=== PATIENT | female | born 1955 | race American Indian/Alaskan Native ===

== ENCOUNTER 2017-11-23 19:57 | Observation (INO) ==
[2017-11-23] MEDS ORDERED: IOPAMIDOL 100 ML BOTTLE IV ONE (19:58)
[2017-11-23] MEDS ORDERED: 0.9 % SODIUM CHLORIDE 1,000 ML IV ONE (20:03)
[2017-11-23] MEDS ORDERED: ONDANSETRON 4 MG/2 ML VIAL IV ONE (20:06)
[2017-11-23] MEDS ORDERED: LACTATED RINGERS 1,000 ML IV ONE (20:06)
--- NOTE | 2017-11-23 20:07 | Emergency Department Note ---
Nausea/Vomiting/Diarrhea HPI - General Chief complaint: Nausea/Vomiting/Diarrhea Stated complaint: nausea, vomiting, abd pain Time Seen by Provider: 11/23/17 20:03 Source: EMS Mode of arrival: EMS Limitations: no limitations - History of Present Illness HPI Narrative: This patient comes in for nausea and vomiting. I saw her on November 16 with what appear to be a partially treated UTI and we switched her to Cipro. She says she is continued to be nauseated with some vomiting since then. She does not have much abdominal pain and what she does have she attributes to the vomiting. - Related Data Home Medications Medication Instructions Recorded Confirmed freestyle blood glucose MISCELLANE 02/13/16 09/22/16 freestyle lite strip MISCELLANE 02/13/16 09/22/16 lancets See Dose Instructions .ROUTE 02/13/16 09/22/16 .MEDSUPPLY HYDROcodone/APAP 5/325MG [[place] 1 tab PO QIDP PRN 07/26/16 11/23/17 5-325Mg] Metoclopramide [Reglan] 10 mg PO QIDP PRN 11/23/17 11/23/17 tiZANidine [Zanaflex] 4 mg PO QIDP PRN 11/23/17 11/23/17 Previous Rx's Medication Instructions Recorded Ondansetron HCl [Zofran ODT] 4 mg SL Q4-6HP PRN #10 tab 11/16/17 Allergies Allergy/AdvReac Type Severity Reaction Status Date / Time venom-honey bee Allergy Severe Anaphylaxis Verified 11/16/17 12:00 [bee venom (honey bee)] capsaicin AdvReac Mild Hives Verified 11/24/17 06:20 codeine AdvReac Mild Nausea Verified 11/24/17 06:20 Minocycline AdvReac Mild Nausea Verified 11/16/17 12:00 Oxycodone AdvReac Mild Unknown Verified 11/24/17 06:20 Review of Systems All systems ED: reviewed and negative except as stated. Past Medical History - Past Medical History Medical history: Reports: arthritis, coronary artery disease, DM, glaucoma, other Surgical history ED: Reports: appendectomy, cholecystectomy, coronary bypass ( CABG), VU/BSO (tubal ligation) - Social History smoking status: Current every day smoker Alcohol use: Reports: Occasionally Drug use: Reports: none Physical Exam Limitations: no limitations General appearance: alert Head: atraumatic Eye: Present: normal appearance ENT: normal exam Neck: Present: normal inspection Chest: Present: normal inspection Respiratory: Present: normal lung sounds bilaterally Cardiovascular: Present: regular rate, normal rhythm, normal heart sounds Abdominal: Present: soft, tenderness. Absent: distention Abdominal tenderness: Present: diffuse, mild Neurological: Present: alert Psychiatric: Present: normal affect, normal mood Skin: Present: warm, dry, intact Course Vital Signs Temperature 98.7 F 11/23/17 19:59 Pulse Rate 79 11/23/17 19:59 Respiratory Rate 19 11/23/17 19:59 Blood Pressure 207/90 11/23/17 19:59 Pulse Oximetry (%) 99 11/23/17 19:59 Temperature 97.6 F 11/24/17 01:30 Pulse Rate 85 11/24/17 01:30 Respiratory Rate 18 11/24/17 01:30 Blood Pressure 164/95 11/23/17 23:18 Pulse Oximetry (%) 100 11/24/17 01:30 Nausea/Vomiting/Diarrhea - [facility] Narrative Medical decision making narrative: This patient had abnormal electrolytes with a sodium of 125 potassium 2.6. She will be admitted to the hospital by the hospitalist service. - Lab Data Lab results reviewed: Yes I reviewed the patient's lab results. Result diagrams: 11/24/17 04:00 11/23/17 20:30 Lab Results 11/23/17 11/23/17 11/23/17 Range/Units 20:20 20:30 20:30 WBC 7.1 (4.5-11.0) K/mcL RBC 4.28 (4.00-5.20) M/mcL Hgb 13.4 (12.0-15.0) g/dL Hct 39.0 (36.0-48.0) % MCV 91.2 (80.0-100.0) fL MCH 31.4 (26.0-34.0) pg MCHC 34.4 (31.0-36.0) g/dL RDW 13.7 (11.5-14.5) % Plt Count 247 (140-440) K/mcL MPV 6.7 L (7.4-10.4) fL Gran % 60.6 (38.0-78.0) % Lymph % (Auto) 30.4 (15.5-49.0) % [place] % (Auto) 7.7 (1.0-12.0) % Eos % (Auto) 0.9 (0.0-7.0) % Baso % (Auto) 0.4 (0.0-2.0) % Gran # 4.3 (1.8-8.0) K/mcL Lymph # (Auto) 2.1 (1.5-4.8) K/mcL Turner # (Auto) 0.5 (0.1-0.9) K/mcL Eos # (Auto) 0.1 (0.0-0.7) K/mcL Baso # (Auto) 0 (0.0-0.3) K/mcL Sodium 125 L (133-145) mmol/L Potassium 2.6 L* (3.3-5.1) mmol/L Chloride 83 L (96-108) mmol/L Carbon Dioxide 31 H (22-30) mmol/L Anion Gap 11.0 (8-16) BUN 6 (6-20) mg/dl Creatinine 0.7 (0.6-1.1) mg/dl GFR Calculation 94 Glucose 81 (70-105) mg/dL Calcium 8.8 (8.6-10.4) mg/dl Total Bilirubin 0.5 (0.0-1.0) mg/dL AST 23 (0-37) U/l ALT 18 (0-40) U/l Alkaline Phosphatase 90 (39-117) U/L Troponin T (0-0.03) ng/ml Total Protein 6.8 (5.9-8.4) gm/dL Albumin 4.0 (3.2-5.2) gm/dL Globulin 2.8 (2.2-3.7) gm/dL Albumin/Globulin Ratio 1.4 (1.0-2.3) Lipase 32 (7-60) U/L Urine Color Colorless Urine Appearance Clear Urine pH 8.0 (5.0-9.0) Ur Specific [place] 1.002 (1.000-1.035) Urine Protein 30 A (NEG) mg/dL Urine Glucose (UA) Negative (NEG) mg/dL Urine Ketones Neg (NEG) mg/dL Urine Occult Blood 0.03 A (<0.03) mg/dL Urine Nitrate Neg (NEG) Urine Bilirubin Neg (NEG) mg/dL Urine Urobilinogen Neg (NEG) mg/dL Ur Leukocyte Esterase 25 A (NEG) /uL Urine RBC 1 (0-1) /hpf Urine WBC 2 (0-4) /hpf Ur Squamous Epith Cells < 1 (0-4) /hpf Urine Bacteria 0 (0) /hpf Urine Mucus Few (0) /hpf Ur Culture Indicated? No 11/23/17 Range/Units 20:30 WBC (4.5-11.0) K/mcL RBC (4.00-5.20) M/mcL Hgb (12.0-15.0) g/dL Hct (36.0-48.0) % MCV (80.0-100.0) fL MCH (26.0-34.0) pg MCHC (31.0-36.0) g/dL RDW (11.5-14.5) % Plt Count (140-440) K/mcL MPV (7.4-10.4) fL Gran % (38.0-78.0) % Lymph % (Auto) (15.5-49.0) % Turner % (Auto) (1.0-12.0) % Eos % (Auto) (0.0-7.0) % Baso % (Auto) (0.0-2.0) % Gran # (1.8-8.0) K/mcL Lymph # (Auto) (1.5-4.8) K/mcL Turner # (Auto) (0.1-0.9) K/mcL Eos # (Auto) (0.0-0.7) K/mcL Baso # (Auto) (0.0-0.3) K/mcL Sodium (133-145) mmol/L Potassium (3.3-5.1) mmol/L Chloride (96-108) mmol/L Carbon Dioxide (22-30) mmol/L Anion Gap (8-16) BUN (6-20) mg/dl Creatinine (0.6-1.1) mg/dl GFR Calculation Glucose (70-105) mg/dL Calcium (8.6-10.4) mg/dl Total Bilirubin (0.0-1.0) mg/dL AST (0-37) U/l ALT (0-40) U/l Alkaline Phosphatase (39-117) U/L Troponin T < 0.01 (0-0.03) ng/ml Total Protein (5.9-8.4) gm/dL Albumin (3.2-5.2) gm/dL Globulin (2.2-3.7) gm/dL Albumin/Globulin Ratio (1.0-2.3) Lipase (7-60) U/L Urine Color Urine Appearance Urine pH (5.0-9.0) Ur Specific [place] (1.000-1.035) Urine Protein (NEG) mg/dL Urine Glucose (UA) (NEG) mg/dL Urine Ketones (NEG) mg/dL Urine Occult Blood (<0.03) mg/dL Urine Nitrate (NEG) Urine Bilirubin (NEG) mg/dL Urine Urobilinogen (NEG) mg/dL Ur Leukocyte Esterase (NEG) /uL Urine RBC (0-1) /hpf Urine WBC (0-4) /hpf Ur Squamous Epith Cells (0-4) /hpf Urine Bacteria (0) /hpf Urine Mucus (0) /hpf Ur Culture Indicated? Disposition Pt seen by SIDE BOSS/PA only: No Clinical Impression: Hypokalemia, Hyponatremia Disposition: Xfer As Inpt ([facility]) Condition: Fair
[2017-11-23 21:25] LABS: Basophils # (Auto) 0 K/mcL (0.0-0.3); Basophils % (Auto) 0.4 % (0.0-2.0); Eosinophils # (Auto) 0.1 K/mcL (0.0-0.7); Eosinophils % (Auto) 0.9 % (0.0-7.0); Granulocytes % (Auto) 60.6 % (38.0-78.0); Lymphocytes # (Auto) 2.1 K/mcL (1.5-4.8); Lymphocytes % (Auto) 30.4 % (15.5-49.0); Mean Cell Volume 91.2 fL (80.0-100.0); Mean Corpuscular HGB Conc 34.4 g/dL (31.0-36.0); Mean Corpuscular Hemoglobin 31.4 pg (26.0-34.0); Monocytes # (Auto) 0.5 K/mcL (0.1-0.9); Monocytes % (Auto) 7.7 % (1.0-12.0); Platelet Count 247 K/mcL (140-440); RBC 4.28 M/mcL (4.00-5.20); Red Cell Distribution Width 13.7 % (11.5-14.5)
[2017-11-23 21:30] LABS: Appearance,Urine CLEAR; Bacteria,Urine 0 /hpf (0); Bilirubin,Urine NEG (NEG); Color,Urine COLORLESS; Glucose,Urine (UA) NEGATIVE (NEG); Leukocyte Esterase,Urine 25 /uL (NEG); Mucus,Urine FEW /hpf (0); Protein,Urine 30 mg/dL (NEG); Specific Gravity,Urine 1.002 (1.000-1.035); Urine Blood 0.03 mg/dL (<0.03); Urine RBC 1 /hpf (0-1); Urine Squamous Epithelial Cell < 1 /hpf (0-4); Urine WBC 2 /hpf (0-4); Urobilinogen,Urine NEG (NEG)
[2017-11-23 21:56] LABS: ALT/SGPT 18 U/l (0-40); Albumin/Globulin Ratio 1.4 (1.0-2.3); Alkaline Phosphatase 90 U/L (39-117); Blood Urea Nitrogen 6 mg/dl (6-20); Lipase 32 U/L (7-60)
[2017-11-24] MEDS ORDERED: ACETAMINOPHEN 325 MG TABLET PO PRN (02:43)
[2017-11-24] MEDS ORDERED: DEXTROSE 50% 50 ML VIAL IV PRN (02:43)
[2017-11-24] MEDS ORDERED: DEXTROSE 31 GM ORAL.SUSP PO PRN (02:43)
[2017-11-24] MEDS ORDERED: POTASSIUM CHLORIDE 20 MEQ PACKET ONE ×2 (03:28→04:58)
[2017-11-24] MEDS: POTASSIUM CHLORIDE 20 MEQ PACKET PO SCH ×5 (03:28→10:17)
--- NOTE | 2017-11-24 03:30 | Internal Med History&Physical ---
Medical - H&P: HPI Patient information: Note initiated : 11/24/17 at 3:30 am Service Date, if different from initiated Date: [] Patient: Gina Garber 62 y/o F admitted on 11/24/17 for nausea, vomiting, abd pain. Chief Complaint: [] Chief complaint: Nausea vomiting thyroid History of present illness: Ms. Garber is a 62 year old F smoker with significant PMH of HTN, DM, 4 vessel CABG, s/p 2 cardiac stent, mitral valve repair, osteoarthritis, has recurrent nausea vomiting and diarrhea. She denies any food poisoning or sick contacts, or any tarry or bloody stool. Her potassium is 2.6, sodium 125. She says she regularly sipping/drinks 1-1/2-2 gallons of fluid a day. She was seen at ER on November 16 for similar symptoms. Otherwise she is asymptomatic. She will be placed on observation for electrolyte replacement. All systems: reviewed and no additional remarkable complaints except as stated - Gastrointestinal Gastrointestinal: Present: diarrhea, nausea, vomiting Medical - H&P: PMH Medical history: HTN, DM, 4 vessel CABG, s/p 2 cardiac stent, mitral valve repair, osteoarthritis T12 compression fracture 07/2017 Surgical history: s/p CABGx4, s/p MV repair, appendectomy, cholecystectomy, coronary bypass (CABG) , VU/BSO (tubal ligation) Pertinent family history: DM, CAD, alcohol and drug abuse Smoking status: Current every day smoker Drug use: none Alcohol use: none Medical - H&P: Meds Home Medications Medication Instructions Recorded Confirmed Type RX: HYDROcodone/APAP 5/325MG 1 tab PO QIDP PRN 07/26/16 11/23/17 History [[place] 5-325Mg] Ondansetron HCl [Zofran ODT] 4 mg SL Q4-6HP PRN #10 tab 11/16/17 11/23/17 Rx Metoclopramide [Reglan] 10 mg PO QIDP PRN 11/23/17 11/23/17 History tiZANidine [Zanaflex] 4 mg PO QIDP PRN 11/23/17 11/23/17 History Allergies Allergy/AdvReac Type Severity Reaction Status Date / Time venom-honey bee Allergy Severe Anaphylaxis Verified 11/16/17 12:00 [bee venom (honey bee)] capsaicin AdvReac Mild Hives Verified 11/24/17 06:20 codeine AdvReac Mild Nausea Verified 11/24/17 06:20 Minocycline AdvReac Mild Nausea Verified 11/16/17 12:00 Oxycodone AdvReac Mild Unknown Verified 11/24/17 06:20 Medical - H&P: Exam - Constitutional Vitals: Temp Pulse Resp BP Pulse Ox 97.6 F 85 18 164/95 100 11/24/17 01:30 11/24/17 01:30 11/24/17 01:30 11/23/17 23:18 11/24/17 01:30 - Head Head exam: Present: atraumatic, normocephalic - Eye Eye exam: Present: EOMI Pupils: Present: normal accommodation, PERRL - ENT ENT exam: Present: mucous membranes moist - Neck Neck exam: Present: full ROM. Absent: lymphadenopathy, meningismus - Respiratory Respiratory exam: Present: CTAB. Absent: accessory muscle use - Cardiovascular Cardiovascular exam: Present: +S1, +S2. Absent: gallop, rubs - GI/Abdominal GI/Abdominal exam: Present: normal bowel sounds. Absent: guarding, rebound, tenderness - Neurological Exam Neurological exam: Present: CN II-XII intact, normal gait, oriented X3 Medical - H&P: Reslt - Labs CBC & Chem 7: 11/24/17 04:00 11/25/17 03:50 Labs: Short CBC 11/23/17 Range/Units 20:30 WBC 7.1 (4.5-11.0) K/mcL Hgb 13.4 (12.0-15.0) g/dL Hct 39.0 (36.0-48.0) % Plt Count 247 (140-440) K/mcL BMP 11/23/17 20:30 Sodium 125 L Potassium 2.6 L* Chloride 83 L Carbon Dioxide 31 H BUN 6 Creatinine 0.7 Glucose 81 Calcium 8.8 Cardiac Enzymes 11/23/17 Range/Units 20:30 Troponin T < 0.01 (0-0.03) ng/ml Liver Function 11/23/17 Range/Units 20:30 Total Bilirubin 0.5 (0.0-1.0) mg/dL AST 23 (0-37) U/l ALT 18 (0-40) U/l Alkaline Phosphatase 90 (39-117) U/L Albumin 4.0 (3.2-5.2) gm/dL Urine 11/23/17 Range/Units 20:20 Urine Color Colorless Urine Appearance Clear Urine pH 8.0 (5.0-9.0) Ur Specific [place] 1.002 (1.000-1.035) Urine Protein 30 A (NEG) mg/dL Urine Glucose (UA) Negative (NEG) mg/dL - Imaging and Cardiology CT scan - abdomen Additional comments: FINDINGS: Lung bases are negative. There is atelectasis at the bases bilaterally. No consolidation or mass. No pleural fluid. No pericardial fluid. Negative liver. No focal intrahepatic abnormality. Normal smooth contour. No cirrhosis. No ascites. Common bile duct measures 7 mm. No choledocholithiasis. No splenomegaly. Normal enhancement splenic and portal veins. Pancreas is negative. No pancreatic mass. No peripancreatic abnormality. Negative adrenal glands. There is a simple cyst in the left mid kidney. This measures approximately 2.2 cm. No solid renal mass. No hydronephrosis. There is sigmoid diverticulosis. No CT manifestations of diverticulitis. No pericolonic inflammatory change. No diverticular abscess. No pneumoperitoneum. No detectable colonic mass. Appendix is not visualized and has apparently been removed. No mechanical small bowel obstruction. Small bowel is normal. No retroperitoneal or mesenteric adenopathy. No pneumoperitoneum. No biliary or portal venous gas. No pneumatosis. Uterus is present. No detectable uterine mass. No adnexal mass. Negative lumbar spine. There is a compression deformity of the T12 vertebral body this is a new finding since 06/17/2016. It is also a new finding since a chest CT scan dated 05/24/2017. This is probably a benign osteoporotic fracture. Other vertebral body heights are maintained. Sacrum is negative. Pelvis is negative. IMPRESSION: 1. T12 compression fracture, new since 05/24/2017 2. Sigmoid diverticulosis. No CT evidence for diverticulitis The exam was performed using radiation dose optimization techniques including, but not limited to, automated exposure control, adjustment of the mA and/or kV according to patient size and use of iterative reconstruction technique. Interpreted and Authenticated by: Cam Melendez 11/24/17 Medical - H&P: A/P (1) Water intoxication syndrome Current visit: Yes Status: Acute (2) Hyponatremia Current visit: Yes Status: Acute (3) Hypokalemia Current visit: Yes Status: Chronic - Narrative A/P Narrative: Check UA, BNP, check and replace other electrolytes we will place her on observation telemetry, fluid restriction, serial BMP for electrolytes monitoring Medical - H&P: Qual - VTE Deep Vein Thrombosis/Pulmonary Embolism Present on Admission: No
[2017-11-24] MEDS ORDERED: HYDROcodone/APAP 5/325MG TABLET PO ONE (03:32)
[2017-11-24] MEDS: LIDOCAINE PATCH TOPICAL SCH ×3 (04:45→20:32)
[2017-11-24] MEDS: 0.9 % SODIUM CHLORIDE 10 ML SYRINGE IV SCH ×3 (05:26→20:34)
--- NOTE | 2017-11-24 05:59 | Cat Scan Report ---
CLINICAL INFORMATION: Abdominal pain for 2 weeks COMPARISON: 06/17/2016 TECHNIQUE: Axial images were obtained through the abdomen and pelvis. Sagittally and coronally reformatted images. 80 mL contrast material injected intravenously. Oral contrast material was administered FINDINGS: Lung bases are negative. There is atelectasis at the bases bilaterally. No consolidation or mass. No pleural fluid. No pericardial fluid. Negative liver. No focal intrahepatic abnormality. Normal smooth contour. No cirrhosis. No ascites. Common bile duct measures 7 mm. No choledocholithiasis. No splenomegaly. Normal enhancement splenic and portal veins. Pancreas is negative. No pancreatic mass. No peripancreatic abnormality. Negative adrenal glands. There is a simple cyst in the left mid kidney. This measures approximately 2.2 cm. No solid renal mass. No hydronephrosis. There is sigmoid diverticulosis. No CT manifestations of diverticulitis. No pericolonic inflammatory change. No diverticular abscess. No pneumoperitoneum. No detectable colonic mass. Appendix is not visualized and has apparently been removed. No mechanical small bowel obstruction. Small bowel is normal. No retroperitoneal or mesenteric adenopathy. No pneumoperitoneum. No biliary or portal venous gas. No pneumatosis. Uterus is present. No detectable uterine mass. No adnexal mass. Negative lumbar spine. There is a compression deformity of the T12 vertebral body this is a new finding since 06/17/2016. It is also a new finding since a chest CT scan dated 05/24/2017. This is probably a benign osteoporotic fracture. Other vertebral body heights are maintained. Sacrum is negative. Pelvis is negative. IMPRESSION: 1. T12 compression fracture, new since 05/24/2017 2. Sigmoid diverticulosis. No CT evidence for diverticulitis The exam was performed using radiation dose optimization techniques including, but not limited to, automated exposure control, adjustment of the mA and/or kV according to patient size and use of iterative reconstruction technique. Interpreted and Authenticated by: Cam Melendez 11/24/17
[2017-11-24 06:14] LABS: Basophils # (Auto) 0 K/mcL (0.0-0.3); Basophils % (Auto) 0.3 % (0.0-2.0); Eosinophils # (Auto) 0.1 K/mcL (0.0-0.7); Eosinophils % (Auto) 0.8 % (0.0-7.0); Granulocytes % (Auto) 67.5 % (38.0-78.0); Lymphocytes # (Auto) 1.5 K/mcL (1.5-4.8); Lymphocytes % (Auto) 24.3 % (15.5-49.0); Mean Cell Volume 91.7 fL (80.0-100.0); Mean Corpuscular HGB Conc 34.9 g/dL (31.0-36.0); Monocytes # (Auto) 0.4 K/mcL (0.1-0.9); Monocytes % (Auto) 7.1 % (1.0-12.0); Platelet Count 213 K/mcL (140-440); RBC 3.73 M/mcL (4.00-5.20); Red Cell Distribution Width 13.7 % (11.5-14.5)
[2017-11-24 06:56] LABS: proBNP 584.9 pg/ml (0-125)
[2017-11-24 07:08] LABS: Blood Urea Nitrogen 6 mg/dl (6-20)
[2017-11-24] MEDS: INSULIN LISPRO 1 UNIT/0.01 ML UNIT SQ SCH ×4 (07:53→20:36)
[2017-11-24] MEDS ORDERED: MAGNESIUM SULFATE 4 GM/100 ML BAG IV ONE (09:00)
[2017-11-24] MEDS: CALCIUM W/VIT D3 500 MG TABLET PO SCH ×2 (13:47→20:41)
[2017-11-24] MEDS: HYDROcodone/APAP 5/325MG TABLET PO PRN ×2 (13:49→20:41)
[2017-11-24] MEDS: NICOTINE 14 MG PATCH TOPICAL SCH (13:50)
[2017-11-24 14:55] LABS: Blood Urea Nitrogen 8 mg/dl (6-20)
[2017-11-24] MEDS ORDERED: POTASSIUM CHLORIDE 20 MEQ TABLET PO SCH (15:00)
[2017-11-24 16:20] LABS: Blood Urea Nitrogen 11 mg/dl (6-20)
[2017-11-24 16:52] LABS: Appearance,Urine CLEAR; Bacteria,Urine 0 /hpf (0); Bilirubin,Urine NEG (NEG); Color,Urine STRAW; Glucose,Urine (UA) NEGATIVE (NEG); Leukocyte Esterase,Urine 25 /uL (NEG); Protein,Urine 30 mg/dL (NEG); Specific Gravity,Urine 1.012 (1.000-1.035); Urine Blood 0.03 mg/dL (<0.03); Urine RBC 1 /hpf (0-1); Urine Squamous Epithelial Cell 1 /hpf (0-4); Urine WBC 2 /hpf (0-4); Urobilinogen,Urine NEG (NEG)
[2017-11-24 21:11] LABS: Blood Urea Nitrogen 15 mg/dl (6-20)
[2017-11-25] MEDS: 0.9 % SODIUM CHLORIDE 10 ML SYRINGE IV SCH (04:08)
[2017-11-25] MEDS: HYDROcodone/APAP 5/325MG TABLET PO PRN ×2 (04:15→10:42)
[2017-11-25 06:41] LABS: ALT/SGPT 15 U/l (0-40); Albumin 3.6 gm/dL (3.2-5.2); Albumin/Globulin Ratio 1.4 (1.0-2.3); Alkaline Phosphatase 90 U/L (39-117); Blood Urea Nitrogen 21 mg/dl (6-20)
[2017-11-25] MEDS: INSULIN LISPRO 1 UNIT/0.01 ML UNIT SQ SCH (07:14)
--- NOTE | 2017-11-25 08:13 | Discharge Summary ---
Medical - DS: Prov Patient information: Note initiated : 11/25/17 at 8:11 am Service Date, if different from initiated Date: [] Patient: Gina Garber 62 y/o F admitted on 11/24/17 for nausea, vomiting, abd pain. Chief Complaint: [] Date of admission: 11/24/17 01:30 Discharge date: 11/25/17 Primary care physician: Marina Khanna Attending physician on admission: Gage Osei Consults: 11/23/17 22:42 Consult to Physician [CONS] Stat Comment: Consulting Provider: Gage Osei Reason For Exam: Physician to Consult Medical - DS: Meds - Discharge Medications Prescriptions: Calcium W/Vit D3 500 mg PO DAILY #30 tab Lidocaine [Lidoderm] 1 patch TOPICAL HS #14 patch Nicotine [Nicoderm] 14 mg TOPICAL DAILY@1000 #10 patch Active and Home Medications: Home Medications HYDROcodone/APAP 5/325MG [Monon 5-325Mg] 1 tab PO QIDP PRN 07/26/16 [History Confirmed 11/23/17 Last Taken Unknown] Ondansetron HCl [Zofran ODT] 4 mg SL Q4-6HP PRN #10 tab 11/16/17 [Rx Confirmed 11/23/17 Last Taken Unknown] Metoclopramide [Reglan] 10 mg PO QIDP PRN 11/23/17 [History Confirmed 11/23/17 Last Taken Unknown] tiZANidine [Zanaflex] 4 mg PO QIDP PRN 11/23/17 [History Confirmed 11/23/17 Last Taken Unknown] New medications: Lidoderm 5% patch, topical application to back pain from T12 compression fracture, 12 hours a day. Nicotine patch, calcium with vitamin D Medical - DS: Hosp Hospital course: Mr. Garber is a 62 year old F smoker with significant PMH of HTN, DM, 4 vessel CABG, s/p 2 cardiac stent, mitral valve repair, osteoarthritis, has recurrent nausea vomiting and diarrhea. She denies any food poisoning or sick contacts, or any tarry or bloody stool. Her potassium is 2.6, sodium 125. She says she regularly sipping/drinks 1-1/2-2 gallons of fluid a day. She was seen at ER on November 16 for similar symptoms. Her symptoms of nausea vomiting and diarrhea consistent with water intoxication. Her hyponatremia responded to fluid restriction, and her potassium and other electrolytes (including magnesium) replace it orally and intravenously, while she is observed on telemetry. I explained to her that she should not overdo drinking too much water, iced tea etc., that she will have water intoxication. She understood now and will restrain from overdrinking water. Her back pain from recent T12 compression fracture responded to topical Lidoderm patch and her nicotine craving (active smoker) is controlled with the nicotine patch. I strongly advised her to completely quit smoking. She agrees and desires to have nicotine patch for helping her to stop smoking. Discharge diagnosis: Water intoxication Secondary discharge diagnosis: Hyponatremia Hypomagnesemia Hypokalemia Uncontrolled pain, T12 compression fracture Tobacco abuse - Time Spent with Patient Total time spent providing and/or coordinating discharge services: Greater than 30 minutes (Stop smoking, do not over drink fluids: Water, ice tea , etc.) Medical - DS: Exam - Constitutional Vitals: Vital Signs Temp Pulse Resp BP Pulse Ox 11/25/17 06:41 97.4 F 85 16 130/67 98 11/25/17 06:36 78 11/25/17 05:12 145/80 11/25/17 04:00 98.3 F 82 12 190/94 100 11/24/17 23:00 98.2 F 72 12 111/57 97 11/24/17 19:00 97.8 F 70 12 154/77 100 11/24/17 14:38 97.7 F 70 12 145/71 100 11/24/17 11:34 97.1 F 71 12 133/69 98 11/24/17 10:00 97.9 F 74 16 141/71 99 Intake and Output 11/24/17 11/25/17 11/25/17 21:59 05:59 13:59 Intake Total 422 / 422 90 / 90 Output Total 1000 / 1000 450 / 450 Balance -578 / -578 -360 / -360 Intake: IV 62 / 62 MAGNESIUM SULFATE 4 gm In 100 62 / 62 ml @ 50 mls/hr IV ONCE ONE Rx#: [id number] Oral 360 / 360 90 / 90 Output: Void Amount 1000 / 1000 450 / 450 Other: Stool Size Small Stool Color Brown Green Stool Consistency Liquid # Bowel Movements 1 Weight 117 lb 8 oz General appearance: no acute distress - Head Head exam: Present: atraumatic, normocephalic - Eye Eye exam: Present: EOMI Pupils: Present: normal accommodation, PERRL - ENT ENT exam: Present: mucous membranes moist - Neck Neck exam: Present: full ROM. Absent: meningismus - Respiratory Respiratory exam: Present: CTAB. Absent: accessory muscle use - Cardiovascular Cardiovascular exam: Present: +S1, +S2. Absent: gallop, rubs - GI/Abdominal GI/Abdominal exam: Present: normal bowel sounds, soft. Absent: guarding, rebound, tenderness - Extremities Exam Extremities exam: Present: full ROM, normal capillary refill. Absent: pedal edema, tenderness - Neurological Exam Neurological exam: Present: alert, CN II-XII intact, oriented X3 - Skin Skin exam: Present: dry, intact, warm Medical - DS: Data Procedures and tests throughout hospitalization: Procedure(s): CT abdomen pelvis w con Accession Number(s): [id number] CLINICAL INFORMATION: Abdominal pain for 2 weeks COMPARISON: 06/17/2016 TECHNIQUE: Axial images were obtained through the abdomen and pelvis. Sagittally and coronally reformatted images. 80 mL contrast material injected intravenously. Oral contrast material was administered FINDINGS: Lung bases are negative. There is atelectasis at the bases bilaterally. No consolidation or mass. No pleural fluid. No pericardial fluid. Negative liver. No focal intrahepatic abnormality. Normal smooth contour. No cirrhosis. No ascites. Common bile duct measures 7 mm. No choledocholithiasis. No splenomegaly. Normal enhancement splenic and portal veins. Pancreas is negative. No pancreatic mass. No peripancreatic abnormality. Negative adrenal glands. There is a simple cyst in the left mid kidney. This measures approximately 2.2 cm. No solid renal mass. No hydronephrosis. There is sigmoid diverticulosis. No CT manifestations of diverticulitis. No pericolonic inflammatory change. No diverticular abscess. No pneumoperitoneum. No detectable colonic mass. Appendix is not visualized and has apparently been removed. No mechanical small bowel obstruction. Small bowel is normal. No retroperitoneal or mesenteric adenopathy. No pneumoperitoneum. No biliary or portal venous gas. No pneumatosis. Uterus is present. No detectable uterine mass. No adnexal mass. Negative lumbar spine. There is a compression deformity of the T12 vertebral body this is a new finding since 06/17/2016. It is also a new finding since a chest CT scan dated 05/24/2017. This is probably a benign osteoporotic fracture. Other vertebral body heights are maintained. Sacrum is negative. Pelvis is negative. IMPRESSION: 1. T12 compression fracture, new since 05/24/2017 2. Sigmoid diverticulosis. No CT evidence for diverticulitis The exam was performed using radiation dose optimization techniques including, but not limited to, automated exposure control, adjustment of the mA and/or kV according to patient size and use of iterative reconstruction technique. Interpreted and Authenticated by: Cam Melendez 11/24/17 Labs on day of discharge: Labs from last 24 hours 11/25/17 11/24/17 11/24/17 03:50 19:48 16:00 Sodium 133 130 L Potassium 4.8 5.0 Chloride 95 L 94 L Carbon Dioxide 29 29 Anion Gap 9.0 7.0 L BUN 21 H 15 Creatinine 0.7 0.7 GFR Calculation 94 94 Glucose 104 102 Calcium 9.6 9.3 Total Bilirubin 0.2 AST 20 ALT 15 Alkaline Phosphatase 90 Total Protein 6.2 Albumin 3.6 Globulin 2.6 Albumin/Globulin Ratio 1.4 Urine Color Straw Urine Appearance Clear Urine pH 7.0 Ur Specific [place] 1.012 Urine Protein 30 A Urine Glucose (UA) Negative Urine Ketones Neg Urine Occult Blood 0.03 A Urine Nitrate Neg Urine Bilirubin Neg Urine Urobilinogen Neg Ur Leukocyte Esterase 25 A Urine RBC 1 Urine WBC 2 Ur Squamous Epith Cells 1 Urine Bacteria 0 Ur Culture Indicated? No 11/24/17 11/24/17 15:16 12:11 Sodium 131 L 131 L Potassium 5.5 H 6.3 H* Chloride 95 L 95 L Carbon Dioxide 28 27 Anion Gap 8.0 9.0 BUN 11 8 Creatinine 0.7 0.6 GFR Calculation 94 99 Glucose 124 H 92 Calcium 8.7 9.1 Total Bilirubin AST ALT Alkaline Phosphatase Total Protein Albumin Globulin Albumin/Globulin Ratio Urine Color Urine Appearance Urine pH Ur Specific [place] Urine Protein Urine Glucose (UA) Urine Ketones Urine Occult Blood Urine Nitrate Urine Bilirubin Urine Urobilinogen Ur Leukocyte Esterase Urine RBC Urine WBC Ur Squamous Epith Cells Urine Bacteria Ur Culture Indicated? Medical - DS: A/P - Patient/Caregiver Discharge Instructions Activity: increase activity as tolerated Diet: Low Fat, Consistent Carbohydrate Additional Instructions: Do not overdrink to much water, ice tea, etc., enough to keep hydrated, but not overdoing it. Stop smoking (do not smoke while on nicotine patch, will cause nicotine overdose and toxicity). Prescriptions: Calcium W/Vit D3 500 mg PO DAILY #30 tab Lidocaine [Lidoderm] 1 patch TOPICAL HS #14 patch Nicotine [Nicoderm] 14 mg TOPICAL DAILY@1000 #10 patch - Problem Maintenance (1) Water intoxication syndrome Status: Acute (2) Hyponatremia Status: Acute (3) Hypokalemia Status: Chronic (4) T12 compression fracture Status: Acute (5) Tobacco abuse Status: Chronic - Follow up Plan Follow up with: Marina Khanna [Primary Care Provider] - (Follow-up with Dr. Khanna in 1-2 weeks) Disposition: Home, Self-Care Prognosis: Fair Rehab Potential: Good Overall status at discharge: patient is back to baseline Medical - DS: Qual - VTE Deep Vein Thrombosis/Pulmonary Embolism Present on Admission: No
[2017-11-25] MEDS: LIDOCAINE PATCH TOPICAL SCH (09:09)
[2017-11-25] MEDS: CALCIUM W/VIT D3 500 MG TABLET PO SCH (09:09)
[2017-11-25] MEDS: NICOTINE 14 MG PATCH TOPICAL SCH (09:19)
== END 2017-11-25 11:20 | disposition home or self-care (01) ==
LOC: ED 19:57 → INTOOBSV 11-24 01:30 → ICU 11-24 01:30
PROVIDERS: ADMIT Emergency Medicine; ATTEND Emergency Medicine

== ENCOUNTER 2020-11-15 19:05 | Inpatient (IN) ==
--- NOTE | 2020-11-15 19:26 | Emergency Department Note ---
HPI General Chief complaint: Fall Stated complaint: fall off chair Time Seen by Provider: 11/15/20 19:09 Source: EMS Mode of arrival: wheelchair Limitations: no limitations History of Present Illness HPI Narrative: Narrative: Patient presents emergency department for evaluation of left hip pain after fall. She slipped from a chair injuring her left hip. She did strike her head. No loss of consciousness. No neck pain. She does not take any blood thinners. She does not drink alcohol. She complains of pain to the left hip. She is brought to the emergency department via EMS and received Zofran and fentanyl prehospital. No other complaints. Related Data Home Medications Medication Instructions Recorded Confirmed aspirin 325 mg tablet 325 mg PO .COMPLEX 08/20/19 10/20/20 lidocaine 5 % topical cream 1 applic TOPICAL .COMPLEX 08/20/19 10/20/20 tizanidine 4 mg capsule 4 mg PO .COMPLEX 08/20/19 10/20/20 Previous Rx's Medication Instructions Recorded hydrocodone-acetaminophen 1 - 2 tab PO Q6HP PRN #20 tab 12/16/17 potassium chloride 20 meq PO BIDCC #10 tab 12/16/17 Allergies Allergy/AdvReac Type Severity Reaction Status Date / Time venom-honey bee Allergy Severe Anaphylaxis Verified 11/15/20 19:54 [bee venom (honey bee)] capsaicin AdvReac Mild Hives Verified 11/15/20 19:54 codeine AdvReac Mild Nausea Verified 11/15/20 19:54 minocycline [Minocycline] AdvReac Mild Nausea Verified 11/15/20 19:54 oxycodone [Oxycodone] AdvReac Mild Unknown Verified 11/15/20 19:54 Review of Systems ROS ROS Narrative: Narrative: As above, all other systems reviewed and negative. [facility] Narrative Patient History Narrative: Narrative: Reviewed Medical/Surgical/Family History All Active Problems (Updated 11/15/20 @ 20:48 by Benson Linares MD) Closed hip fracture (Acute) Pain in right shoulder (Acute) Pain in thoracic spine (Chronic) Age-related osteoporosis with current pathological fracture, vertebra(e), initial encounter for fracture (Chronic) MRSA (methicillin resistant staph aureus) culture positive (Chronic) History of stroke (Chronic) Anxiety (Chronic) COPD (chronic obstructive pulmonary disease) (Chronic) Asthma (Chronic) GERD (gastroesophageal reflux disease) (Chronic) Type 2 diabetes mellitus (Chronic) Osteoarthritis (Chronic) Depression (Chronic) Heart disease (Chronic) Pain in left shoulder (Chronic) Chronic pain (Chronic) Low back pain (Chronic) Radiculopathy, thoracic region (Chronic) Radiculopathy, lumbar region (Chronic) Pain in right shoulder (Chronic) Hyponatremia syndrome (Acute) Nausea & vomiting (Acute) Dyspepsia (Acute) Pancreatitis (Acute) Hypertension (Acute) Hyponatremia (Acute) Urinary tract infection (Acute) Vomiting (Acute) Hyponatremia (Acute) Gastroenteritis (Acute) Water intoxication syndrome (Acute) T12 compression fracture (Acute) Orthostasis (Acute) Pyuria (Acute) Encounter for long-term (current) use of NSAIDs (Acute) Encounter for long-term (current) use of high-risk medication (Chronic) Long-term use of high-risk medication (Acute) Elevated erythrocyte sedimentation rate (Acute) Non-pitting edema (Acute) Suspected UTI (Chronic) Hypokalemia (Chronic) Elevated blood pressure reading without diagnosis of hypertension (Chronic) Deformity of foot (Chronic) Vertigo (Chronic) Low blood pressure (Chronic) Rib pain (Chronic) Vitamin D deficiency (Chronic) Charcot's joint of foot (Chronic) Seasonal allergies (Chronic) Open wound of foot except toes with complication (Chronic) Hypomagnesemia (Chronic) Finger deformity (Chronic) Systolic murmur (Chronic) SOB (shortness of breath) (Chronic) Smoker (Chronic) Arthritis (Chronic) Diabetes mellitus (Chronic) Multiple joint pain (Chronic) Bilateral shoulder pain (Chronic) Bilateral hand pain (Chronic) Ulcer of foot due to diabetes mellitus (Chronic) Tobacco abuse (Chronic) CAD (coronary artery disease) (Chronic) Hx MRSA infection (Chronic) Diabetic neuropathy (Chronic) Hx of myocardial infarction (Chronic) Glaucoma (Chronic) Chronic diarrhea (Chronic) Diabetic ulcer of both feet (Chronic) Orthostatic hypotension (Chronic) Medical History Age-related osteoporosis with current pathological fracture, vertebra(e), initial encounter for fracture Anxiety Arthritis Asthma Bilateral hand pain Bilateral shoulder pain CAD (coronary artery disease) Charcot's joint of foot Chronic diarrhea Chronic pain COPD (chronic obstructive pulmonary disease) Deformity of foot Left Depression Diabetes mellitus Diabetic neuropathy Diabetic ulcer of both feet Dyspepsia Elevated blood pressure reading without diagnosis of hypertension Elevated erythrocyte sedimentation rate Encounter for long-term (current) use of high-risk medication Encounter for long-term (current) use of NSAIDs Finger deformity Bilateral fifth finger GERD (gastroesophageal reflux disease) Glaucoma Heart disease History of stroke Hx MRSA infection Hx of myocardial infarction Hypertension Hypokalemia Hypomagnesemia Hyponatremia Hyponatremia syndrome Inflammatory arthritis Long-term use of high-risk medication Low back pain Low blood pressure MRSA (methicillin resistant staph aureus) culture positive L FOOT 08/29 Multiple joint pain Nausea & vomiting Non-pitting edema foot Open wound of foot except toes with complication Orthostatic hypotension Osteoarthritis Pain in left shoulder Pain in right shoulder Pain in right shoulder Pain in thoracic spine Pancreatitis Radiculopathy, lumbar region Radiculopathy, thoracic region Rib pain Seasonal allergies Smoker SOB (shortness of breath) with walking very far Suspected UTI Systolic murmur Tobacco abuse Type 2 diabetes mellitus Ulcer of foot due to diabetes mellitus Urinary tract infection Vertigo Occasional vertigo when shopping and looking around Vitamin D deficiency Vomiting Surgical History History of surgery Shoulder Inj. Bilat w/sed 02/01/20 TESI #1 T11-12 w/sed 02/01/20 TESI #2 T11-12 w/sed 10/31/201908/02 TESI #1 T11-12 w/sed 07/31/201908/02 Shoulder Joint Injection, Naren. w/sed 07/31/201905/03 TESI #2 T11-12 w/sed 05/10/1911/01 TESI #1 T11-12 w/sed 10/19/1808/01 TESI #2 T11-12 w/sed 07/18/1808/01 Shoulder Joint Injection, Bilat w/sed 07/18/1805/02 TESI #1 T11-12 w/sed 04/18/201811/30 Vertebroplasty T12 w/sed 12/08/2017 No pertinent past surgical history Family History Other No pertinent family history Social History Smoking Status: Current every day smoker Exam Narrative Narrative: Narrative: General Limitations: no limitations Head Head: Present normocephalic and other (There is an old abrasion to the forehead from prior fall.) Eye Eye: Present normal appearance, PERRL and EOMI ENT ENT: Present normal exam and normal oropharynx Neck Neck: Present normal inspection; Absent tenderness Respiratory Respiratory: Absent respiratory distress Extremities Extremities: Present other (Tenderness to palpation over the left hip. Sensation intact distally. Foot is pink warm well perfused.) Neurological Neurological: Present alert, oriented X3 and CN II-XII intact; Absent motor sensory deficit Psychiatric Psychiatric: Present normal affect and normal mood Skin Skin: Present warm (WNL) and dry Course Vital Signs Vital signs: Vital Signs Temperature 98.3 F 11/15/20 19:06 Pulse Rate 81 11/15/20 19:06 Respiratory Rate 17 11/15/20 19:06 Blood Pressure 106/74 11/15/20 19:06 Pulse Oximetry (%) 93 11/15/20 19:06 Temperature 98.3 F 11/15/20 19:06 Pulse Rate 74 11/15/20 20:31 Respiratory Rate 17 11/15/20 19:06 Blood Pressure 132/66 11/15/20 20:31 Pulse Oximetry (%) 99 11/15/20 20:31 MDM MDM Narrative Medical decision making narrative: Narrative: X-ray left hip shows fracture. I spoke with the on-call hospitalist and on-call orthopedic surgeon. Orthopedic surgery has seen the patient in the emergency department patient will be admitted to the hospital. Discussed findings with the patient. Questions were answered. She is agreeable with the plan. She given fentanyl for pain. ED POC Tests ED POC Tests: ESVIN - SARS Antigen Negative Discharge Plan Patient/Caregiver Discharge Instructions Pt seen by [employer]/PA only: No Clinical Impression: Closed hip fracture Patient Disposition: Xfer As Inpt ([facility]) Condition: Undetermined Follow up with: Pily Lr MD [Primary Care Provider] - Prescriptions: No Action lidocaine 5 % cream 1 applic TOPICAL .COMPLEX RF: 0 tizanidine 4 mg capsule 4 mg PO .COMPLEX RF: 0 aspirin 325 mg tablet 325 mg PO .COMPLEX RF: 0 potassium chloride 20 MEQ tablet 20 meq PO BIDCC Qty: 10 RF: 0 hydrocodone-acetaminophen 1 TAB tablet 1 - 2 tab PO Q6HP PRN (Reason: Pain) Qty: 20 RF: 0
--- NOTE | 2020-11-15 20:14 | Internal Med History&Physical ---
HPI History of Present Illness Patient information: Note initiated : 11/15/20 at 8:03 pm Service Date, if different from initiated Date: [] Patient: Gina Garber a 65 y/o F admitted on for fall off chair. Chief Complaint: Mechanical fall and Left Hip Fracture History of present illness: Ms. Garber is a 65 year old with multiple medical problems including CAD, status post four-vessel CABG 2012, status post 2 cardiac stent, DM II, HTN , mitral valve repair, non O2 dependnt COPD brought to emergency room after she had a mechanical fall and landed on her left side. Patient asleep the ground and fell. She had severe left hip pain. She did not lose consciousness. She did not hit her head. X-ray hip showed left hip fracture. Patient has history of coronary artery disease and followed at [place] by [facility] Dr. Constance Diallo. Her last appointment with manager hotel was September 2020 and according to the patient everything was fine. No medication change was done. Patient does not know whether she has CHF or not. However she denies orthopnea, PND, chest pain on exertion. She ambulate with a cane. Review of Systems All systems: reviewed and no additional remarkable complaints except as stated Review of systems: Patient has left hip pain. She denies chest pain, shortness of breath, nausea, vomiting, dizziness. She has no orthopnea, PND. She denies exertional chest pain. She has no dizziness. Except as documented all systems reviewed and negative PFSH PFSH All Active Problems Pain in right shoulder (Acute) Pain in thoracic spine (Chronic) Age-related osteoporosis with current pathological fracture, vertebra(e), initial encounter for fracture (Chronic) MRSA (methicillin resistant staph aureus) culture positive (Chronic) History of stroke (Chronic) Anxiety (Chronic) COPD (chronic obstructive pulmonary disease) (Chronic) Asthma (Chronic) GERD (gastroesophageal reflux disease) (Chronic) Type 2 diabetes mellitus (Chronic) Osteoarthritis (Chronic) Depression (Chronic) Heart disease (Chronic) Pain in left shoulder (Chronic) Chronic pain (Chronic) Low back pain (Chronic) Radiculopathy, thoracic region (Chronic) Radiculopathy, lumbar region (Chronic) Pain in right shoulder (Chronic) Hyponatremia syndrome (Acute) Nausea & vomiting (Acute) Dyspepsia (Acute) Pancreatitis (Acute) Hypertension (Acute) Hyponatremia (Acute) Urinary tract infection (Acute) Vomiting (Acute) Hyponatremia (Acute) Gastroenteritis (Acute) Water intoxication syndrome (Acute) T12 compression fracture (Acute) Orthostasis (Acute) Pyuria (Acute) Encounter for long-term (current) use of NSAIDs (Acute) Encounter for long-term (current) use of high-risk medication (Chronic) Long-term use of high-risk medication (Acute) Elevated erythrocyte sedimentation rate (Acute) Non-pitting edema (Acute) Suspected UTI (Chronic) Hypokalemia (Chronic) Elevated blood pressure reading without diagnosis of hypertension (Chronic) Deformity of foot (Chronic) Vertigo (Chronic) Low blood pressure (Chronic) Rib pain (Chronic) Vitamin D deficiency (Chronic) Charcot's joint of foot (Chronic) Seasonal allergies (Chronic) Open wound of foot except toes with complication (Chronic) Hypomagnesemia (Chronic) Finger deformity (Chronic) Systolic murmur (Chronic) SOB (shortness of breath) (Chronic) Smoker (Chronic) Arthritis (Chronic) Diabetes mellitus (Chronic) Multiple joint pain (Chronic) Bilateral shoulder pain (Chronic) Bilateral hand pain (Chronic) Ulcer of foot due to diabetes mellitus (Chronic) Tobacco abuse (Chronic) CAD (coronary artery disease) (Chronic) Hx MRSA infection (Chronic) Diabetic neuropathy (Chronic) Hx of myocardial infarction (Chronic) Glaucoma (Chronic) Chronic diarrhea (Chronic) Diabetic ulcer of both feet (Chronic) Orthostatic hypotension (Chronic) Medical History Age-related osteoporosis with current pathological fracture, vertebra(e), initial encounter for fracture Anxiety Arthritis Asthma Bilateral hand pain Bilateral shoulder pain CAD (coronary artery disease) Charcot's joint of foot Chronic diarrhea Chronic pain COPD (chronic obstructive pulmonary disease) Deformity of foot Left Depression Diabetes mellitus Diabetic neuropathy Diabetic ulcer of both feet Dyspepsia Elevated blood pressure reading without diagnosis of hypertension Elevated erythrocyte sedimentation rate Encounter for long-term (current) use of high-risk medication Encounter for long-term (current) use of NSAIDs Finger deformity Bilateral fifth finger GERD (gastroesophageal reflux disease) Glaucoma Heart disease History of stroke Hx MRSA infection Hx of myocardial infarction Hypertension Hypokalemia Hypomagnesemia Hyponatremia Hyponatremia syndrome Inflammatory arthritis Long-term use of high-risk medication Low back pain Low blood pressure MRSA (methicillin resistant staph aureus) culture positive L FOOT 08/29 Multiple joint pain Nausea & vomiting Non-pitting edema foot Open wound of foot except toes with complication Orthostatic hypotension Osteoarthritis Pain in left shoulder Pain in right shoulder Pain in right shoulder Pain in thoracic spine Pancreatitis Radiculopathy, lumbar region Radiculopathy, thoracic region Rib pain Seasonal allergies Smoker SOB (shortness of breath) with walking very far Suspected UTI Systolic murmur Tobacco abuse Type 2 diabetes mellitus Ulcer of foot due to diabetes mellitus Urinary tract infection Vertigo Occasional vertigo when shopping and looking around Vitamin D deficiency Vomiting Surgical History History of surgery Shoulder Inj. Bilat w/sed 02/01/20 TESI #1 T11-12 w/sed 02/01/20 TESI #2 T11-12 w/sed 10/31/201908/02 TESI #1 T11-12 w/sed 07/31/201908/02 Shoulder Joint Injection, Naren. w/sed 07/31/201905/03 TESI #2 T11-12 w/sed 05/10/1911/01 TESI #1 T11-12 w/sed 10/19/1808/01 TESI #2 T11-12 w/sed 07/18/1808/01 Shoulder Joint Injection, Bilat w/sed 07/18/1805/02 TESI #1 T11-12 w/sed 04/18/201811/30 Vertebroplasty T12 w/sed 12/08/2017 No pertinent past surgical history Family History Other No pertinent family history MEDS/ALLERGIES Home Medications and Allergies Home Medications Medication Instructions Recorded Confirmed Type hydrocodone-acetaminophen 1 - 2 tab PO Q6HP PRN #20 tab 12/16/17 10/20/20 Rx potassium chloride 20 meq PO BIDCC #10 tab 12/16/17 10/20/20 Rx aspirin 325 mg tablet 325 mg PO .COMPLEX 08/20/19 10/20/20 History lidocaine 5 % topical cream 1 applic TOPICAL .COMPLEX 08/20/19 10/20/20 History tizanidine 4 mg capsule 4 mg PO .COMPLEX 08/20/19 10/20/20 History Allergies Allergy/AdvReac Type Severity Reaction Status Date / Time venom-honey bee Allergy Severe Anaphylaxis Verified 11/15/20 19:54 [bee venom (honey bee)] capsaicin AdvReac Mild Hives Verified 11/15/20 19:54 codeine AdvReac Mild Nausea Verified 11/15/20 19:54 minocycline [Minocycline] AdvReac Mild Nausea Verified 11/15/20 19:54 oxycodone [Oxycodone] AdvReac Mild Unknown Verified 11/15/20 19:54 EXAM Constitutional Vitals: Temp Pulse Resp BP Pulse Ox 98.3 F 74 17 113/61 90 11/15/20 19:06 11/15/20 19:44 11/15/20 19:06 11/15/20 19:44 11/15/20 19:44 General appearance: average body habitus, cooperative and no acute distress Head Head exam: Present atraumatic, normal inspection and normocephalic Eye Eye exam: Present EOMI, normal appearance and PERRL Neck Neck exam: Present full ROM and normal inspection Respiratory Respiratory exam: Present normal respiratory exam and CTAB Cardiovascular Cardiovascular exam: Present normal rate and rhythm (Thoracotomy scar from CABG. No JVD. Trace of ankle edema), RRR, +S1 and +S2; Absent diastolic murmur, gallop, rubs, +S3, +S4 and systolic murmur GI/Abdominal GI/Abdominal exam: Present normal bowel sounds and soft; Absent hernia, mass, rebound and tenderness Extremities Exam Extremities exam: Present normal capillary refill, normal inspection and neurovascular intact; Absent calf tenderness, full ROM (Left hip decreased range of motion due to pain. Left lower extremity internally rotated and abductor. Left lower extremity has atrophy.) and joint swelling Neurological Exam Neurological exam: Present alert, CN II-XII intact, oriented X3 and reflexes normal Psychiatric Psychiatric exam: Present normal affect and normal mood Skin Skin exam: Present dry, normal color and warm DATA Impressions Impressions: X-ray hip showed left hip fracture. A/P Narrative A/P Narrative: 65 years old female with multiple chronic medical problem admitted after a mechanical fall and left hip fracture: #Acute traumatic left hip fracture -Bedrest, pain control, -Orthopedic surgery consult for ORIF. N.p.o. after midnight, IV fluid #Preop risk stratification: - Revised cardiac risk index is 3 points which is Class IV Risk with 15.0 % 30- day risk of , [place], or cardiac arrest -No signs or symptoms of unstable angina, decompensated heart failure, acute a stroke. Patient has no orthopnea, PND, exertional chest pain - Check EKG, CxR now. Check Echo to see the EF and Valvular status. Clinically pt has no S&S of CHF. - Resume home BB, Statin and ASA. - If EKG, CxR, Troponin and BNP. Check Echo are grossly normal I recommend to proceed with surgery with no further testing. Patient should be on telemetry after procedure. -I have discussed with patient and her family member in detail with the risk and benefit of surgery. They are aware of the risk #Coronary artery disease a status post CABG 2012 and multiple stent -Resume home aspirin, beta-alfredo, statin if she is on. If not I will start her on. -Telemetry monitoring #Non oxygen dependent COPD. No exacerbation -Bronchodilator, IS # DM II - Hold oral medication and start sliding scale insulin #History of mitral valve repair. Check echo as above. # Hypokalemia. 3.2 - Replace and follow BMP DVT PPX: Lovenox 40mg daily for now then ASA 81mg bid. Code Status : Full code Disposition: Inpatient Plan of care discussed with patient and family member as well as RN Time Spent With Patient Time: Total time spent is greater than 50% in coordination of care (as documented) at patient's floor/unit and/or counseling patient:
[2020-11-15] MEDS ORDERED: ATORVASTATIN 40 MG TABLET PO SCH (20:25)
[2020-11-15] MEDS ORDERED: METHOCARBAMOL 1,000 MG/10 ML VIAL IV ONE (20:27)
[2020-11-15] MEDS ORDERED: fentaNYL 100 MCG/2 ML VIAL IV ONE (20:33)
--- NOTE | 2020-11-15 20:52 | EKG ---
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 Measurements Intervals [place] Rate: 75 P: 28 DE: 170 QRS: 8 QRSD: 86 T: 129 QT: 435 QTc: 486 Interpretive Statements Sinus rhythm Abnormal R-wave progression, early transition Nonspecific T abnormalities, lateral leads Borderline prolonged QT interval NO PRIOR TRACING FOR COMPARISON ABNORMAL ECG Electronically Signed On 11-15-2020 20:51:41 PDT by Dennis Valenzuela M.D. /[facility] [place]//[id number]
[2020-11-15] MEDS ORDERED: METOPROLOL TARTRATE 25 MG TABLET PO SCH (21:00)
--- NOTE | 2020-11-15 22:23 | History and Physical Report ---
DATE OF ADMISSION: 11/15/2020 ADMISSION NOTE CONSULTATION IDENTIFICATION: This is a 65-year-old female. CHIEF COMPLAINT: Left hip fracture. HISTORY: Gina sustained a nonsyncopal fall today. She had immediate pain and was unable to bear weight. She presented to the hospital here at [facility] where she was evaluated by Dr. Oro and radiographs demonstrated an isolated hip fracture. She does have a complex past medical history and consultation by an hospitalist has been involved. We are now called for further evaluation and management of this hip. PAST MEDICAL HISTORY: Her past medical history is really quite complicated. Anxiety, arthritis, asthma, coronary artery disease, COPD, depression, diabetes, diabetic polyneuropathy, history of diabetic foot ulcers, reflux disease, history of previous stroke, hypertension. PAST SURGICAL HISTORY: She has had a cholecystectomy but otherwise noncontributory to this present problem. MEDICATIONS: I have an incomplete list, but it looks like she takes, 1. Hydrocodone. 2. Tizanidine. 3. Aspirin. Please see medical record for further description. ALLERGIES: HER ALLERGIES ARE TO CODEINE, MONOCYCLINE, OXYCODONE, AND CAPSAICIN. PHYSICAL EXAMINATION: GENERAL: Shows she is awake and alert. She is resting comfortably. Her left hip is carefully positioned. HEAD: Normocephalic, atraumatic. EYES: PERRLA. Conjunctivae clear. ENT: Within normal limits. NECK: Supple without pain on range of motion. HEART: Regular. LUNGS: Clear. ABDOMEN: Benign. EXTREMITIES: Left lower extremity shows rotation and shortening. She has pain with any motion. NEUROLOGIC: She seems to be grossly neurovascularly intact but does have multiple healed wound from diabetic foot ulcer and has some foot deformities. RADIOGRAPHS: Demonstrated femoral neck fracture. Impression: Left hip femoral neck fracture, displaced. This is subcapital transcervical. IMPRESSION: Left hip fracture and need to have operative treatment. PLAN: We will plan to proceed with a hemiarthroplasty. This has been discussed with the hospitalist, with the patient and the family. Surgical risks, complications, and limitations have been discussed. She understands these well and wishes to proceed. GDD:riaz Job ID: [id number] Doc ID: [id number] Kt Siegel MD
[2020-11-15] MEDS ORDERED: DEXTROSE 31 GM ORAL.SUSP PO PRN (23:08)
[2020-11-15] MEDS ORDERED: ALBUTEROL SULFATE 2.5 MG/3 ML NEBULIZER NEB PRN (23:08)
[2020-11-15] MEDS ORDERED: ONDANSETRON 4 MG/2 ML VIAL IV PRN (23:08)
[2020-11-15] MEDS ORDERED: ENOXAPARIN 40 MG/0.4 ML SYRINGE SQ SCH (23:08)
[2020-11-15] MEDS ORDERED: ONDANSETRON 4 MG ODT TABLET SL PRN (23:08)
[2020-11-15] MEDS ORDERED: SENNOSIDES 1 TABLET PO PRN (23:08)
[2020-11-15] MEDS ORDERED: DEXTROSE 50% 50 ML VIAL IV PRN (23:08)
[2020-11-15] MEDS ORDERED: ZOLPIDEM 5 MG TABLET PO PRN (23:08)
[2020-11-15] MEDS ORDERED: MAGNESIUM HYDROXIDE 30 ML ORAL.SUSP PO PRN (23:08)
[2020-11-15] MEDS ORDERED: ASPIRIN 81 MG TAB.CHEW CHEWED SCH (23:08)
[2020-11-15] MEDS ORDERED: oxyCODONE HCL 5 MG TABLET PO PRN (23:08)
[2020-11-15] MEDS ORDERED: ACETAMINOPHEN 325 MG TABLET PO PRN (23:08)
[2020-11-15] MEDS: 0.9 % SODIUM CHLORIDE 1,000 ML IV SCH (23:36)
[2020-11-15] MEDS ORDERED: HYDROmorphone 0.5 MG/0.5 ML SYRINGE ONE (23:59)
[2020-11-15] MEDS ORDERED: oxyCODONE HCL 5 MG TABLET PO ONE (23:59)
[2020-11-15] MEDS ORDERED: ZOLPIDEM 5 MG TABLET ONE (23:59)
[2020-11-16] MEDS ORDERED: NICOTINE 21 MG PATCH TOPICAL ONE (00:34)
[2020-11-16] MEDS ORDERED: NICOTINE 21 MG PATCH ONE (00:40)
[2020-11-16] MEDS: DOCUSATE SODIUM 100 MG CAPSULE PO SCH ×3 (00:49→21:38)
[2020-11-16] MEDS: INSULIN LISPRO 1 UNIT/0.01 ML UNIT SQ SCH ×5 (01:02→21:45)
[2020-11-16] MEDS ORDERED: ENOXAPARIN 40 MG/0.4 ML SYRINGE ONE (01:07)
[2020-11-16] MEDS ORDERED: ASPIRIN 325 MG ENTERIC COATED TABLET PO ONE (01:07)
[2020-11-16] MEDS ORDERED: ASPIRIN 81 MG TAB.CHEW ONE (01:10)
[2020-11-16] MEDS ORDERED: HYDROmorphone 0.5 MG/0.5 ML SYRINGE ONE (03:29)
[2020-11-16] MEDS ORDERED: oxyCODONE HCL 5 MG TABLET PO ONE (03:30)
[2020-11-16] MEDS: 0.9 % SODIUM CHLORIDE 10 ML SYRINGE IV SCH ×6 (03:31→22:34)
[2020-11-16] MEDS: HYDROmorphone 0.5 MG/0.5 ML SYRINGE IV PRN ×2 (03:32→15:55)
--- NOTE | 2020-11-16 05:28 | XRay Report ---
CLINICAL INFORMATION: pain s/p fall COMPARISON: None. FINDINGS: Acute basicervical fracture of the left hip with mild displacement appreciated. Both hips are normal in width and alignment arthritic change. SI joints show only minimal degeneration. Soft tissue swelling over the fracture site. IMPRESSION: Acute mildly angulated and minimally displaced basicervical fracture - left hip Interpreted and Authenticated by: Cam Quezada 11/16/20
[2020-11-16 05:36] LABS: Appearance,Urine CLEAR (Clear); Bilirubin,Urine Negative (Negative); Color,Urine YELLOW; Culture Indicated,Urine No; Glucose,Urine (UA) Negative (Negative); Ketones,Urine Negative (Negative); Leukocyte Esterase,Urine Negative /ug (Negative); Nitrate,Urine Negative (Negative); Protein,Urine 30 mg/dL (Negative); Specific Gravity,Urine 1.014 (1.000-1.035); Urine Amorphous Crystals FEW /hpf; Urine Blood Negative (Negative); Urine Hyaline Cast 4 /lph (0-2); Urine RBC < 1 /hpf (0-3); Urine Squamous Epithelial Cell 0 /hpf (0-4); Urine Transitional Epi Cells < 1 /hpf (0-2); Urine WBC 1 /hpf (0-4); Urobilinogen,Urine Negative
[2020-11-16 06:48] LABS: Hemoglobin 9.9 g/dL (12.0-15.0); Mean Cell Volume 87.1 fL (80.0-100.0); Mean Corpuscular HGB Conc 31.9 g/dL (31.0-36.0); Mean Platelet Volume 8.8 fL (7.4-10.4); Platelet Count 182 K/mcL (140-440); RBC 3.56 M/mcL (4.00-5.20); Red Cell Distribution Width 14.6 % (11.5-14.5); WBC 6.8 K/mcL (4.5-11.0)
[2020-11-16] MEDS ORDERED: IPRATROPIUM/ALBUTEROL 3 ML AMPUL.NEB NEB PRN ×2 (07:00→08:44)
[2020-11-16] MEDS ORDERED: SCOPOLAMINE 1 PATCH PATCH TOPICAL PRN (07:00)
[2020-11-16 07:01] LABS: Prothrombin Time 13.5 sec (11.9-14.5)
[2020-11-16 07:18] LABS: Blood Urea Nitrogen 17 mg/dL (8-23); Calcium 8.2 mg/dL (8.6-10.4); Carbon Dioxide 23 mmol/L (22-30); Chloride 97 mmol/L (96-108); Glomerular Filtration Rate 29; Glucose 106 mg/dL (70-105)
[2020-11-16] MEDS ORDERED: GENTAMICIN SULFATE 800 MG/20 ML VIAL IR ONE (07:48)
[2020-11-16] MEDS ORDERED: MIDAZOLAM 2 MG/2 ML VIAL ONE (07:58)
[2020-11-16] MEDS ORDERED: TRANEXAMIC ACID 1,000 MG/10 ML VIAL IV ONE (07:58)
[2020-11-16] MEDS ORDERED: ONDANSETRON 4 MG/2 ML VIAL ONE (07:58)
[2020-11-16] MEDS ORDERED: KETAMINE 100 MG/ML ML ONE (07:58)
[2020-11-16] MEDS ORDERED: fentaNYL 100 MCG/2 ML VIAL IV ONE (07:58)
[2020-11-16] MEDS ORDERED: DEXAMETHASONE 10 MG/ML VIAL ONE (07:58)
[2020-11-16] MEDS ORDERED: DOXAPRAM HCL 20 MG/ML IV ONE (07:58)
[2020-11-16] MEDS ORDERED: METOCLOPRAMIDE 10 MG/2 ML VIAL ONE (07:58)
[2020-11-16] MEDS ORDERED: GLYCOPYRROLATE 0.2 MG/ML VIAL IV ONE (07:58)
[2020-11-16] MEDS ORDERED: LIDOCAINE HCL/PF 100 MG/5 ML SYRINGE IV ONE (07:58)
[2020-11-16 08:31] LABS: Anisocytosis 1+ (None Seen); Band Neutrophils % 3 % (0-10); Eosinophils % (Manual) 1 % (0-7); Hypochromasia 1+ (None Seen); Lymphocytes % 19 % (15-49); Monocytes % (Manual) 3 % (1-12); Platelet Estimate NORMAL (Normal); Polychromasia FEW (None Seen); RBC Morphology ABNORMAL (Normal); Reactive Lymphocytes 1 % (0-2); Segmented Neutrophils % 73 % (38-78)
[2020-11-16] MEDS ORDERED: PROMETHAZINE 25 MG/ML VIAL IV PRN (08:44)
[2020-11-16] MEDS ORDERED: ONDANSETRON 4 MG/2 ML VIAL IV PRN (08:44)
[2020-11-16] MEDS ORDERED: MEPERIDINE 50 MG/ML VIAL IM PRN (08:44)
[2020-11-16] MEDS ORDERED: MEPERIDINE 25 MG/ML VIAL IV PRN (08:44)
[2020-11-16] MEDS ORDERED: PROMETHAZINE 25 MG/ML VIAL IM PRN (08:44)
[2020-11-16] MEDS ORDERED: ePHEDrine 50 MG/ML AMPUL IV PRN (08:44)
[2020-11-16] MEDS ORDERED: BENZOCAINE/MENTHOL 1 LOZENGE PO PRN ×2 (08:44→09:11)
[2020-11-16] MEDS ORDERED: ACETAMINOPHEN 1,000 MG/100 ML BAG IV ONE (08:44)
[2020-11-16] MEDS ORDERED: LACTATED RINGERS 1,000 ML IV SCH (08:45)
[2020-11-16] MEDS ORDERED: ASPIRIN 81 MG TAB.CHEW CHEWED SCH (09:00)
[2020-11-16] MEDS ORDERED: BISACODYL 10 MG SUPP.RECT PR PRN (09:11)
[2020-11-16] MEDS ORDERED: POLYETHYLENE GLYCOL 3350 17 GM PACKET PO PRN (09:11)
[2020-11-16] MEDS ORDERED: MAGNESIUM HYDROXIDE 30 ML ORAL.SUSP PO PRN (09:11)
[2020-11-16] MEDS ORDERED: FLEETS ADULT ENEMA PR PRN (09:11)
--- NOTE | 2020-11-16 09:11 | Brief Operative Note ---
Brief Operative Note Date of procedure: 11/16/20 Pre-op diagnosis: Left hip fracture Post-op diagnosis: same Procedure: hemiarthroplasty Grafts/Implants: Yes Anesthesia: GETA Findings: fracture Complications: none Surgeon: Kt Siegel Condition: stable Disposition: PACU
[2020-11-16] MEDS: fentaNYL 100 MCG/2 ML VIAL IV PRN ×2 (09:34→09:39)
[2020-11-16] MEDS: 0.9 % SODIUM CHLORIDE 1,000 ML IV SCH ×2 (11:04→15:19)
[2020-11-16] MEDS: METOPROLOL TARTRATE 25 MG TABLET PO SCH ×2 (12:44→21:39)
--- NOTE | 2020-11-16 14:37 | XRay Report ---
CLINICAL INFORMATION: Post-surgical COMPARISON: None. FINDINGS: Left hip hemiarthroplasty is anatomically aligned. No osseous abnormalities. Both SI and right hip joints normal. Soft tissue swelling over the surgical site as expected. IMPRESSION: Left hip hemiarthroplasty - anatomically aligned Interpreted and Authenticated by: Cam Quezada 11/16/20
--- NOTE | 2020-11-16 15:05 | Internal Med Progress Note ---
SUBJECTIVE Subjective Patient information: Note initiated : 11/16/20 at 3:04 pm Service Date, if different from initiated Date: Patient: Gina Garber 65 y/o F admitted on 11/15/20 for fall off chair. Chief Complaint: Mechanical fall with hip fracture Constitutional Vitals: Vital Signs Temp Pulse Resp BP Pulse Ox 96.9 F L 86 12 95/52 97 11/16/20 12:00 11/16/20 12:00 11/16/20 12:00 11/16/20 12:00 11/16/20 12:00 Period Temp Pulse Resp BP Sys/Macias Pulse Ox Last 24 Hr 96.9 F-99.6 F 71-96 10-18 84-140/48-89 90-100 Intake and Output 11/16/20 11/16/20 11/16/20 05:59 13:59 21:59 Intake Total 480 2463 Output Total 300 40 Balance 180 2423 Weight 70.896 kg Intake & Output: Intake & Output 11/16/20 11/16/20 11/16/20 05:59 13:59 21:59 Intake Total 480 2463 Output Total 300 40 Balance 180 2423 Weight 70.896 kg Intake: Nourishment/Supplement quantity 240 (ml) IV 1063 Sodium Chloride 0.9% 1,000 ml @ 963 84 mls/hr IV .[id number] [facility] Rx#: [id number] Oral 240 IV - Manual Only 1400 Output: Void Amount 300 Estimated Blood Loss 40 Other: Nourishment/Supplement name apple juice Urine Appearance Clear Urine Color Dark Yellow # Bowel Movements 0 Additional findings Additional findings: General: Awake alert oriented x3. No apparent distress HEENT: PERRLA, moist mucous membrane. Anicteric sclera Lungs: Clear to auscultation bilaterally. No crackles rhonchi or rales. Cardiovascular: Thoracotomy scar from CABG. Regular rate and rhythm. S1 + S2, no murmur gallop rub. No peripheral edema. No JVD GI: Abdomen soft, nontender, positive bowel sounds. No hepatosplenomegaly. No rebound tenderness. No CVA tenderness SUPPLY ASSISTANT: Awake alert oriented x3. Cranial nerves II through XII 12 grossly intact. Extremities: Status post left hemiarthroplasty with dry dressing. Left leg mildly atrophic Psychiatric: Normal mood and affect OBJ DATA Labs CBC & Chem 7: 11/16/20 05:39 11/16/20 05:39 Labs: Abnormal Lab Results 11/16/20 11/16/20 11/15/20 05:39 05:39 21:50 RBC 3.56 L Hgb 9.9 L Hct 31.0 L RDW 14.6 H RBC Morphology Abnormal A Polychromasia Few A Hypochromasia 1+ A Anisocytosis 1+ A Sodium 129 L Creatinine 1.8 H Glucose 106 H Calcium 8.2 L NT-Pro-B Natriuret Pep 322.2 H Urine Protein Amorphous Crystals Hyaline Casts 11/15/20 04:07 RBC Hgb Hct RDW RBC Morphology Polychromasia Hypochromasia Anisocytosis Sodium Creatinine Glucose Calcium NT-Pro-B Natriuret Pep Urine Protein 30 A Amorphous Crystals Few A Hyaline Casts 4 H Meds: Medications Acetaminophen (Acetaminophen 325 Mg Tablet) 650 mg PO Q6HP PRN; Protocol PRN Reason: Per Pain Protocol/Fever > 101 Hydrocodone Bitart/Acetaminophen (Hydrocodone/Apap 7.5/325mg Tablet) 0 tab PO Q4HP PRN; Protocol PRN Reason: Per Pain Protocol Albuterol Sulfate (Albuterol Sulfate 2.5 Mg/3 Ml Nebulizer) 2.5 mg NEB Q2HP PRN PRN Reason: Shortness Of Breath Aspirin (Aspirin 81 Mg Tab.Chew) 81 mg PO BID BRITTANIE Atorvastatin Calcium (Atorvastatin 40 Mg Tablet) 40 mg PO DAILY [facility] Bisacodyl (Bisacodyl 10 Mg Supp.Rect) 10 mg NC Q2-3DAYS PRN PRN Reason: Constipation Cefazolin Sodium (Cefazolin 1 Gm Vial) 2 gm IV Q8H [facility] Stop: 11/17/20 00:01 Dextrose (Dextrose 50% 50 Ml Vial) 0 ml IV UD PRN PRN Reason: Hypoglycemia Diagnostic Test (Pha) (Accu-Chek 1 Each Strip) 1 each FS ACHS [facility] Last Admin: 11/16/20 11:59 Dose: 1 each Documented by: Docusate Sodium (Docusate Sodium 100 Mg Capsule) 100 mg PO BID [facility] Glucose (Dextrose 31 Gm Oral.Susp) 15 gm PO PRN PRN PRN Reason: Hypoglycemia Hydromorphone HCl (Hydromorphone 0.5 Mg/0.5 Ml Syringe) 0.5 mg IV Q2HP PRN; Protocol PRN Reason: Per Pain Protocol Last Admin: 11/16/20 03:32 Dose: 0.5 mg Documented by: Sodium Chloride (Sodium Chloride 0.9%) 1,000 mls @ 84 mls/hr IV .[id number] [facility] Last Admin: 11/16/20 11:04 Dose: 84 mls/hr Documented by: Insulin Human Lispro (Insulin Lispro 1 Unit/0.01 Ml Unit) 0 unit SQ ACHS [facility]; Protocol Last Admin: 11/16/20 12:03 Dose: 8 units Documented by: Magnesium Hydroxide (Magnesium Hydroxide 30 Ml Oral.Susp) 30 ml PO BIDP PRN PRN Reason: Constipation Metoprolol Tartrate (Metoprolol Tartrate 25 Mg Tablet) 12.5 mg PO BID [facility] Last Admin: 11/16/20 12:44 Dose: Not Given Documented by: Nicotine (Nicotine 14 Mg Patch) 14 mg TOPICAL DAILY@1000 BRITTANIE Ondansetron HCl (Ondansetron 4 Mg/2 Ml Vial) 4 mg IV Q6HP PRN PRN Reason: Nausea And Vomiting Ondansetron HCl (Ondansetron 4 Mg Odt Tablet) 4 mg SL Q6HP PRN PRN Reason: Nausea And Vomiting Polyethylene Glycol (Polyethylene Glycol 3350 17 Gm Packet) 17 gm PO DAILYP PRN PRN Reason: Constipation Senna (Sennosides 1 Tablet) 2 tab PO HS [facility] Sodium Biphosphate/Sodium Phosphate (Fleets Adult Enema) 1 dose NC Q3-4DAYS PRN PRN Reason: Constipation Sodium Chloride (0.9 % Sodium Chloride 10 Ml Syringe) 10 ml IV Q8 [facility] Last Admin: 11/16/20 14:05 Dose: Not Given Documented by: Sodium Chloride (0.9 % Sodium Chloride 10 Ml Syringe) 10 ml IV Q8 [facility] Last Admin: 11/16/20 14:05 Dose: Not Given Documented by: Throat Lozenges (Benzocaine/Menthol 1 Lozenge) 1 lozenge PO PRN PRN PRN Reason: Sore Throat Zolpidem Tartrate (Zolpidem 5 Mg Tablet) 5 mg PO HSP PRN PRN Reason: Insomnia Last Admin: 11/16/20 01:53 Dose: 5 mg Documented by: A/P Narrative A/P Narrative: 65 years old female with multiple chronic medical problem a dmitted after a mechanical fall and left hip fracture: #Acute traumatic left hip fracture -Bedrest, pain control, -Status post left hemiarthroplasty 11/16/2010 -Continue routine postop care. Per orthopedic surgeon patient can be weightbearing as tolerated #LUIS DANIEL versus CKD III -Patient is a poor historian and does not recall kidney disease in the past -Continue gentle IV fluid. "Itching. Follow renal panel. -If creatinine does not improve we will check renal ultrasound #Coronary artery disease a status post CABG 2012 and multiple stent. No ACS -Resume home aspirin. Started low-dose beta-alfredo, statin -Echo completed and preliminary report EF of 55%. Follow official report -Continue telemetry monitoring #Non oxygen dependent COPD. No exacerbation -Bronchodilator, IS # DM II - Hold oral medication and continue sliding scale insulin #History of mitral valve repair. - Preliminary report of echocardiogram normal EF with no major valvular disorder. Will follow official report DVT PPX: Lovenox 40mg daily for now then ASA 81mg bid. Code Status : Full code Disposition: Inpatient Plan of care discussed with patient and family member as well as RN Time Spent With Patient Time: Total time spent is greater than 50% in coordination of care (as documented) at patient's floor/unit and/or counseling patient: QUALITY VTE Deep Vein Thrombosis/Pulmonary Embolism Present on Admission: No
[2020-11-16] MEDS: ceFAZolin 1 GM VIAL IV SCH (15:16)
[2020-11-16] MEDS: ATORVASTATIN 40 MG TABLET PO SCH (15:18)
[2020-11-16] MEDS: HYDROCODONE/APAP 7.5/325MG TABLET PO PRN ×2 (17:09→21:38)
[2020-11-16] MEDS: ASPIRIN 81 MG TAB.CHEW PO SCH (21:39)
[2020-11-16] MEDS: SENNOSIDES 1 TABLET PO SCH (21:39)
[2020-11-17] MEDS: 0.9 % SODIUM CHLORIDE 1,000 ML IV SCH ×3 (00:47→05:36)
[2020-11-17] MEDS: ceFAZolin 1 GM VIAL IV SCH (00:53)
[2020-11-17] MEDS: HYDROCODONE/APAP 7.5/325MG TABLET PO PRN ×4 (03:56→19:45)
[2020-11-17] MEDS: 0.9 % SODIUM CHLORIDE 10 ML SYRINGE IV SCH ×6 (05:36→21:30)
[2020-11-17 06:27] LABS: Basophils # (Auto) 0.01 K/mcL (0.00-0.20); Basophils % (Auto) 0.1 % (0.0-2.0); Eosinophils # (Auto) 0.02 K/mcL (0.00-0.70); Eosinophils % (Auto) 0.2 % (0.0-7.0); Hematocrit 27.5 % (36.0-48.0); Hemoglobin 8.6 g/dL (12.0-15.0); Lymphocytes # (Auto) 0.97 K/mcL (1.50-4.80); Lymphocytes % (Auto) 10.5 % (15.0-49.0); Mean Cell Volume 88.4 fL (80.0-100.0); Mean Corpuscular HGB Conc 31.3 g/dL (31.0-36.0); Mean Platelet Volume 8.5 fL (7.4-10.4); Monocytes # (Auto) 0.24 K/mcL (0.10-0.90); Monocytes % (Auto) 2.6 % (1.0-12.0); Neutrophils % (Auto) 86.6 % (38.0-78.0); Platelet Count 157 K/mcL (140-440); RBC 3.11 M/mcL (4.00-5.20); Red Cell Distribution Width 14.6 % (11.5-14.5); WBC 9.2 K/mcL (4.5-11.0)
[2020-11-17 06:54] LABS: INR 1.1 (0.9-1.1); Prothrombin Time 14.3 sec (11.9-14.5)
[2020-11-17 07:07] LABS: ALT/SGPT 8 U/L (<40); AST/SGOT 26 U/L (<32); Albumin 2.9 gm/dL (3.2-5.2); Albumin/Globulin Ratio 1.1 (1.0-2.3); Alkaline Phosphatase 120 U/L (39-117); Bilirubin,Total 0.2 mg/dL (0.1-1.0); Blood Urea Nitrogen 15 mg/dL (8-23); Calcium 7.8 mg/dL (8.6-10.4); Carbon Dioxide 22 mmol/L (22-30); Chloride 100 mmol/L (96-108); Globulin 2.6 gm/dL (2.2-3.7); Glomerular Filtration Rate 53; Glucose 73 mg/dL (70-105)
[2020-11-17] MEDS: INSULIN LISPRO 1 UNIT/0.01 ML UNIT SQ SCH ×4 (07:22→20:27)
--- NOTE | 2020-11-17 07:38 | Internal Med Progress Note ---
SUBJECTIVE Subjective Patient information: Note initiated : 11/17/20 at 7:35 am Service Date, if different from initiated Date: Patient: Gina Garber 65 y/o F admitted on 11/15/20 for fall off chair. Chief Complaint: Fall Hip fracture Principal diagnosis: Fall, Hip Fx Interval history: Patient is feeling better. Pain is better controlled. No nausea vomiting chest pain shortness of breath. No events on telemetry Constitutional Vitals: Vital Signs Temp Pulse Resp BP Pulse Ox 98.9 F 89 20 110/60 95 11/17/20 04:00 11/17/20 04:00 11/17/20 04:00 11/17/20 04:00 11/17/20 04:19 Period Temp Pulse Resp BP Sys/Macias Pulse Ox Last 24 Hr 96.9 F-99.6 F 70-96 10-20 84-140/48-89 82-100 Intake and Output 11/16/20 11/17/20 11/17/20 21:59 05:59 13:59 Intake Total 800 1200 Output Total 500 275 Balance 300 925 Weight 78.925 kg Intake & Output: Intake & Output 11/16/20 11/17/20 11/17/20 21:59 05:59 13:59 Intake Total 800 1200 Output Total 500 275 Balance 300 925 Weight 78.925 kg Intake: IV 1000 Sodium Chloride 0.9% 1,000 ml @ 1000 84 mls/hr IV .[id number] [facility] Rx#: [id number] Oral 800 200 Output: Urine Catheter Amount 500 Void Amount 275 Other: Urine Appearance Clear Clear Urine Color Dark Yellow Bright Yellow # Bowel Movements 0 Additional findings Additional findings: General: Awake alert oriented x3. No apparent distress HEENT: PERRLA, moist mucous membrane. Anicteric sclera Lungs: Clear to auscultation bilaterally. No crackles rhonchi or rales. Cardiovascular: Thoracotomy scar from CABG. Regular rate and rhythm. S1 + S2, no murmur gallop rub. No peripheral edema. No JVD GI: Abdomen soft, nontender, positive bowel sounds. No hepatosplenomegaly. No rebound tenderness. No CVA tenderness [employer]IVE: Awake alert oriented x3. Cranial nerves II through XII 12 grossly intact. Extremities: Status post left hemiarthroplasty with dry dressing. Left leg mildly atrophic Psychiatric: Normal mood and affect OBJ DATA Labs CBC & Chem 7: 11/17/20 05:20 11/17/20 05:20 Labs: Abnormal Lab Results 11/17/20 11/17/20 11/16/20 05:20 05:20 05:39 RBC 3.11 L Hgb 8.6 L Hct 27.5 L RDW 14.6 H Neut % (Auto) 86.6 H Lymph % (Auto) 10.5 L Lymph # (Auto) 0.97 L RBC Morphology Polychromasia Hypochromasia Anisocytosis Sodium 129 L 129 L Anion Gap 7.0 L Creatinine 1.8 H Glucose 106 H Calcium 7.8 L 8.2 L Alkaline Phosphatase 120 H NT-Pro-B Natriuret Pep Total Protein 5.5 L Albumin 2.9 L Urine Protein Amorphous Crystals Hyaline Casts 11/16/20 11/15/20 11/15/20 05:39 21:50 04:07 RBC 3.56 L Hgb 9.9 L Hct 31.0 L RDW 14.6 H Neut % (Auto) Lymph % (Auto) Lymph # (Auto) RBC Morphology Abnormal A Polychromasia Few A Hypochromasia 1+ A Anisocytosis 1+ A Sodium Anion Gap Creatinine Glucose Calcium Alkaline Phosphatase NT-Pro-B Natriuret Pep 322.2 H Total Protein Albumin Urine Protein 30 A Amorphous Crystals Few A Hyaline Casts 4 H Meds: Medications Acetaminophen (Acetaminophen 325 Mg Tablet) 650 mg PO Q6HP PRN; Protocol PRN Reason: Per Pain Protocol/Fever > 101 Hydrocodone Bitart/Acetaminophen (Hydrocodone/Apap 7.5/325mg Tablet) 0 tab PO Q4HP PRN; Protocol PRN Reason: Per Pain Protocol Last Admin: 11/17/20 03:56 Dose: 1 tab Documented by: Albuterol Sulfate (Albuterol Sulfate 2.5 Mg/3 Ml Nebulizer) 2.5 mg NEB Q2HP PRN PRN Reason: Shortness Of Breath Aspirin (Aspirin 81 Mg Tab.Chew) 81 mg PO BID [facility] Last Admin: 11/16/20 21:39 Dose: 81 mg Documented by: Atorvastatin Calcium (Atorvastatin 40 Mg Tablet) 40 mg PO DAILY [facility] Last Admin: 11/16/20 15:18 Dose: Not Given Documented by: Bisacodyl (Bisacodyl 10 Mg Supp.Rect) 10 mg OR Q2-3DAYS PRN PRN Reason: Constipation Dextrose (Dextrose 50% 50 Ml Vial) 0 ml IV UD PRN PRN Reason: Hypoglycemia Diagnostic Test (Pha) (Accu-Chek 1 Each Strip) 1 each FS [facility] Last Admin: 11/17/20 07:20 Dose: 1 each Documented by: Docusate Sodium (Docusate Sodium 100 Mg Capsule) 100 mg PO BID [facility] Last Admin: 11/16/20 21:38 Dose: 100 mg Documented by: Glucose (Dextrose 31 Gm Oral.Susp) 15 gm PO PRN PRN PRN Reason: Hypoglycemia Hydromorphone HCl (Hydromorphone 0.5 Mg/0.5 Ml Syringe) 0.5 mg IV Q2HP PRN; Protocol PRN Reason: Per Pain Protocol Last Admin: 11/16/20 15:55 Dose: 0.5 mg Documented by: Sodium Chloride (Sodium Chloride 0.9%) 1,000 mls @ 100 mls/hr IV .Q10H [facility] Last Admin: 11/17/20 05:36 Dose: Not Given Documented by: Insulin Human Lispro (Insulin Lispro 1 Unit/0.01 Ml Unit) 0 unit SQ [facility]; Protocol Last Admin: 11/17/20 07:22 Dose: Not Given Documented by: Magnesium Hydroxide (Magnesium Hydroxide 30 Ml Oral.Susp) 30 ml PO BIDP PRN PRN Reason: Constipation Metoprolol Tartrate (Metoprolol Tartrate 25 Mg Tablet) 12.5 mg PO BID [facility] Last Admin: 11/16/20 21:39 Dose: 12.5 mg Documented by: Nicotine (Nicotine 14 Mg Patch) 14 mg TOPICAL DAILY@1000 BRITTANIE Ondansetron HCl (Ondansetron 4 Mg/2 Ml Vial) 4 mg IV Q6HP PRN PRN Reason: Nausea And Vomiting Ondansetron HCl (Ondansetron 4 Mg Odt Tablet) 4 mg SL Q6HP PRN PRN Reason: Nausea And Vomiting Polyethylene Glycol (Polyethylene Glycol 3350 17 Gm Packet) 17 gm PO DAILYP PRN PRN Reason: Constipation Senna (Sennosides 1 Tablet) 2 tab PO HS [facility] Last Admin: 11/16/20 21:39 Dose: 2 tab Documented by: Sodium Biphosphate/Sodium Phosphate (Fleets Adult Enema) 1 dose OR Q3-4DAYS PRN PRN Reason: Constipation Sodium Chloride (0.9 % Sodium Chloride 10 Ml Syringe) 10 ml IV Q8 [facility] Last Admin: 11/17/20 05:36 Dose: Not Given Documented by: Sodium Chloride (0.9 % Sodium Chloride 10 Ml Syringe) 10 ml IV Q8 [facility] Last Admin: 11/17/20 05:36 Dose: Not Given Documented by: Throat Lozenges (Benzocaine/Menthol 1 Lozenge) 1 lozenge PO PRN PRN PRN Reason: Sore Throat Zolpidem Tartrate (Zolpidem 5 Mg Tablet) 5 mg PO HSP PRN PRN Reason: Insomnia Last Admin: 11/16/20 01:53 Dose: 5 mg Documented by: A/P Narrative A/P Narrative: 65 years old female with multiple chronic medical problem admitted after a mechanical fall and left hip fracture: #Acute traumatic left hip fracture -Status post left hemiarthroplasty 11/16/2010 -Continue routine postop care. Per orthopedic surgeon patient can be weightbearing as tolerated #LUIS DANIEL versus CKD. Cr peaked at 1.8. -Patient is a poor historian and does not recall kidney disease in the past - Cr improved to 1.1 with IVF -Dc IVF and Follow renal panel. Avoid Nephrotoxic agents. #Hyponatremia with serum sodium 129. -Sodium remains 129. Monitor closely. #Coronary artery disease a status post CABG 2012 and multiple stent. No ACS - Resume home aspirin. Started low-dose beta-alfredo, statin -Echo completed and preliminary report EF of 55%. Follow official report - Continue telemetry monitoring x 24 more hours then Dc. - Discussed with patient to bring correct home medication list # HLP. Pt Says her MD stopped her Lipid lowering agent. - Started Lipitor 40mg daily. Get home Med list. #Non oxygen dependent COPD. No exacerbation -Bronchodilator, IS # DM II - Hold oral medication and continue sliding scale insulin #History of mitral valve repair. - Preliminary report of echocardiogram normal EF with no major valvular disorder. Will follow official report DVT PPX: ASA 81mg bid per Ortho Code Status : Full code Disposition: Inpatient RN Time Spent With Patient Time: Total time spent is greater than 50% in coordination of care (as documented) at patient's floor/unit and/or counseling patient: QUALITY VTE Deep Vein Thrombosis/Pulmonary Embolism Present on Admission: No
[2020-11-17] MEDS: ATORVASTATIN 40 MG TABLET PO SCH (07:52)
[2020-11-17] MEDS: METOPROLOL TARTRATE 25 MG TABLET PO SCH ×2 (08:49→20:21)
[2020-11-17] MEDS: ASPIRIN 81 MG TAB.CHEW PO SCH ×2 (08:50→20:20)
[2020-11-17] MEDS: DOCUSATE SODIUM 100 MG CAPSULE PO SCH ×2 (08:50→20:20)
[2020-11-17] MEDS: NICOTINE 14 MG PATCH TOPICAL SCH (08:50)
[2020-11-17] MEDS ORDERED: ENOXAPARIN 30 MG/0.3 ML SYRINGE SQ SCH (09:00)
--- NOTE | 2020-11-17 10:52 | Orthopedic Progress Note ---
SUBJECTIVE Subjective Patient information: Note initiated : 11/17/20 at 10:50 am Service Date, if different from initiated Date: [] Patient: Gina Garber 65 y/o F admitted on 11/15/20 for fall off chair. Chief Complaint: Mild to moderate pain. Principal diagnosis: Fall, Hip Fx Constitutional Vitals: Vital Signs Temp Pulse Resp BP Pulse Ox 98.6 F 81 18 131/65 91 11/17/20 08:00 11/17/20 08:00 11/17/20 08:00 11/17/20 08:00 11/17/20 08:00 Period Temp Pulse Resp BP Sys/Macias Pulse Ox Last 24 Hr 96.9 F-99.1 F 70-89 12-20 95-131/52-65 82-97 Intake and Output 11/16/20 11/17/20 11/17/20 21:59 05:59 13:59 Intake Total 800 1200 1240 Output Total 500 275 600 Balance 300 925 640 Weight 174 lb Intake & Output: Intake & Output 11/16/20 11/17/20 11/17/20 21:59 05:59 13:59 Intake Total 800 1200 1240 Output Total 500 275 600 Balance 300 925 640 Weight 174 lb Intake: IV 1000 1000 Sodium Chloride 0.9% 1,000 ml @ 1000 1000 84 mls/hr IV .[id number] [facility] Rx#: [id number] Oral 800 200 240 Output: Urine Catheter Amount 500 Void Amount 275 600 Other: Meal Breakfast Percent of Meal Consumed 75% Feeding Ability Independent Urine Appearance Clear Clear Cloudy Urine Color Dark Yellow Bright Yellow Pale # Bowel Movements 0 Bandages c/d/i nvi-distal OBJ DATA Labs CBC & Chem 7: 11/17/20 05:20 11/17/20 05:20 Labs: Abnormal Lab Results 11/17/20 11/17/20 11/16/20 05:20 05:20 05:39 RBC 3.11 L Hgb 8.6 L Hct 27.5 L RDW 14.6 H Neut % (Auto) 86.6 H Lymph % (Auto) 10.5 L Lymph # (Auto) 0.97 L RBC Morphology Polychromasia Hypochromasia Anisocytosis Sodium 129 L 129 L Anion Gap 7.0 L Creatinine 1.8 H Glucose 106 H Calcium 7.8 L 8.2 L Alkaline Phosphatase 120 H NT-Pro-B Natriuret Pep Total Protein 5.5 L Albumin 2.9 L Urine Protein Amorphous Crystals Hyaline Casts 11/16/20 11/15/20 11/15/20 05:39 21:50 04:07 RBC 3.56 L Hgb 9.9 L Hct 31.0 L RDW 14.6 H Neut % (Auto) Lymph % (Auto) Lymph # (Auto) RBC Morphology Abnormal A Polychromasia Few A Hypochromasia 1+ A Anisocytosis 1+ A Sodium Anion Gap Creatinine Glucose Calcium Alkaline Phosphatase NT-Pro-B Natriuret Pep 322.2 H Total Protein Albumin Urine Protein 30 A Amorphous Crystals Few A Hyaline Casts 4 H Meds: Medications Acetaminophen (Acetaminophen 325 Mg Tablet) 650 mg PO Q6HP PRN; Protocol PRN Reason: Per Pain Protocol/Fever > 101 Hydrocodone Bitart/Acetaminophen (Hydrocodone/Apap 7.5/325mg Tablet) 0 tab PO Q4HP PRN; Protocol PRN Reason: Per Pain Protocol Last Admin: 11/17/20 08:57 Dose: 1 tab Documented by: Albuterol Sulfate (Albuterol Sulfate 2.5 Mg/3 Ml Nebulizer) 2.5 mg NEB Q2HP PRN PRN Reason: Shortness Of Breath Aspirin (Aspirin 81 Mg Tab.Chew) 81 mg PO BID [facility] Last Admin: 11/17/20 08:50 Dose: 81 mg Documented by: Atorvastatin Calcium (Atorvastatin 40 Mg Tablet) 40 mg PO DAILY [facility] Last Admin: 11/17/20 07:52 Dose: Not Given Documented by: Bisacodyl (Bisacodyl 10 Mg Supp.Rect) 10 mg UT Q2-3DAYS PRN PRN Reason: Constipation Dextrose (Dextrose 50% 50 Ml Vial) 0 ml IV UD PRN PRN Reason: Hypoglycemia Diagnostic Test (Pha) (Accu-Chek 1 Each Strip) 1 each FS ACHS [facility] Last Admin: 11/17/20 07:20 Dose: 1 each Documented by: Docusate Sodium (Docusate Sodium 100 Mg Capsule) 100 mg PO BID [facility] Last Admin: 11/17/20 08:50 Dose: 100 mg Documented by: Glucose (Dextrose 31 Gm Oral.Susp) 15 gm PO PRN PRN PRN Reason: Hypoglycemia Hydromorphone HCl (Hydromorphone 0.5 Mg/0.5 Ml Syringe) 0.5 mg IV Q2HP PRN; Protocol PRN Reason: Per Pain Protocol Last Admin: 11/16/20 15:55 Dose: 0.5 mg Documented by: Insulin Human Lispro (Insulin Lispro 1 Unit/0.01 Ml Unit) 0 unit SQ [facility]; Protocol Last Admin: 11/17/20 07:22 Dose: Not Given Documented by: Magnesium Hydroxide (Magnesium Hydroxide 30 Ml Oral.Susp) 30 ml PO BIDP PRN PRN Reason: Constipation Metoprolol Tartrate (Metoprolol Tartrate 25 Mg Tablet) 12.5 mg PO BID [facility] Last Admin: 11/17/20 08:49 Dose: 12.5 mg Documented by: Nicotine (Nicotine 14 Mg Patch) 14 mg TOPICAL DAILY@1000 [facility] Last Admin: 11/17/20 08:50 Dose: 14 mg Documented by: Ondansetron HCl (Ondansetron 4 Mg/2 Ml Vial) 4 mg IV Q6HP PRN PRN Reason: Nausea And Vomiting Ondansetron HCl (Ondansetron 4 Mg Odt Tablet) 4 mg SL Q6HP PRN PRN Reason: Nausea And Vomiting Polyethylene Glycol (Polyethylene Glycol 3350 17 Gm Packet) 17 gm PO DAILYP PRN PRN Reason: Constipation Senna (Sennosides 1 Tablet) 2 tab PO HS [facility] Last Admin: 11/16/20 21:39 Dose: 2 tab Documented by: Sodium Biphosphate/Sodium Phosphate (Fleets Adult Enema) 1 dose UT Q3-4DAYS PRN PRN Reason: Constipation Sodium Chloride (0.9 % Sodium Chloride 10 Ml Syringe) 10 ml IV Q8 [facility] Last Admin: 11/17/20 05:36 Dose: Not Given Documented by: Sodium Chloride (0.9 % Sodium Chloride 10 Ml Syringe) 10 ml IV Q8 [facility] Last Admin: 11/17/20 05:36 Dose: Not Given Documented by: Throat Lozenges (Benzocaine/Menthol 1 Lozenge) 1 lozenge PO PRN PRN PRN Reason: Sore Throat Zolpidem Tartrate (Zolpidem 5 Mg Tablet) 5 mg PO HSP PRN PRN Reason: Insomnia Last Admin: 11/16/20 01:53 Dose: 5 mg Documented by: A/P Assessment and plan (1) Closed hip fracture: Status: Acute Comment: mobilize with PT discharge, likely to SNF, when stable and ready medically. Change to silver dressing today. Time Spent With Patient Time: Total time spent is greater than 50% in coordination of care (as documented) at patient's floor/unit and/or counseling patient:
--- NOTE | 2020-11-17 14:08 | Internal Med Progress Note ---
SUBJECTIVE Subjective Patient information: Note initiated : 11/17/20 at 2:03 pm Service Date, if different from initiated Date: [] Patient: Gina Garber 65 y/o F admitted on 11/15/20 for fall off chair. Chief Complaint: [] Principal diagnosis: Fall, Hip Fx Interval history: History of present illness: Ms. Garber is a 65 year old with multiple medical problems including CAD, status post four-vessel CABG 2012, status post 2 cardiac stent, DM II, HTN , mitral valve repair, non O2 dependnt COPD brought to emergency room after she had a mechanical fall and landed on her left side. Patient asleep the ground and fell. She had severe left hip pain. She did not lose consciousness. She did not hit her head. X-ray hip showed left hip fracture. Patient has history of coronary artery disease and followed at [place] by animal treatment investigator Dr. Constance Diallo. Her last appointment with animal treatment investigator was September 2020 and according to the patient everything was fine. No medication change was done. Patient does not know whether she has CHF or not. However she denies orthopnea, PND, chest pain on exertion. She ambulate with a cane. 11/17 Patient is feeling better. Pain is better controlled. No nausea vomiting chest pain shortness of breath. No events on telemetry 11/18 Constitutional Vitals: Vital Signs Temp Pulse Resp BP Pulse Ox 98.0 F 78 18 128/68 93 11/17/20 12:00 11/17/20 12:00 11/17/20 12:00 11/17/20 12:00 11/17/20 12:00 Period Temp Pulse Resp BP Sys/Macias Pulse Ox Last 24 Hr 97.4 F-99.1 F 70-89 16-20 102-131/53-68 82-95 Intake and Output 11/17/20 11/17/20 11/17/20 05:59 13:59 21:59 Intake Total 1200 1480 Output Total 275 950 Balance 925 530 Weight 78.925 kg Patient Weight 11/18/20 05:59 Weight 78.925 kg Intake & Output: Intake & Output 11/17/20 11/17/20 11/17/20 05:59 13:59 21:59 Intake Total 1200 1480 Output Total 275 950 Balance 925 530 Weight 78.925 kg Intake: IV 1000 1000 Sodium Chloride 0.9% 1,000 ml @ 1000 1000 84 mls/hr IV .[id number] [facility] Rx#: [id number] Oral 200 480 Output: Void Amount 275 950 Other: Meal Lunch Percent of Meal Consumed 100% Feeding Ability Independent Urine Appearance Clear Clear Urine Color Bright Yellow Pale # Bowel Movements 0 Exam: General: Alert, Awake, No acute Distress, obese Eyes/N/T: EOMI, Head/Neck: neck supple, CV: RRR, No murmurs, Pulm: Clear b/l, no wheezing/rhonchi/rales Abd: soft, nontender, +BS x4 Ext: no clubbing/cyanosis/edema. left hip dressings Neuro: Alert, no focal deficits, moves all extremities, Skin: warm/dry OBJ DATA Labs CBC & Chem 7: 11/17/20 05:20 11/17/20 05:20 Labs: Abnormal Lab Results 11/17/20 11/17/20 11/16/20 05:20 05:20 05:39 RBC 3.11 L Hgb 8.6 L Hct 27.5 L RDW 14.6 H Neut % (Auto) 86.6 H Lymph % (Auto) 10.5 L Lymph # (Auto) 0.97 L RBC Morphology Polychromasia Hypochromasia Anisocytosis Sodium 129 L 129 L Anion Gap 7.0 L Creatinine 1.8 H Glucose 106 H Calcium 7.8 L 8.2 L Alkaline Phosphatase 120 H NT-Pro-B Natriuret Pep Total Protein 5.5 L Albumin 2.9 L Urine Protein Amorphous Crystals Hyaline Casts 11/16/20 11/15/20 11/15/20 05:39 21:50 04:07 RBC 3.56 L Hgb 9.9 L Hct 31.0 L RDW 14.6 H Neut % (Auto) Lymph % (Auto) Lymph # (Auto) RBC Morphology Abnormal A Polychromasia Few A Hypochromasia 1+ A Anisocytosis 1+ A Sodium Anion Gap Creatinine Glucose Calcium Alkaline Phosphatase NT-Pro-B Natriuret Pep 322.2 H Total Protein Albumin Urine Protein 30 A Amorphous Crystals Few A Hyaline Casts 4 H Meds: Medications Acetaminophen (Acetaminophen 325 Mg Tablet) 650 mg PO Q6HP PRN; Protocol PRN Reason: Per Pain Protocol/Fever > 101 Hydrocodone Bitart/Acetaminophen (Hydrocodone/Apap 7.5/325mg Tablet) 0 tab PO Q4HP PRN; Protocol PRN Reason: Per Pain Protocol Last Admin: 11/17/20 13:16 Dose: 1 tab Documented by: Albuterol Sulfate (Albuterol Sulfate 2.5 Mg/3 Ml Nebulizer) 2.5 mg NEB Q2HP PRN PRN Reason: Shortness Of Breath Aspirin (Aspirin 81 Mg Tab.Chew) 81 mg PO BID [facility] Last Admin: 11/17/20 08:50 Dose: 81 mg Documented by: Atorvastatin Calcium (Atorvastatin 40 Mg Tablet) 40 mg PO DAILY [facility] Last Admin: 11/17/20 07:52 Dose: Not Given Documented by: Bisacodyl (Bisacodyl 10 Mg Supp.Rect) 10 mg [place] Q2-3DAYS PRN PRN Reason: Constipation Dextrose (Dextrose 50% 50 Ml Vial) 0 ml IV UD PRN PRN Reason: Hypoglycemia Diagnostic Test (Pha) (Accu-Chek 1 Each Strip) 1 each FS [facility] Last Admin: 11/17/20 11:09 Dose: 1 each Documented by: Docusate Sodium (Docusate Sodium 100 Mg Capsule) 100 mg PO BID [facility] Last Admin: 11/17/20 08:50 Dose: 100 mg Documented by: Glucose (Dextrose 31 Gm Oral.Susp) 15 gm PO PRN PRN PRN Reason: Hypoglycemia Hydromorphone HCl (Hydromorphone 0.5 Mg/0.5 Ml Syringe) 0.5 mg IV Q2HP PRN; Protocol PRN Reason: Per Pain Protocol Last Admin: 11/16/20 15:55 Dose: 0.5 mg Documented by: Insulin Human Lispro (Insulin Lispro 1 Unit/0.01 Ml Unit) 0 unit SQ [facility]; Protocol Last Admin: 11/17/20 11:59 Dose: 4 units Documented by: Magnesium Hydroxide (Magnesium Hydroxide 30 Ml Oral.Susp) 30 ml PO BIDP PRN PRN Reason: Constipation Metoprolol Tartrate (Metoprolol Tartrate 25 Mg Tablet) 12.5 mg PO BID [facility] Last Admin: 11/17/20 08:49 Dose: 12.5 mg Documented by: Nicotine (Nicotine 14 Mg Patch) 14 mg TOPICAL DAILY@1000 [facility] Last Admin: 11/17/20 08:50 Dose: 14 mg Documented by: Ondansetron HCl (Ondansetron 4 Mg/2 Ml Vial) 4 mg IV Q6HP PRN PRN Reason: Nausea And Vomiting Ondansetron HCl (Ondansetron 4 Mg Odt Tablet) 4 mg SL Q6HP PRN PRN Reason: Nausea And Vomiting Polyethylene Glycol (Polyethylene Glycol 3350 17 Gm Packet) 17 gm PO DAILYP PRN PRN Reason: Constipation Senna (Sennosides 1 Tablet) 2 tab PO HS [facility] Last Admin: 11/16/20 21:39 Dose: 2 tab Documented by: Sodium Biphosphate/Sodium Phosphate (Fleets Adult Enema) 1 dose [place] Q3-4DAYS PRN PRN Reason: Constipation Sodium Chloride (0.9 % Sodium Chloride 10 Ml Syringe) 10 ml IV Q8 [facility] Last Admin: 11/17/20 12:20 Dose: Not Given Documented by: Sodium Chloride (0.9 % Sodium Chloride 10 Ml Syringe) 10 ml IV Q8 [facility] Last Admin: 11/17/20 12:20 Dose: Not Given Documented by: Throat Lozenges (Benzocaine/Menthol 1 Lozenge) 1 lozenge PO PRN PRN PRN Reason: Sore Throat Zolpidem Tartrate (Zolpidem 5 Mg Tablet) 5 mg PO HSP PRN PRN Reason: Insomnia Last Admin: 11/16/20 01:53 Dose: 5 mg Documented by: A/P Narrative A/P Narrative: A: #Acute traumatic left hip fracture: Status post left hemiarthroplasty (11/16) -Per orthopedic surgeon #LUIS DANIEL vs CKD: Cr peaked at 1.8, now improved -Patient is a poor historian and does not recall kidney disease in the past #Hyponatremia: stable #CAD w/CABG 2012 & multiple stent - Resume home aspirin. Started low-dose beta-alfredo, statin # HLD: Pt Says her MD stopped her Lipid lowering agent -- Started Lipitor 40mg daily. Get home Med list. #Non oxygen dependent COPD # DM II: -continue sliding scale insulin #History of mitral valve repair. - Preliminary report of echocardiogram normal EF with no major valvular disorder. DVT PPX: ASA 81mg bid per Ortho Code Status : Full code Time Spent With Patient Time: Total time spent is greater than 50% in coordination of care (as documented) at patient's floor/unit and/or counseling patient: QUALITY VTE Deep Vein Thrombosis/Pulmonary Embolism Present on Admission: No
--- NOTE | 2020-11-17 14:09 | Discharge Summary ---
Discharge Provider Provider Patient information: Note initiated : 11/17/20 at 2:08 pm Service Date, if different from initiated Date: [] Patient: Gina Garber 65 y/o F admitted on 11/15/20 for fall off chair. Chief Complaint: [] Date of admission: 11/15/20 22:54 Discharge date: 11/18/20 Primary care physician: Pily Lr Consults: 11/15/20 Consult to Physician [CONS] Stat Comment: Consulting Provider: Kt Siegel Reason For Exam: Physician to Consult Consult to Physician [CONS] Stat Comment: Consulting Provider: Antoni Avalos Reason For Exam: Physician to Consult Discharge Meds Discharge Medications Home Medications potassium chloride 20 meq PO BIDCC #10 tab 12/16/17 [Rx Confirmed 11/17/20 Last Taken Unknown] aspirin 325 mg tablet 325 mg PO .COMPLEX 08/20/19 [History Confirmed 11/17/20 Last Taken Unknown] lidocaine 5 % topical cream 1 applic TOPICAL .COMPLEX 08/20/19 [History Confirmed 11/17/20 Last Taken Unknown] tizanidine 4 mg capsule 4 mg PO .COMPLEX 08/20/19 [History Confirmed 11/17/20 Last Taken Unknown] atorvastatin 20 mg PO DAILY #30 tab 11/17/20 [Rx Last Taken Unknown] metoprolol tartrate 12.5 mg PO BID #30 tab 11/17/20 [Rx Last Taken Unknown] aspirin [Adult Low Dose Aspirin] 81 mg PO BID #60 tab 11/18/20 [Rx Last Taken Unknown] hydrocodone-acetaminophen 1 - 2 tab PO Q6HP PRN #20 tab 11/18/20 [Rx Last Taken Unknown] COURSE Hospital Course Hospital course: Interval history: History of present illness: Ms. Garber is a 65 year old with multiple medical problems including CAD, status post four- vessel CABG 2012, status post 2 cardiac stent, DM II, HTN , mitral valve repair, non O2 dependnt COPD brought to emergency room after she had a mechanical fall and landed on her left side. Patient asleep the ground and fell. She had severe left hip pain. She did not lose consciousness. She did not hit her head. X-ray hip showed left hip fracture. Patient has history of coronary artery disease and followed at [facility] by general production laborer Dr. Constance Diallo. Her last appointment with general production laborer was September 2020 and according to the patient everything was fine. No medication change was done. Patient does not know whether she has CHF or not. However she denies orthopnea, PND, chest pain on exertion. She ambulate with a cane. 11/17 Patient is feeling better. Pain is better controlled. No nausea vomiting chest pain shortness of breath. No events on telemetry 11/18 No new complaints. But on oxygen at night. Patient has very poor insight incentive spirometry effort. A/P Narrative: #Acute traumatic left hip fracture: Status post left hemiarthroplasty (11/16) -Per orthopedic surgeon #LUIS DANIEL vs CKD: Cr peaked at 1.8, now improved -Patient is a poor historian and does not recall kidney disease in the past #Hyponatremia: stable #CAD w/CABG 2012 & multiple stent - Resume home aspirin. Started low-dose beta-alfredo, statin # HLD: Pt Says her MD stopped her Lipid lowering agent -Started Lipitor #Non oxygen dependent COPD: may need RT to assess #Hypoxia at night: # DM II: -continue sliding scale insulin #Hypomag: replace #History of mitral valve repair. - Preliminary report of echocardiogram normal EF with no major valvular disorder. Discharge diagnosis: Left hip fracture acute kidney injury hyponatremia Secondary discharge diagnosis: History of CAD with CABG hyperlipidemia COPD Time Spent with Patient Time attestation: Total time spent providing and/or coordinating discharge services: EXAM Constitutional Vitals: Temp Pulse Resp BP Pulse Ox 98.0 F 78 18 128/68 93 11/17/20 12:00 11/17/20 12:00 11/17/20 12:00 11/17/20 12:00 11/17/20 12:00 Discharge Data Data Completed and Pending Labs on day of discharge: Labs from last 24 hours 11/17/20 11/17/20 11/17/20 05:21 05:21 05:20 WBC RBC Hgb Pending Hct Pending MCV MCH MCHC RDW Plt Count MPV Neut % (Auto) Lymph % (Auto) [place] % (Auto) Eos % (Auto) Baso % (Auto) Lymph # (Auto) [place] # (Auto) Eos # (Auto) Baso # (Auto) Absolute Neutrophils PT 14.3 INR 1.1 Sodium 129 L Potassium 4.3 Chloride 100 Carbon Dioxide 22 Anion Gap 7.0 L BUN 15 Creatinine 1.1 GFR Calculation 53 Glucose 73 Calcium 7.8 L Total Bilirubin 0.2 AST 26 ALT 8 Alkaline Phosphatase 120 H Total Protein 5.5 L Albumin 2.9 L Globulin 2.6 Albumin/Globulin Ratio 1.1 11/17/20 05:20 WBC 9.2 RBC 3.11 L Hgb 8.6 L Hct 27.5 L MCV 88.4 MCH 27.7 MCHC 31.3 RDW 14.6 H Plt Count 157 MPV 8.5 Neut % (Auto) 86.6 H Lymph % (Auto) 10.5 L [place] % (Auto) 2.6 Eos % (Auto) 0.2 Baso % (Auto) 0.1 Lymph # (Auto) 0.97 L [place] # (Auto) 0.24 Eos # (Auto) 0.02 Baso # (Auto) 0.01 Absolute Neutrophils 7.98 PT INR Sodium Potassium Chloride Carbon Dioxide Anion Gap BUN Creatinine GFR Calculation Glucose Calcium Total Bilirubin AST ALT Alkaline Phosphatase Total Protein Albumin Globulin Albumin/Globulin Ratio Discharge Plan Patient/Caregiver Discharge Instructions Activity: increase activity as tolerated Diet: Consistent Carbohydrate Activity Restrictions/Additional Instructions: Referral to see project management it specialist for COPD and evaluation for home oxygen 3 to 7 days. Hold home aspirin 325mg daily until finished with the twice daily aspirin prescription by Orthopedics. Prescriptions: New atorvastatin 40 mg Tablet 20 mg PO DAILY Qty: 30 RF: 0 metoprolol tartrate 25 mg Tablet 12.5 mg PO BID Qty: 30 RF: 0 aspirin [Adult Low Dose Aspirin] 81 mg Tablet,Delayed Release (Dr/Ec) 81 mg PO BID Qty: 60 RF: 0 Continued lidocaine 5 % cream 1 applic TOPICAL .COMPLEX RF: 0 tizanidine 4 mg capsule 4 mg PO .COMPLEX RF: 0 aspirin 325 mg tablet 325 mg PO .COMPLEX RF: 0 potassium chloride 20 MEQ tablet 20 meq PO BIDCC Qty: 10 RF: 0 hydrocodone-acetaminophen 1 TAB tablet 1 - 2 tab PO Q6HP PRN (Reason: Pain) Qty: 20 RF: 0 Follow Up Plan Follow up with: Kt Siegel MD [Physician] - 12/02/20 10:20 am (Check-in at 10:00 am) Andre Gilbert MD [Physician] - Pliy Lr MD [Primary Care Provider] - 12/03/20 3:00 pm (Check-in at 2:45 pm) Patient Disposition: Xfer SNF Prognosis: Undetermined Rehab Potential: Fair I certify that the patient requires SNF services: Yes Overall status at discharge: patient is progressing back to baseline Discharge Orders: Discharge Order (Routine); Ordered 11/18/20 Ordered By: Elliott Owen COUNTS INCLUDE 234 BEDS AT THE [facility] VTE Deep Vein Thrombosis/Pulmonary Embolism Present on Admission: No
[2020-11-17 15:17] LABS: HDL Cholesterol 45 mg/dL (>40); LDL Cholesterol,Calculated 51 mg/dL (<100); Non-HDL Cholesterol 70 mg/dL (<130); Triglycerides 99 mg/dL (<150)
[2020-11-17] MEDS: SENNOSIDES 1 TABLET PO SCH (20:19)
[2020-11-18] MEDS: HYDROCODONE/APAP 7.5/325MG TABLET PO PRN ×2 (00:12→05:29)
[2020-11-18] MEDS: 0.9 % SODIUM CHLORIDE 10 ML SYRINGE IV SCH ×4 (04:09→12:16)
[2020-11-18 06:26] LABS: Hematocrit 27.1 % (36.0-48.0); Hemoglobin 8.7 g/dL (12.0-15.0)
[2020-11-18 06:49] LABS: INR 1.1 (0.9-1.1); Prothrombin Time 14.3 sec (11.9-14.5)
[2020-11-18 06:54] LABS: ALT/SGPT 5 U/L (<40); AST/SGOT 21 U/L (<32); Albumin 2.7 gm/dL (3.2-5.2); Albumin/Globulin Ratio 0.9 (1.0-2.3); Alkaline Phosphatase 126 U/L (39-117); Bilirubin,Direct < 0.2 mg/dL (0-0.3); Bilirubin,Total 0.2 mg/dL (0.1-1.0); Blood Urea Nitrogen 12 mg/dL (8-23); Calcium 8.3 mg/dL (8.6-10.4); Carbon Dioxide 23 mmol/L (22-30); Chloride 102 mmol/L (96-108); Glomerular Filtration Rate 92; Glucose 94 mg/dL (70-105); Lactate Dehydrogenase 195 U/L (135-225); Phosphorous 2.5 mg/dL (2.5-4.5); Triglycerides 106 mg/dL (<150); Uric Acid 5.1 mg/dL (2.5-8.0)
[2020-11-18] MEDS: INSULIN LISPRO 1 UNIT/0.01 ML UNIT SQ SCH ×2 (07:33→11:46)
[2020-11-18] MEDS ORDERED: MAGNESIUM SULFATE 2 GM/50 ML BAG IV ONE (07:43)
--- NOTE | 2020-11-18 07:44 | Internal Med Progress Note ---
SUBJECTIVE Subjective Patient information: Note initiated : 11/18/20 at 7:41 am Service Date, if different from initiated Date: [] Patient: Gina Garber 65 y/o F admitted on 11/15/20 for fall off chair. Chief Complaint: [] Principal diagnosis: Fall, Hip Fx Interval history: History of present illness: Ms. Garber is a 65 year old with multiple medical problems including CAD, status post four-vessel CABG 2012, status post 2 cardiac stent, DM II, HTN , mitral valve repair, non O2 dependnt COPD brought to emergency room after she had a mechanical fall and landed on her left side. Patient asleep the ground and fell. She had severe left hip pain. She did not lose consciousness. She did not hit her head. X-ray hip showed left hip fracture. Patient has history of coronary artery disease and followed at [facility] by freight tallier Dr. Constance Diallo. Her last appointment with freight tallier was September 2020 and according to the patient everything was fine. No medication change was done. Patient does not know whether she has CHF or not. However she denies orthopnea, PND, chest pain on exertion. She ambulate with a cane. 11/17 Patient is feeling better. Pain is better controlled. No nausea vomiting chest pain shortness of breath. No events on telemetry 11/18 No new complaints. But on oxygen at night. Patient has very poor insight incentive spirometry effort. Review of Systems: denies headache/fever/chills/nausea/vomiting/chest or abdominal pain/cough/dyspnea/diarrhea. Otherwise see above. Constitutional Vitals: Vital Signs Temp Pulse Resp BP Pulse Ox 98.0 F 83 14 148/71 96 11/18/20 03:13 11/18/20 03:13 11/18/20 03:13 11/18/20 03:13 11/18/20 03:13 Period Temp Pulse Resp BP Sys/Macias Pulse Ox Last 24 Hr 98.0 F-99.3 F 78-103 14-24 112-160/62-71 91-97 Intake and Output 11/17/20 11/18/20 11/18/20 21:59 05:59 13:59 Intake Total 1000 Output Total 575 900 Balance -575 100 Weight 78.925 kg Intake & Output: Intake & Output 0711/18/20 11/18/20 21:59 05:59 13:59 Intake Total 1000 Output Total 575 900 Balance -575 100 Weight 78.925 kg Intake: Oral 1000 Output: Void Amount 575 900 Other: Urine Appearance Clear Clear Urine Color Pale Bright Yellow Urine Odor Normal Exam: General: Alert, Awake, No acute Distress, obese Eyes/N/T: EOMI, Head/Neck: neck supple, CV: RRR, No murmurs, Pulm: Clear b/l, no wheezing/rhonchi/rales Abd: soft, nontender, +BS x4 Ext: no clubbing/cyanosis/edema. left hip dressings Neuro: Alert, no focal deficits, moves all extremities, Skin: warm/dry OBJ DATA Labs CBC & Chem 7: 11/18/20 05:08 11/18/20 05:08 Labs: Abnormal Lab Results 11/18/20 11/18/20 11/17/20 05:08 05:08 05:20 RBC Hgb 8.7 L Hct 27.1 L RDW Neut % (Auto) Lymph % (Auto) Lymph # (Auto) RBC Morphology Polychromasia Hypochromasia Anisocytosis Sodium 132 L 129 L Anion Gap 7.0 L 7.0 L Creatinine Glucose Calcium 8.3 L 7.8 L Magnesium 1.4 L GGT 58 H Alkaline Phosphatase 126 H 120 H NT-Pro-B Natriuret Pep Total Protein 5.7 L 5.5 L Albumin 2.7 L 2.9 L Albumin/Globulin Ratio 0.9 L Urine Protein Amorphous Crystals Hyaline Casts 11/17/20 11/16/20 11/16/20 05:20 05:39 05:39 RBC 3.11 L 3.56 L Hgb 8.6 L 9.9 L Hct 27.5 L 31.0 L RDW 14.6 H 14.6 H Neut % (Auto) 86.6 H Lymph % (Auto) 10.5 L Lymph # (Auto) 0.97 L RBC Morphology Abnormal A Polychromasia Few A Hypochromasia 1+ A Anisocytosis 1+ A Sodium 129 L Anion Gap Creatinine 1.8 H Glucose 106 H Calcium 8.2 L Magnesium GGT Alkaline Phosphatase NT-Pro-B Natriuret Pep Total Protein Albumin Albumin/Globulin Ratio Urine Protein Amorphous Crystals Hyaline Casts 11/15/20 11/15/20 21:50 04:07 RBC Hgb Hct RDW Neut % (Auto) Lymph % (Auto) Lymph # (Auto) RBC Morphology Polychromasia Hypochromasia Anisocytosis Sodium Anion Gap Creatinine Glucose Calcium Magnesium GGT Alkaline Phosphatase NT-Pro-B Natriuret Pep 322.2 H Total Protein Albumin Albumin/Globulin Ratio Urine Protein 30 A Amorphous Crystals Few A Hyaline Casts 4 H Meds: Medications Acetaminophen (Acetaminophen 325 Mg Tablet) 650 mg PO Q6HP PRN; Protocol PRN Reason: Per Pain Protocol/Fever > 101 Hydrocodone Bitart/Acetaminophen (Hydrocodone/Apap 7.5/325mg Tablet) 0 tab PO Q4HP PRN; Protocol PRN Reason: Per Pain Protocol Last Admin: 11/18/20 05:29 Dose: 2 tab Documented by: Albuterol Sulfate (Albuterol Sulfate 2.5 Mg/3 Ml Nebulizer) 2.5 mg NEB Q2HP PRN PRN Reason: Shortness Of Breath Aspirin (Aspirin 81 Mg Tab.Chew) 81 mg PO BID [facility] Last Admin: 11/17/20 20:20 Dose: 81 mg Documented by: Atorvastatin Calcium (Atorvastatin 40 Mg Tablet) 40 mg PO DAILY [facility] Last Admin: 11/17/20 07:52 Dose: Not Given Documented by: Bisacodyl (Bisacodyl 10 Mg Supp.Rect) 10 mg [place] Q2-3DAYS PRN PRN Reason: Constipation Dextrose (Dextrose 50% 50 Ml Vial) 0 ml IV UD PRN PRN Reason: Hypoglycemia Diagnostic Test (Pha) (Accu-Chek 1 Each Strip) 1 each FS [facility] Last Admin: 11/18/20 07:33 Dose: 1 each Documented by: Docusate Sodium (Docusate Sodium 100 Mg Capsule) 100 mg PO BID [facility] Last Admin: 11/17/20 20:20 Dose: 100 mg Documented by: Glucose (Dextrose 31 Gm Oral.Susp) 15 gm PO PRN PRN PRN Reason: Hypoglycemia Hydromorphone HCl (Hydromorphone 0.5 Mg/0.5 Ml Syringe) 0.5 mg IV Q2HP PRN; Protocol PRN Reason: Per Pain Protocol Last Admin: 11/16/20 15:55 Dose: 0.5 mg Documented by: Insulin Human Lispro (Insulin Lispro 1 Unit/0.01 Ml Unit) 0 unit SQ [facility]; Protocol Last Admin: 11/18/20 07:33 Dose: Not Given Documented by: Magnesium Hydroxide (Magnesium Hydroxide 30 Ml Oral.Susp) 30 ml PO BIDP PRN PRN Reason: Constipation Metoprolol Tartrate (Metoprolol Tartrate 25 Mg Tablet) 12.5 mg PO BID [facility] Last Admin: 11/17/20 20:21 Dose: 12.5 mg Documented by: Nicotine (Nicotine 14 Mg Patch) 14 mg TOPICAL DAILY@1000 [facility] Last Admin: 11/17/20 08:50 Dose: 14 mg Documented by: Ondansetron HCl (Ondansetron 4 Mg/2 Ml Vial) 4 mg IV Q6HP PRN PRN Reason: Nausea And Vomiting Ondansetron HCl (Ondansetron 4 Mg Odt Tablet) 4 mg SL Q6HP PRN PRN Reason: Nausea And Vomiting Polyethylene Glycol (Polyethylene Glycol 3350 17 Gm Packet) 17 gm PO DAILYP PRN PRN Reason: Constipation Senna (Sennosides 1 Tablet) 2 tab PO HS [facility] Last Admin: 11/17/20 20:19 Dose: 2 tab Documented by: Sodium Biphosphate/Sodium Phosphate (Fleets Adult Enema) 1 dose [place] Q3-4DAYS PRN PRN Reason: Constipation Sodium Chloride (0.9 % Sodium Chloride 10 Ml Syringe) 10 ml IV Q8 [facility] Last Admin: 11/18/20 05:29 Dose: 10 ml Documented by: Sodium Chloride (0.9 % Sodium Chloride 10 Ml Syringe) 10 ml IV Q8 [facility] Last Admin: 11/18/20 04:09 Dose: Not Given Documented by: Throat Lozenges (Benzocaine/Menthol 1 Lozenge) 1 lozenge PO PRN PRN PRN Reason: Sore Throat Zolpidem Tartrate (Zolpidem 5 Mg Tablet) 5 mg PO HSP PRN PRN Reason: Insomnia Last Admin: 11/16/20 01:53 Dose: 5 mg Documented by: A/P Narrative A/P Narrative: A: #Acute traumatic left hip fracture: Status post left hemiarthroplasty (11/16) -Per orthopedic surgeon #LUIS DANIEL vs CKD: Cr peaked at 1.8, now improved -Patient is a poor historian and does not recall kidney disease in the past #Hyponatremia: stable #CAD w/CABG 2012 & multiple stent - Resume home aspirin. Started low-dose beta-alfredo, statin # HLD: Pt Says her MD stopped her Lipid lowering agent -Started Lipitor 40mg daily. Get home Med list. #Non oxygen dependent COPD: may need RT to assess #Hypoxia at night: # DM II: -continue sliding scale insulin #Hypomag: replace #History of mitral valve repair. - Preliminary report of echocardiogram normal EF with no major valvular disorder. DVT PPX: ASA 81mg bid per Ortho Code Status : Full code Time Spent With Patient Time: Total time spent is greater than 50% in coordination of care (as documented) at patient's floor/unit and/or counseling patient: [facility]ALITY VTE Deep Vein Thrombosis/Pulmonary Embolism Present on Admission: No
--- NOTE | 2020-11-18 08:31 | Orthopedic Progress Note ---
SUBJECTIVE Subjective Patient information: Note initiated : 11/18/20 at 8:22 am Service Date, if different from initiated Date: [] Patient: Gina Garber 65 y/o F admitted on 11/15/20 for fall off chair. Chief Complaint: [S/p left hip hemiarthroplasty] Principal diagnosis: Fall, Hip Fx Constitutional Vitals: Vital Signs Temp Pulse Resp BP Pulse Ox 98.0 F 83 14 148/71 96 11/18/20 03:13 11/18/20 03:13 11/18/20 03:13 11/18/20 03:13 11/18/20 03:13 Period Temp Pulse Resp BP Sys/Macias Pulse Ox Last 24 Hr 98.0 F-99.3 F 78-103 14-24 112-160/62-71 92-97 Intake and Output 11/17/20 11/18/20 11/18/20 21:59 05:59 13:59 Intake Total 1000 Output Total 575 900 Balance -575 100 Weight 174 lb Intake & Output: Intake & Output 11/17/20 11/18/20 11/18/20 21:59 05:59 13:59 Intake Total 1000 Output Total 575 900 Balance -575 100 Weight 174 lb Intake: Oral 1000 Output: Void Amount 575 900 Other: Urine Appearance Clear Clear Urine Color Pale Bright Yellow Urine Odor Normal OBJ DATA Labs CBC & Chem 7: 11/18/20 05:08 11/18/20 05:08 Labs: Abnormal Lab Results 11/18/20 11/18/20 11/17/20 05:08 05:08 05:20 RBC Hgb 8.7 L Hct 27.1 L RDW Neut % (Auto) Lymph % (Auto) Lymph # (Auto) RBC Morphology Polychromasia Hypochromasia Anisocytosis Sodium 132 L 129 L Anion Gap 7.0 L 7.0 L Creatinine Glucose Calcium 8.3 L 7.8 L Magnesium 1.4 L GGT 58 H Alkaline Phosphatase 126 H 120 H NT-Pro-B Natriuret Pep Total Protein 5.7 L 5.5 L Albumin 2.7 L 2.9 L Albumin/Globulin Ratio 0.9 L Urine Protein Amorphous Crystals Hyaline Casts 11/17/20 11/16/20 11/16/20 05:20 05:39 05:39 RBC 3.11 L 3.56 L Hgb 8.6 L 9.9 L Hct 27.5 L 31.0 L RDW 14.6 H 14.6 H Neut % (Auto) 86.6 H Lymph % (Auto) 10.5 L Lymph # (Auto) 0.97 L RBC Morphology Abnormal A Polychromasia Few A Hypochromasia 1+ A Anisocytosis 1+ A Sodium 129 L Anion Gap Creatinine 1.8 H Glucose 106 H Calcium 8.2 L Magnesium GGT Alkaline Phosphatase NT-Pro-B Natriuret Pep Total Protein Albumin Albumin/Globulin Ratio Urine Protein Amorphous Crystals Hyaline Casts 11/15/20 11/15/20 21:50 04:07 RBC Hgb Hct RDW Neut % (Auto) Lymph % (Auto) Lymph # (Auto) RBC Morphology Polychromasia Hypochromasia Anisocytosis Sodium Anion Gap Creatinine Glucose Calcium Magnesium GGT Alkaline Phosphatase NT-Pro-B Natriuret Pep 322.2 H Total Protein Albumin Albumin/Globulin Ratio Urine Protein 30 A Amorphous Crystals Few A Hyaline Casts 4 H Meds: Medications Acetaminophen (Acetaminophen 325 Mg Tablet) 650 mg PO Q6HP PRN; Protocol PRN Reason: Per Pain Protocol/Fever > 101 Hydrocodone Bitart/Acetaminophen (Hydrocodone/Apap 7.5/325mg Tablet) 0 tab PO Q4HP PRN; Protocol PRN Reason: Per Pain Protocol Last Admin: 11/18/20 05:29 Dose: 2 tab Documented by: Albuterol Sulfate (Albuterol Sulfate 2.5 Mg/3 Ml Nebulizer) 2.5 mg NEB Q2HP PRN PRN Reason: Shortness Of Breath Aspirin (Aspirin 81 Mg Tab.Chew) 81 mg PO BID [facility] Last Admin: 11/17/20 20:20 Dose: 81 mg Documented by: Atorvastatin Calcium (Atorvastatin 40 Mg Tablet) 40 mg PO DAILY [facility] Last Admin: 11/17/20 07:52 Dose: Not Given Documented by: Bisacodyl (Bisacodyl 10 Mg Supp.Rect) 10 mg [place] Q2-3DAYS PRN PRN Reason: Constipation Dextrose (Dextrose 50% 50 Ml Vial) 0 ml IV UD PRN PRN Reason: Hypoglycemia Diagnostic Test (Pha) (Accu-Chek 1 Each Strip) 1 each FS ACHS [facility] Last Admin: 11/18/20 07:33 Dose: 1 each Documented by: Docusate Sodium (Docusate Sodium 100 Mg Capsule) 100 mg PO BID [facility] Last Admin: 11/17/20 20:20 Dose: 100 mg Documented by: Glucose (Dextrose 31 Gm Oral.Susp) 15 gm PO PRN PRN PRN Reason: Hypoglycemia Hydromorphone HCl (Hydromorphone 0.5 Mg/0.5 Ml Syringe) 0.5 mg IV Q2HP PRN; Protocol PRN Reason: Per Pain Protocol Last Admin: 11/16/20 15:55 Dose: 0.5 mg Documented by: Magnesium Sulfate (Magnesium Sulfate) 2 gm in 50 mls @ 25 mls/hr IV ONCE ONE Stop: 11/18/20 09:42 Insulin Human Lispro (Insulin Lispro 1 Unit/0.01 Ml Unit) 0 unit SQ [facility]; Protocol Last Admin: 11/18/20 07:33 Dose: Not Given Documented by: Magnesium Hydroxide (Magnesium Hydroxide 30 Ml Oral.Susp) 30 ml PO BIDP PRN PRN Reason: Constipation Metoprolol Tartrate (Metoprolol Tartrate 25 Mg Tablet) 12.5 mg PO BID [facility] Last Admin: 11/17/20 20:21 Dose: 12.5 mg Documented by: Nicotine (Nicotine 14 Mg Patch) 14 mg TOPICAL DAILY@1000 [facility] Last Admin: 11/17/20 08:50 Dose: 14 mg Documented by: Ondansetron HCl (Ondansetron 4 Mg/2 Ml Vial) 4 mg IV Q6HP PRN PRN Reason: Nausea And Vomiting Ondansetron HCl (Ondansetron 4 Mg Odt Tablet) 4 mg SL Q6HP PRN PRN Reason: Nausea And Vomiting Polyethylene Glycol (Polyethylene Glycol 3350 17 Gm Packet) 17 gm PO DAILYP PRN PRN Reason: Constipation Senna (Sennosides 1 Tablet) 2 tab PO HS [facility] Last Admin: 11/17/20 20:19 Dose: 2 tab Documented by: Sodium Biphosphate/Sodium Phosphate (Fleets Adult Enema) 1 dose SD Q3-4DAYS PRN PRN Reason: Constipation Sodium Chloride (0.9 % Sodium Chloride 10 Ml Syringe) 10 ml IV Q8 [facility] Last Admin: 11/18/20 05:29 Dose: 10 ml Documented by: Sodium Chloride (0.9 % Sodium Chloride 10 Ml Syringe) 10 ml IV Q8 [facility] Last Admin: 11/18/20 04:09 Dose: Not Given Documented by: Throat Lozenges (Benzocaine/Menthol 1 Lozenge) 1 lozenge PO PRN PRN PRN Reason: Sore Throat Zolpidem Tartrate (Zolpidem 5 Mg Tablet) 5 mg PO HSP PRN PRN Reason: Insomnia Last Admin: 11/16/20 01:53 Dose: 5 mg Documented by: A/P Narrative A/P Narrative: Assessment: 65 yo female s/p left hemiarthroplasty. ROS: 10 point reviewed and is negative Patient seen and examined this am, awake, alert, conversant. Endorses ambulation to restroom and about the room. Dressing at left lower extremity clean, dry and intact. hemoglobin of 8.7 noted today, but w/o tachycardia, SOB, dizziness, headache, N+V. Both lower extremities warm, well perfused and neuro intact. Stable from ortho standpoint, will defer final disposition to attending hospitalist. Plan is for expected discharge to patients own home where she endorses she already has home health assistance. Time Spent With Patient Time: Total time spent is greater than 50% in coordination of care (as documented) at patient's floor/unit and/or counseling patient:
[2020-11-18] MEDS: ASPIRIN 81 MG TAB.CHEW PO SCH (08:44)
[2020-11-18] MEDS: METOPROLOL TARTRATE 25 MG TABLET PO SCH (08:44)
[2020-11-18] MEDS: NICOTINE 14 MG PATCH TOPICAL SCH (08:45)
[2020-11-18] MEDS: DOCUSATE SODIUM 100 MG CAPSULE PO SCH (08:45)
[2020-11-18] MEDS: ATORVASTATIN 40 MG TABLET PO SCH (08:47)
--- NOTE | 2020-11-18 09:26 | Operative Note ---
DATE OF OPERATION: 11/16/2020 PREOPERATIVE DIAGNOSIS: Markedly displaced Garden IV left femoral neck/subcapital transcervical femoral neck fracture. POSTOPERATIVE DIAGNOSIS: Markedly displaced Garden IV left femoral neck/subcapital transcervical femoral neck fracture. OPERATION PROPOSED: Left hip hemiarthroplasty. OPERATION PERFORMED: Left hip hemiarthroplasty. SURGEON: Kt Siegel M.D. RESIDENTIAL PROPERTY TAX APPRAISER: Tristen Cheema PA-C. The PA's assistance was required for the safe and efficient completion of the entire case. This provider's expertise and technical skill were required throughout the case. The PA assisted with preoperative coordination, intraoperative retraction, wound closure, dressing and splint application, as well as postoperative documentation and care coordination. INDICATIONS: This is a 65-year-old lady with a markedly displaced femoral neck fracture in need of operative treatment. OPERATION IN DETAIL: Informed consent was obtained. She was taken to the operating room where she was provided with appropriate anesthetic and prophylactic antibiotics. She was carefully positioned. Her hip was prepped sterilely. A standard posterior approach to the hip was performed. I dissected through the iliotibial band. I cut and released the short external rotators. The hip capsule was cut and T'd. I then refined the femoral neck cut. I removed the femoral head and sized this. I then sequentially reamed and broached the femoral canal. I cemented in place a size 4 fracture stem from [employer]. This was paired with a size 45 head ball, +1.5 head neck. The short external rotators and hip capsule were repaired. The IT band was repaired with 2-0 inverted deep dermal and logan. The procedure was tolerated well. No complications. The estimated blood loss was 50 mL. GDD:omari Job ID: [id number] Doc ID: [id number] Kt Siegel MD
== END 2020-11-18 14:15 | DRG 522 ==
LOC: ED 19:05 → MEDSUR 22:54
PROVIDERS: ADMIT Internal Medicine; ATTEND Internal Medicine

== ENCOUNTER 2021-07-30 11:17 | Inpatient (IN) ==
[2021-07-30] MEDS ORDERED: morphine 4 MG/ML VIAL IV ONE (12:16)
[2021-07-30] MEDS ORDERED: DEXTROSE 5%-1/2NS 1,000 ML IV SCH (12:30)
--- NOTE | 2021-07-30 12:41 | Emergency Department Note ---
Fall HPI <Justa Marin PA-C - Last Filed: 07/30/21 15:10> General Chief Complaint: Fall Stated Complaint: low BS and fall Time Seen by Provider: 07/30/21 13:03 Source: patient Mode of arrival: ambulatory History of Present Illness HPI Narrative: 65-year-old insulin-dependent diabetic female was found unconscious laying on her back in her hotel room this morning. EMS was called and blood glucose was noted to be 37. She was given IV dextrose, and upon arrival her blood glucose is 120. Patient states that she took 15 units of her short acting insulin for blood glucose over 200 last night and also took 30 units of her long-acting before bed. She woke in the middle of the night and set up on the edge of the bed. She then reached for her walker and recalls sliding from the bed to the floor. She does not think she hit her head. At that point she lost consciousness. She is now complaining of severe right hip pain. Upon arrival her right leg is shortened and externally rotated. She has chronic lower extremity edema, and 3+ pitting edema, which is not new for her. Other past medical history significant for COPD, history of mitral valve repair in 2012 with echo in 2020 showing LVEF of 52% and no hemodynamically significant valvular disease, chronic lower extremity edema, severe peripheral neuropathy, and coronary artery disease. Related Data Home Medications Medication Instructions Recorded Confirmed aspirin 325 mg tablet 325 mg PO .COMPLEX 08/20/19 06/24/21 lidocaine 5 % topical cream 1 applic TOPICAL .COMPLEX 08/20/19 06/24/21 tizanidine 4 mg capsule 4 mg PO .COMPLEX 08/20/19 06/24/21 insulin lispro 100 unit/mL 1 sliding scale dose SUBCUT 04/21/21 06/24/21 subcutaneous pen USEASDIRECTD Previous Rx's Medication Instructions Recorded potassium chloride 20 mEq 20 meq PO BIDCC #10 tab 12/16/17 tablet,extended release(part/cryst) atorvastatin 40 mg tablet 20 mg PO DAILY #30 tab 11/17/20 metoprolol tartrate 25 mg tablet 12.5 mg PO BID #30 tab 11/17/20 hydrocodone 5 mg-acetaminophen 325 1 - 2 tab PO Q6HP PRN #20 tab 11/18/20 mg tablet albuterol sulfate 90 mcg/actuation 2 puff INHALATION Q6H PRN #8.5 g 04/21/21 aerosol inhaler Allergies Allergy/AdvReac Type Severity Reaction Status Date / Time venom-honey bee Allergy Severe Anaphylaxis Verified 06/24/21 11:03 [bee venom (honey bee)] bupropion [From Wellbutrin] Allergy Intermediate Vomiting Verified 06/24/21 11:03 capsaicin AdvReac Mild Hives Verified 06/24/21 11:03 codeine AdvReac Mild Nausea Verified 06/24/21 11:03 minocycline [Minocycline] AdvReac Mild Nausea Verified 06/24/21 11:03 Review of Systems <Justa Marin PA-C - Last Filed: 07/30/21 15:10> ROS ROS Narrative: Narrative: All systems ED: reviewed and negative except as stated. 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) Closed hip fracture (Acute) Pain in right shoulder (Acute) Pain in thoracic spine (Chronic) Age-related osteoporosis with current pathological fracture, vertebra(e), initial encounter for fracture (Chronic) MRSA (methicillin resistant staph aureus) culture positive (Chronic) History of stroke (Chronic) Anxiety (Chronic) COPD (chronic obstructive pulmonary disease) (Chronic) Asthma (Chronic) GERD (gastroesophageal reflux disease) (Chronic) Type 2 diabetes mellitus (Chronic) Osteoarthritis (Chronic) Depression (Chronic) Heart disease (Chronic) Pain in left shoulder (Chronic) Chronic pain (Chronic) Low back pain (Chronic) Radiculopathy, thoracic region (Chronic) Radiculopathy, lumbar region (Chronic) Pain in right shoulder (Chronic) Hyponatremia syndrome (Acute) Nausea & vomiting (Acute) Dyspepsia (Acute) Pancreatitis (Acute) Hypertension (Acute) Hyponatremia (Acute) Urinary tract infection (Acute) Vomiting (Acute) Hyponatremia (Acute) Gastroenteritis (Acute) Water intoxication syndrome (Acute) T12 compression fracture (Acute) Orthostasis (Acute) Pyuria (Acute) Encounter for long-term (current) use of NSAIDs (Acute) Encounter for long-term (current) use of high-risk medication (Chronic) Long-term use of high-risk medication (Acute) Elevated erythrocyte sedimentation rate (Acute) Non-pitting edema (Acute) Suspected UTI (Chronic) Hypokalemia (Chronic) Elevated blood pressure reading without diagnosis of hypertension (Chronic) Deformity of foot (Chronic) Vertigo (Chronic) Low blood pressure (Chronic) Rib pain (Chronic) Vitamin D deficiency (Chronic) Charcot's joint of foot (Chronic) Seasonal allergies (Chronic) Open wound of foot except toes with complication (Chronic) Hypomagnesemia (Chronic) Finger deformity (Chronic) Systolic murmur (Chronic) SOB (shortness of breath) (Chronic) Smoker (Chronic) Arthritis (Chronic) Diabetes mellitus (Chronic) Multiple joint pain (Chronic) Bilateral shoulder pain (Chronic) Bilateral hand pain (Chronic) Ulcer of foot due to diabetes mellitus (Chronic) Tobacco abuse (Chronic) CAD (coronary artery disease) (Chronic) Hx MRSA infection (Chronic) Diabetic neuropathy (Chronic) Hx of myocardial infarction (Chronic) Glaucoma (Chronic) Chronic diarrhea (Chronic) Diabetic ulcer of both feet (Chronic) Orthostatic hypotension (Chronic) Medical History Age-related osteoporosis with current pathological fracture, vertebra(e), initial encounter for fracture Anxiety Arthritis Asthma Bilateral hand pain Bilateral shoulder pain CAD (coronary artery disease) Charcot's joint of foot Chronic diarrhea Chronic pain COPD (chronic obstructive pulmonary disease) Deformity of foot Left Depression Diabetes mellitus Diabetic neuropathy Diabetic ulcer of both feet Dyspepsia Elevated blood pressure reading without diagnosis of hypertension Elevated erythrocyte sedimentation rate Encounter for long-term (current) use of high-risk medication Encounter for long-term (current) use of NSAIDs Finger deformity Bilateral fifth finger GERD (gastroesophageal reflux disease) Glaucoma Heart disease History of stroke Hx MRSA infection Hx of myocardial infarction Hypertension Hypokalemia Hypomagnesemia Hyponatremia Hyponatremia syndrome Inflammatory arthritis Long-term use of high-risk medication Low back pain Low blood pressure MRSA (methicillin resistant staph aureus) culture positive L FOOT 08/29 Multiple joint pain Nausea & vomiting Non-pitting edema foot Open wound of foot except toes with complication Orthostatic hypotension Osteoarthritis Pain in left shoulder Pain in right shoulder Pain in right shoulder Pain in thoracic spine Pancreatitis Pleural plaque without asbestos 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 Bilat w/sed 02/01/20 TESI #1 T11-12 w/sed 02/01/20 TESI #2 T11-12 w/sed 10/31/201908/02 TESI #1 T11-12 w/sed 07/31/201908/02 Shoulder Joint Injection, Naren. w/sed 07/31/201905/03 TESI #2 T11-12 w/sed 05/10/1911/01 TESI #1 T11-12 w/sed 10/19/1808/01 TESI #2 T11-12 w/sed 07/18/1808/01 Shoulder Joint Injection, Bilat w/sed 07/18/1805/02 TESI #1 T11-12 w/sed 04/18/201811/30 Vertebroplasty T12 w/sed 12/08/2017 No pertinent past surgical history Family History Other No pertinent family history Social History Smoking Status: Current every day smoker Alcohol Intake Frequency: does not drink Substance Use: does not use Exam <Justa Marin PA-C - Last Filed: 07/30/21 15:10> Narrative Narrative: General: AOx3, NAD, nontoxic appearing. Pleasant and conversant. HEENT: PERRL, EOMI, normocephalic. Right eye with hemorrhagic conjunctivitis. Dry mucous membranes. Normal facies and normal dentition. Chest: Symmetric, no pain to palpation Respiratory: Lungs rhonchorous throughout the bilateral anterior lung knapp. No respiratory distress. Unlabored breathing. Requiring 3 L oxygen to keep her sats above 92%. Heart: Regular rate and rhythm, no murmurs/clicks/rubs. Abdomen: Non-tender, Non distended, normal bowel tones. No organomegaly. Extremities: Warm and well perfused. Bilateral 3+ pitting lower extremity edema. DP 2+ bilaterally. No venous stasis. Neuro: No focal deficits. Cranial nerves II-XII grossly normal. Moves all fours. Skin: Warm dry, no rashes or lesions, no cyanosis. Psych: Normal mood and affect Heme/Lymph: No abnormal bruising Course <Justa Marin PA-C - Last Filed: 07/30/21 15:10> Course Course Narrative: 65-year-old female with hypoglycemic event and found down in her hotel room pr esents with acute right hip pain Reevaluation(s) Reevaluation #1: Obtain basic labs, monitor blood glucose, give D5 one half normal saline at 50 mL's per hour for maintenance fluids Obtain hip and pelvis x-rays IV analgesics Patients NIHSS is 0. She is cognitively intact and I see no traumatic injury to her head. She is not on anticoagulants. I did not order CT head imaging for this reason. Reevaluation #2: Bilateral hip x-ray shows a right femoral neck fracture, no other acute findings Patient's pain is controlled on fentanyl I have contacted Dr. Valdez and he would like to keep her n.p.o. and take her to the OR tonight Given her comorbidities, I reached out to Dr. Owen for admission Vital Signs Vital signs: Vital Signs Temperature 88.9 F L 07/30/21 11:18 Pulse Rate 82 07/30/21 11:18 Respiratory Rate 20 07/30/21 11:18 Blood Pressure 115/71 07/30/21 11:18 Pulse Oximetry (%) 88 L 07/30/21 11:18 Temperature 97.3 F 07/30/21 15:48 Pulse Rate 63 07/30/21 16:36 Respiratory Rate 21 07/30/21 16:36 Blood Pressure 149/82 07/30/21 16:31 Pulse Oximetry (%) 95 07/30/21 16:36 [facility] <Justa Marin PA-C - Last Filed: 07/30/21 15:10> [facility] Narrative Medical decision making narrative: Right hip fracture Hypoglycemia Insulin-dependent diabetes The patient has been accepted for admission. N.p.o. now and plan is for surgical repair tonight with Dr. Valdez. The patient had a right iliac is nerve block performed by Dr. Carrillo. Please see his note for further details. Lab Data Result diagrams: 07/30/21 12:27 07/30/21 12:27 Labs: Lab Results 07/30/21 07/30/21 07/30/21 Range/Units 12:27 12: 12:27 WBC 8.9 (4.5-11.0) K/mcL RBC 3.26 L (3.59-5.38) M/mcL Hgb 8.0 L (11.2-15.7) g/dL Hct 26.4 L (34.1-44.9) % MCV 81.0 (80.0-100.0) fL MCH 24.5 L (26.0-34.0) pg MCHC 30.3 L (31.0-36.0) g/dL RDW 16.8 H (11.5-14.5) % Plt Count 222 (140-440) K/mcL MPV 8.2 (7.4-10.4) fL Seg Neutrophils % 91 H (38-78) % Band Neutrophils % 1 (0-10) % Lymphocytes % 4 L (15-49) % Monocytes % (Manual) 4 (1-12) % Platelet Estimate Normal (Normal) RBC Morphology Abnormal A (Normal) Polychromasia Occ A (None Seen) Hypochromasia 1+ A (None Seen) Poikilocytosis Few A (None Seen) Anisocytosis 1+ A (None Seen) Ovalocytes Occ A (None Seen) PT (11.9-14.5) sec INR (0.9-1.1) Sodium 131 L (133-145) mmol/L Potassium 4.5 (3.3-5.1) mmol/L Chloride 99 (96-108) mmol/L Carbon Dioxide 21 L (22-30) mmol/L Anion Gap 11.0 (8.0-16.0) BUN 34 H (8-23) mg/dL Creatinine 1.2 H (0.6-1.1) mg/dL GFR Calculation 48 Glucose 107 H (70-105) mg/dL Calcium 8.1 L (8.6-10.4) mg/dL Magnesium (1.6-2.5) mg/dL Total Bilirubin 0.2 (0.1-1.0) mg/dL AST 58 H (<32) U/L ALT 43 H (<40) U/L Alkaline Phosphatase 134 H (39-117) U/L Total Protein 7.1 (5.9-8.4) gm/dL Albumin 3.6 (3.2-5.2) gm/dL Globulin 3.5 (2.2-3.7) gm/dL Albumin/Globulin Ratio 1.0 (1.0-2.3) TSH 0.89 (0.27-5.01) uIU/mL Free T4 (0.93-1.70) ng/dL 07/30/21 07/30/21 07/30/21 Range/Units 12:27 12:27 12:27 WBC (4.5-11.0) K/mcL RBC (3.59-5.38) M/mcL Hgb (11.2-15.7) g/dL Hct (34.1-44.9) % MCV (80.0-100.0) fL MCH (26.0-34.0) pg MCHC (31.0-36.0) g/dL RDW (11.5-14.5) % Plt Count (140-440) K/mcL MPV (7.4-10.4) fL Seg Neutrophils % (38-78) % Band Neutrophils % (0-10) % Lymphocytes % (15-49) % Monocytes % (Manual) (1-12) % Platelet Estimate (Normal) RBC Morphology (Normal) Polychromasia (None Seen) Hypochromasia (None Seen) Poikilocytosis (None Seen) Anisocytosis (None Seen) Ovalocytes (None Seen) PT 14.1 (11.9-14.5) sec INR 1.0 (0.9-1.1) Sodium (133-145) mmol/L Potassium (3.3-5.1) mmol/L Chloride (96-108) mmol/L Carbon Dioxide (22-30) mmol/L Anion Gap (8.0-16.0) BUN (8-23) mg/dL Creatinine (0.6-1.1) mg/dL GFR Calculation Glucose (70-105) mg/dL Calcium (8.6-10.4) mg/dL Magnesium 2.4 (1.6-2.5) mg/dL Total Bilirubin (0.1-1.0) mg/dL AST (<32) U/L ALT (<40) U/L Alkaline Phosphatase (39-117) U/L Total Protein (5.9-8.4) gm/dL Albumin (3.2-5.2) gm/dL Globulin (2.2-3.7) gm/dL Albumin/Globulin Ratio (1.0-2.3) TSH (0.27-5.01) uIU/mL Free T4 1.05 (0.93-1.70) ng/dL ED POC Tests ED POC Tests: ESVIN - SARS Antigen Negative Discharge Plan Patient/Caregiver Discharge Instructions Pt seen by CAMPUS REP/PA only: Yes Clinical Impression: Hypoglycemia associated with type 2 diabetes mellitus, Fracture of hip, right, closed Patient Disposition: Xfer As Inpt ([facility]) Discharge Date/Time: 07/30/21 16:41
[2021-07-30] MEDS ORDERED: ACETAMINOPHEN 325 MG TABLET PO ONE (12:53)
[2021-07-30 13:04] LABS: Hematocrit 26.4 % (34.1-44.9); Mean Corpuscular HGB Conc 30.3 g/dL (31.0-36.0); Mean Platelet Volume 8.2 fL (7.4-10.4); Platelet Count 222 K/mcL (140-440); RBC 3.26 M/mcL (3.59-5.38); Red Cell Distribution Width 16.8 % (11.5-14.5); WBC 8.9 K/mcL (4.5-11.0)
[2021-07-30] MEDS ORDERED: fentaNYL 100 MCG/2 ML VIAL IV PRN ×2 (13:04→18:35)
[2021-07-30] MEDS ORDERED: ACETAMINOPHEN 1,000 MG/100 ML BAG IV ONE ×3 (13:04→19:30)
--- NOTE | 2021-07-30 13:15 | XRay Report ---
CLINICAL INFORMATION: Trauma COMPARISON: 07/09/2021 TECHNIQUE: PA and Lateral views FINDINGS: Moderate cardiomegaly is unchanged. Mitral valve prosthesis in stable position. Sternotomy changes noted. Mediastinum and pulmonary vasculature are normal. Minimal patchy airspace disease in the left lateral midlung and base unchanged and may represent fibrosis. No new pulmonary abnormalities no effusions. IMPRESSION: Stable cardiomegaly and minor airspace disease lateral left midlung and base is unchanged. This is likely fibrosis. No acute posttraumatic change Interpreted and Authenticated by: Cam Quezada 07/30/21
[2021-07-30 13:26] LABS: ALT/SGPT 43 U/L (<40); AST/SGOT 58 U/L (<32); Albumin 3.6 gm/dL (3.2-5.2); Alkaline Phosphatase 134 U/L (39-117); Bilirubin,Total 0.2 mg/dL (0.1-1.0); Blood Urea Nitrogen 34 mg/dL (8-23); Calcium 8.1 mg/dL (8.6-10.4); Carbon Dioxide 21 mmol/L (22-30); Chloride 99 mmol/L (96-108); Globulin 3.5 gm/dL (2.2-3.7); Glomerular Filtration Rate 48; Glucose 107 mg/dL (70-105)
--- NOTE | 2021-07-30 13:30 | XRay Report ---
CLINICAL INFORMATION: Trauma COMPARISON: None. FINDINGS: Acute transcervical fracture of the right hip is appreciated. Moderate coxa vera angulation and mild displacement noted. Left hemiarthroplasty is anatomically aligned without loosening or infection. Soft tissue swelling seen over the surgical site. IMPRESSION: Acute angulated transcervical fracture right hip Interpreted and Authenticated by: Cam Quezada 07/30/21
[2021-07-30 13:34] LABS: Prothrombin Time 14.1 sec (11.9-14.5)
[2021-07-30 13:51] LABS: Anisocytosis 1+ (None Seen); Band Neutrophils % 1 % (0-10); Hypochromasia 1+ (None Seen); Lymphocytes % 4 % (15-49); Monocytes % (Manual) 4 % (1-12); Ovalocytes OCC (None Seen); Platelet Estimate NORMAL (Normal); Poikilocytosis FEW (None Seen); Polychromasia OCC (None Seen); RBC Morphology ABNORMAL (Normal); Segmented Neutrophils % 91 % (38-78)
--- NOTE | 2021-07-30 15:21 | Internal Med History&Physical ---
HPI History of Present Illness Patient information: Note initiated : 07/30/21 at 3:15 pm Service Date, if different from initiated Date: [] Patient: Gina Garber a 65 y/o F admitted on for low BS and fall. Chief Complaint: [] History of present illness: Ms. Garber is a 65 year old F Patient brought in by EMS after she was found unconscious in her hotel room at the [facility]. Has been at the [facility] staying while her apartment and lap weight i s being repaired. Patient typically takes Levemir 25 units twice daily and then she takes short acting Humalog with meals anywhere from 5-15. Last night her blood glucose was 200 so she took a total of 30 of Levemir and she took 15 of Humalog prior to bed. When she woke up in the middle night's at the edge of the bed reaching for a walker and started to pass out as she fell to the floor onto her right side and she does not think she hit her head. She was found to have a blood glucose of 37 by EMS She does have lower extremity edema which she has had for few weeks to months and was started on Lasix by her primary care doctor and she says the swelling is improved significantly, even though still she has 2-3+ pitting. Patient denies chest pain. She has a chronic cough from smoking and she does have a history of COPD but is not on oxygen and does not check her oxygen saturation at home. And here sats were in the 80s and she was put on oxygen. Denies any dyspnea above baseline. Dr. Valdez was contacted for surgical repair of the hip. Review of Systems: Pertinent positives as above. Denies headache/fever/chills/nausea/vomiting/chest or abdominal pain/diarrhea. 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) Closed hip fracture (Acute) Pain in right shoulder (Acute) Pain in thoracic spine (Chronic) Age-related osteoporosis with current pathological fracture, vertebra(e), initial encounter for fracture (Chronic) MRSA (methicillin resistant staph aureus) culture positive (Chronic) History of stroke (Chronic) Anxiety (Chronic) COPD (chronic obstructive pulmonary disease) (Chronic) Asthma (Chronic) GERD (gastroesophageal reflux disease) (Chronic) Type 2 diabetes mellitus (Chronic) Osteoarthritis (Chronic) Depression (Chronic) Heart disease (Chronic) Pain in left shoulder (Chronic) Chronic pain (Chronic) Low back pain (Chronic) Radiculopathy, thoracic region (Chronic) Radiculopathy, lumbar region (Chronic) Pain in right shoulder (Chronic) Hyponatremia syndrome (Acute) Nausea & vomiting (Acute) Dyspepsia (Acute) Pancreatitis (Acute) Hypertension (Acute) Hyponatremia (Acute) Urinary tract infection (Acute) Vomiting (Acute) Hyponatremia (Acute) Gastroenteritis (Acute) Water intoxication syndrome (Acute) T12 compression fracture (Acute) Orthostasis (Acute) Pyuria (Acute) Encounter for long-term (current) use of NSAIDs (Acute) Encounter for long-term (current) use of high-risk medication (Chronic) Long-term use of high-risk medication (Acute) Elevated erythrocyte sedimentation rate (Acute) Non-pitting edema (Acute) Suspected UTI (Chronic) Hypokalemia (Chronic) Elevated blood pressure reading without diagnosis of hypertension (Chronic) Deformity of foot (Chronic) Vertigo (Chronic) Low blood pressure (Chronic) Rib pain (Chronic) Vitamin D deficiency (Chronic) Charcot's joint of foot (Chronic) Seasonal allergies (Chronic) Open wound of foot except toes with complication (Chronic) Hypomagnesemia (Chronic) Finger deformity (Chronic) Systolic murmur (Chronic) SOB (shortness of breath) (Chronic) Smoker (Chronic) Arthritis (Chronic) Diabetes mellitus (Chronic) Multiple joint pain (Chronic) Bilateral shoulder pain (Chronic) Bilateral hand pain (Chronic) Ulcer of foot due to diabetes mellitus (Chronic) Tobacco abuse (Chronic) CAD (coronary artery disease) (Chronic) Hx MRSA infection (Chronic) Diabetic neuropathy (Chronic) Hx of myocardial infarction (Chronic) Glaucoma (Chronic) Chronic diarrhea (Chronic) Diabetic ulcer of both feet (Chronic) Orthostatic hypotension (Chronic) Medical History Age-related osteoporosis with current pathological fracture, vertebra(e), initial encounter for fracture Anxiety Arthritis Asthma Bilateral hand pain Bilateral shoulder pain CAD (coronary artery disease) Charcot's joint of foot Chronic diarrhea Chronic pain COPD (chronic obstructive pulmonary disease) Deformity of foot Left Depression Diabetes mellitus Diabetic neuropathy Diabetic ulcer of both feet Dyspepsia Elevated blood pressure reading without diagnosis of hypertension Elevated erythrocyte sedimentation rate Encounter for long-term (current) use of high-risk medication Encounter for long-term (current) use of NSAIDs Finger deformity Bilateral fifth finger GERD (gastroesophageal reflux disease) Glaucoma Heart disease History of stroke Hx MRSA infection Hx of myocardial infarction Hypertension Hypokalemia Hypomagnesemia Hyponatremia Hyponatremia syndrome Inflammatory arthritis Long-term use of high-risk medication Low back pain Low blood pressure MRSA (methicillin resistant staph aureus) culture positive L FOOT 08/29 Multiple joint pain Nausea & vomiting Non-pitting edema foot Open wound of foot except toes with complication Orthostatic hypotension Osteoarthritis Pain in left shoulder Pain in right shoulder Pain in right shoulder Pain in thoracic spine Pancreatitis Pleural plaque without asbestos 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 Bilat w/sed 02/01/20 TESI #1 T11-12 w/sed 02/01/20 TESI #2 T11-12 w/sed 10/31/201908/02 TESI #1 T11-12 w/sed 07/31/201908/02 Shoulder Joint Injection, Naren. w/sed 07/31/201905/03 TESI #2 T11-12 w/sed 05/10/1911/01 TESI #1 T11-12 w/sed 10/19/1808/01 TESI #2 T11-12 w/sed 07/18/1808/01 Shoulder Joint Injection, Bilat w/sed 07/18/1805/02 TESI #1 T11-12 w/sed 04/18/201811/30 Vertebroplasty T12 w/sed 12/08/2017 No pertinent past surgical history Family History Other No pertinent family history Social History smoking status: Current every day smoker tobacco type: cigarettes per day: 20 smoking status start date: 05/16/1968 alcohol intake frequency: does not drink substance use type: does not use MEDS/ALLERGIES Home Medications and Allergies Home Medications Medication Instructions Recorded Confirmed Type potassium chloride 20 mEq 20 meq PO BIDCC #10 tab 12/16/17 06/24/21 Rx tablet,extended release(part/cryst) aspirin 325 mg tablet 325 mg PO .COMPLEX 08/20/19 06/24/21 History lidocaine 5 % topical cream 1 applic TOPICAL .COMPLEX 08/20/19 06/24/21 History tizanidine 4 mg capsule 4 mg PO .COMPLEX 08/20/19 06/24/21 History atorvastatin 40 mg tablet 20 mg PO DAILY #30 tab 11/17/20 06/24/21 Rx metoprolol tartrate 25 mg tablet 12.5 mg PO BID #30 tab 11/17/20 06/24/21 Rx hydrocodone 5 mg-acetaminophen 325 1 - 2 tab PO Q6HP PRN #20 tab 11/18/20 06/24/21 Rx mg tablet albuterol sulfate 90 mcg/actuation 2 puff INHALATION Q6H PRN #8.5 g 04/21/21 06/24/21 Rx aerosol inhaler insulin lispro 100 unit/mL 1 sliding scale dose SUBCUT 04/21/21 06/24/21 History subcutaneous pen USEASDIRECTD Allergies Allergy/AdvReac Type Severity Reaction Status Date / Time venom-honey bee Allergy Severe Anaphylaxis Verified 06/24/21 11:03 [bee venom (honey bee)] bupropion [From Wellbutrin] Allergy Intermediate Vomiting Verified 06/24/21 11:03 capsaicin AdvReac Mild Hives Verified 06/24/21 11:03 codeine AdvReac Mild Nausea Verified 06/24/21 11:03 minocycline [Minocycline] AdvReac Mild Nausea Verified 06/24/21 11:03 EXAM Constitutional Vitals: Temp Pulse Resp BP Pulse Ox 88.9 F L 66 24 H 137/87 100 07/30/21 11:18 07/30/21 14:35 07/30/21 14:35 07/30/21 14:35 07/30/21 14:35 Exam: General: Alert, Awake, No acute Distress, obese Eyes/N/T: EOMI, PERRL, MMM Head/Neck: neck supple, normocephalic atraumatic CV: RRR, No murmurs, normal s1/s2 Pulm: Clear b/l, no wheezing/rhonchi/rales Abd: soft, nontender, +BS x4 Ext: no clubbing/cyanosis, b/l LE 2-3+ edema Neuro: Alert, no focal deficits, moves all extremities, CN 2-12 grossly intact, sensations intact b/l upper/lower Skin: warm/dry DATA Data Completed and Pending Labs: Labs from last 24 hours 07/30/21 07/30/21 07/30/21 12:27 12:27 12:27 WBC RBC Hgb Hct MCV MCH MCHC RDW Plt Count MPV Seg Neutrophils % Band Neutrophils % Lymphocytes % Monocytes % (Manual) Platelet Estimate RBC Morphology Polychromasia Hypochromasia Poikilocytosis Anisocytosis Ovalocytes PT 14.1 INR 1.0 Sodium Potassium Chloride Carbon Dioxide Anion Gap BUN Creatinine GFR Calculation Glucose Calcium Total Bilirubin AST ALT Alkaline Phosphatase Total Protein Albumin Globulin Albumin/Globulin Ratio TSH 0.89 Free T4 1.05 07/30/21 07/30/21 12:27 12:27 WBC 8.9 RBC 3.26 L Hgb 8.0 L Hct 26.4 L MCV 81.0 MCH 24.5 L MCHC 30.3 L RDW 16.8 H Plt Count 222 MPV 8.2 Seg Neutrophils % 91 H Band Neutrophils % 1 Lymphocytes % 4 L Monocytes % (Manual) 4 Platelet Estimate Normal RBC Morphology Abnormal A Polychromasia Occ A Hypochromasia 1+ A Poikilocytosis Few A Anisocytosis 1+ A Ovalocytes Occ A PT INR Sodium 131 L Potassium 4.5 Chloride 99 Carbon Dioxide 21 L Anion Gap 11.0 BUN 34 H Creatinine 1.2 H GFR Calculation 48 Glucose 107 H Calcium 8.1 L Total Bilirubin 0.2 AST 58 H ALT 43 H Alkaline Phosphatase 134 H Total Protein 7.1 Albumin 3.6 Globulin 3.5 Albumin/Globulin Ratio 1.0 TSH Free T4 A/P Narrative A/P Narrative: A: *Hypoglycemia w/syncopal event: took extra insulin last night without snack -BG 37 *DM: *COPD w/hypoxia (typically does not where O2 but doesn't check O2@home) -Hypoxic on admit at 88% and started on O2, CXR no acute. 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 Valdez for Ortho, -monitor blood glucose closely, restart home insulin at lower dose after surgery and titrate up as needed, SSI -f/u renal fxn -home ASA held for surgery -cont BB/Statin -PT/OT -Smoking cessation counseling -Compression stockings -ppx: SCDs and postop per Ortho full code Time Spent With Patient Time: Total time spent is greater than 50% in coordination of care (as documented) at patient's floor/unit and/or counseling patient: Total time spent with greater than 50% in coordination of care (as documented) at patient's floor/unit and/or counseling patient:: 50 - 70 minutes
[2021-07-30] MEDS ORDERED: DEXTROSE 31 GM ORAL.SUSP PO PRN (16:43)
[2021-07-30] MEDS ORDERED: IPRATROPIUM/ALBUTEROL 3 ML AMPUL.NEB NEB PRN ×2 (16:43→18:35)
[2021-07-30] MEDS ORDERED: ACETAMINOPHEN 325 MG TABLET PO PRN ×2 (16:43→18:42)
[2021-07-30] MEDS ORDERED: SENNOSIDES 1 TABLET PO PRN (16:43)
[2021-07-30] MEDS ORDERED: morphine 4 MG/ML VIAL IV PRN (16:43)
[2021-07-30] MEDS ORDERED: POTASSIUM CHLORIDE 40 MEQ in DEXTROSE 5% IN WATER 500 ML IV PRN (16:43)
[2021-07-30] MEDS ORDERED: POTASSIUM CHLORIDE 20 MEQ TABLET PO PRN ×2 (16:43)
[2021-07-30] MEDS ORDERED: ONDANSETRON 4 MG/2 ML VIAL IV PRN ×4 (16:43→18:42)
[2021-07-30] MEDS ORDERED: DEXTROSE 50% 50 ML VIAL IV PRN (16:43)
[2021-07-30] MEDS ORDERED: METOCLOPRAMIDE 10 MG/2 ML VIAL IV PRN (16:43)
[2021-07-30] MEDS ORDERED: POLYETHYLENE GLYCOL 3350 17 GM PACKET PO PRN ×2 (16:43→18:42)
[2021-07-30] MEDS ORDERED: MAGNESIUM SULFATE 2 GM/50 ML BAG IV PRN (16:43)
[2021-07-30] MEDS ORDERED: HYDROcodone/APAP 5/325MG TABLET PO PRN (16:43)
--- NOTE | 2021-07-30 16:43 | Emergency Department Note ---
HPI General Chief complaint: Fall Stated complaint: low BS and fall Time Seen by Provider: 07/30/21 13:03 Source: patient Mode of arrival: ambulatory Limitations: no limitations History of Present Illness HPI Narrative: Narrative: I supervised GRACE Marin in the care of this patient and am adding this note to document my fascia iliaca block. Related Data Home Medications Medication Instructions Recorded Confirmed aspirin 325 mg tablet 325 mg PO .COMPLEX 08/20/19 06/24/21 lidocaine 5 % topical cream 1 applic TOPICAL .COMPLEX 08/20/19 06/24/21 tizanidine 4 mg capsule 4 mg PO .COMPLEX 08/20/19 06/24/21 insulin lispro 100 unit/mL 1 sliding scale dose SUBCUT 04/21/21 06/24/21 subcutaneous pen USEASDIRECTD Previous Rx's Medication Instructions Recorded potassium chloride 20 mEq 20 meq PO BIDCC #10 tab 12/16/17 tablet,extended release(part/cryst) atorvastatin 40 mg tablet 20 mg PO DAILY #30 tab 11/17/20 metoprolol tartrate 25 mg tablet 12.5 mg PO BID #30 tab 11/17/20 hydrocodone 5 mg-acetaminophen 325 1 - 2 tab PO Q6HP PRN #20 tab 11/18/20 mg tablet albuterol sulfate 90 mcg/actuation 2 puff INHALATION Q6H PRN #8.5 g 04/21/21 aerosol inhaler Allergies Allergy/AdvReac Type Severity Reaction Status Date / Time venom-honey bee Allergy Severe Anaphylaxis Verified 06/24/21 11:03 [bee venom (honey bee)] bupropion [From Wellbutrin] Allergy Intermediate Vomiting Verified 06/24/21 11:03 capsaicin AdvReac Mild Hives Verified 06/24/21 11:03 codeine AdvReac Mild Nausea Verified 06/24/21 11:03 minocycline [Minocycline] AdvReac Mild Nausea Verified 06/24/21 11:03 Review of Systems ROS ROS Narrative: Narrative: PFSH Narrative Patient History Narrative: Narrative: Medical/Surgical/Family History All Active Problems (Updated 07/30/21 @ 15:09 by Justa Marin PA-C) Hypoglycemia associated with type 2 diabetes mellitus (Acute) Fracture of hip, right, closed (Acute) 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) Closed hip fracture (Acute) Pain in right shoulder (Acute) Pain in thoracic spine (Chronic) Age-related osteoporosis with current pathological fracture, vertebra(e), initial encounter for fracture (Chronic) MRSA (methicillin resistant staph aureus) culture positive (Chronic) History of stroke (Chronic) Anxiety (Chronic) COPD (chronic obstructive pulmonary disease) (Chronic) Asthma (Chronic) GERD (gastroesophageal reflux disease) (Chronic) Type 2 diabetes mellitus (Chronic) Osteoarthritis (Chronic) Depression (Chronic) Heart disease (Chronic) Pain in left shoulder (Chronic) Chronic pain (Chronic) Low back pain (Chronic) Radiculopathy, thoracic region (Chronic) Radiculopathy, lumbar region (Chronic) Pain in right shoulder (Chronic) Hyponatremia syndrome (Acute) Nausea & vomiting (Acute) Dyspepsia (Acute) Pancreatitis (Acute) Hypertension (Acute) Hyponatremia (Acute) Urinary tract infection (Acute) Vomiting (Acute) Hyponatremia (Acute) Gastroenteritis (Acute) Water intoxication syndrome (Acute) T12 compression fracture (Acute) Orthostasis (Acute) Pyuria (Acute) Encounter for long-term (current) use of NSAIDs (Acute) Encounter for long-term (current) use of high-risk medication (Chronic) Long-term use of high-risk medication (Acute) Elevated erythrocyte sedimentation rate (Acute) Non-pitting edema (Acute) Suspected UTI (Chronic) Hypokalemia (Chronic) Elevated blood pressure reading without diagnosis of hypertension (Chronic) Deformity of foot (Chronic) Vertigo (Chronic) Low blood pressure (Chronic) Rib pain (Chronic) Vitamin D deficiency (Chronic) Charcot's joint of foot (Chronic) Seasonal allergies (Chronic) Open wound of foot except toes with complication (Chronic) Hypomagnesemia (Chronic) Finger deformity (Chronic) Systolic murmur (Chronic) SOB (shortness of breath) (Chronic) Smoker (Chronic) Arthritis (Chronic) Diabetes mellitus (Chronic) Multiple joint pain (Chronic) Bilateral shoulder pain (Chronic) Bilateral hand pain (Chronic) Ulcer of foot due to diabetes mellitus (Chronic) Tobacco abuse (Chronic) CAD (coronary artery disease) (Chronic) Hx MRSA infection (Chronic) Diabetic neuropathy (Chronic) Hx of myocardial infarction (Chronic) Glaucoma (Chronic) Chronic diarrhea (Chronic) Diabetic ulcer of both feet (Chronic) Orthostatic hypotension (Chronic) Medical History Age-related osteoporosis with current pathological fracture, vertebra(e), initial encounter for fracture Anxiety Arthritis Asthma Bilateral hand pain Bilateral shoulder pain CAD (coronary artery disease) Charcot's joint of foot Chronic diarrhea Chronic pain COPD (chronic obstructive pulmonary disease) Deformity of foot Left Depression Diabetes mellitus Diabetic neuropathy Diabetic ulcer of both feet Dyspepsia Elevated blood pressure reading without diagnosis of hypertension Elevated erythrocyte sedimentation rate Encounter for long-term (current) use of high-risk medication Encounter for long-term (current) use of NSAIDs Finger deformity Bilateral fifth finger GERD (gastroesophageal reflux disease) Glaucoma Heart disease History of stroke Hx MRSA infection Hx of myocardial infarction Hypertension Hypokalemia Hypomagnesemia Hyponatremia Hyponatremia syndrome Inflammatory arthritis Long-term use of high-risk medication Low back pain Low blood pressure MRSA (methicillin resistant staph aureus) culture positive L FOOT 08/29 Multiple joint pain Nausea & vomiting Non-pitting edema foot Open wound of foot except toes with complication Orthostatic hypotension Osteoarthritis Pain in left shoulder Pain in right shoulder Pain in right shoulder Pain in thoracic spine Pancreatitis Pleural plaque without asbestos 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 Bilat w/sed 02/01/20 TESI #1 T11-12 w/sed 02/01/20 TESI #2 T11-12 w/sed 10/31/201908/02 TESI #1 T11-12 w/sed 07/31/201908/02 Shoulder Joint Injection, Naren. w/sed 07/31/201905/03 TESI #2 T11-12 w/sed 05/10/1911/01 TESI #1 T11-12 w/sed 10/19/1808/01 TESI #2 T11-12 w/sed 07/18/1808/01 Shoulder Joint Injection, Bilat w/sed 07/18/1805/02 TESI #1 T11-12 w/sed 04/18/201811/30 Vertebroplasty T12 w/sed 12/08/2017 No pertinent past surgical history Family History Other No pertinent family history Social History Smoking Status: Current every day smoker Alcohol Intake Frequency: does not drink Substance Use: does not use Exam Narrative Narrative: Narrative: General Limitations: no limitations Course Vital Signs Vital signs: Vital Signs Temperature 88.9 F L 07/30/21 11:18 Pulse Rate 82 07/30/21 11:18 Respiratory Rate 20 07/30/21 11:18 Blood Pressure 115/71 07/30/21 11:18 Pulse Oximetry (%) 88 L 07/30/21 11:18 Temperature 97.3 F 07/30/21 15:48 Pulse Rate 66 07/30/21 16:20 Respiratory Rate 17 07/30/21 16:20 Blood Pressure 148/76 07/30/21 16:16 Pulse Oximetry (%) 100 07/30/21 16:20 MDM MDM Narrative Medical decision making narrative: Narrative: Lab Data Result diagrams: 07/30/21 12:27 07/30/21 12:27 Labs: Lab Results 07/30/21 07/30/21 07/30/21 Range/Units 12:27 12:27 12:27 WBC 8.9 (4.5-11.0) K/mcL RBC 3.26 L (3.59-5.38) M/mcL Hgb 8.0 L (11.2-15.7) g/dL Hct 26.4 L (34.1-44.9) % MCV 81.0 (80.0-100.0) fL MCH 24.5 L (26.0-34.0) pg MCHC 30.3 L (31.0-36.0) g/dL RDW 16.8 H (11.5-14.5) % Plt Count 222 (140-440) K/mcL MPV 8.2 (7.4-10.4) fL Seg Neutrophils % 91 H (38-78) % Band Neutrophils % 1 (0-10) % Lymphocytes % 4 L (15-49) % Monocytes % (Manual) 4 (1-12) % Platelet Estimate Normal (Normal) RBC Morphology Abnormal A (Normal) Polychromasia Occ A (None Seen) Hypochromasia 1+ A (None Seen) Poikilocytosis Few A (None Seen) Anisocytosis 1+ A (None Seen) Ovalocytes Occ A (None Seen) PT (11.9-14.5) sec INR (0.9-1.1) Sodium 131 L (133-145) mmol/L Potassium 4.5 (3.3-5.1) mmol/L Chloride 99 (96-108) mmol/L Carbon Dioxide 21 L (22-30) mmol/L Anion Gap 11.0 (8.0-16.0) BUN 34 H (8-23) mg/dL Creatinine 1.2 H (0.6-1.1) mg/dL GFR Calculation 48 Glucose 107 H (70-105) mg/dL Calcium 8.1 L (8.6-10.4) mg/dL Magnesium (1.6-2.5) mg/dL Total Bilirubin 0.2 (0.1-1.0) mg/dL AST 58 H (<32) U/L ALT 43 H (<40) U/L Alkaline Phosphatase 134 H (39-117) U/L Total Protein 7.1 (5.9-8.4) gm/dL Albumin 3.6 (3.2-5.2) gm/dL Globulin 3.5 (2.2-3.7) gm/dL Albumin/Globulin Ratio 1.0 (1.0-2.3) TSH 0.89 (0.27-5.01) uIU/mL Free T4 (0.93-1.70) ng/dL 07/30/21 07/30/21 07/30/21 Range/Units 12:27 12:27 12:27 WBC (4.5-11.0) K/mcL RBC (3.59-5.38) M/mcL Hgb (11.2-15.7) g/dL Hct (34.1-44.9) % MCV (80.0-100.0) fL MCH (26.0-34.0) pg MCHC (31.0-36.0) g/dL RDW (11.5-14.5) % Plt Count (140-440) K/mcL MPV (7.4-10.4) fL Seg Neutrophils % (38-78) % Band Neutrophils % (0-10) % Lymphocytes % (15-49) % Monocytes % (Manual) (1-12) % Platelet Estimate (Normal) RBC Morphology (Normal) Polychromasia (None Seen) Hypochromasia (None Seen) Poikilocytosis (None Seen) Anisocytosis (None Seen) Ovalocytes (None Seen) PT 14.1 (11.9-14.5) sec INR 1.0 (0.9-1.1) Sodium (133-145) mmol/L Potassium (3.3-5.1) mmol/L Chloride (96-108) mmol/L Carbon Dioxide (22-30) mmol/L Anion Gap (8.0-16.0) BUN (8-23) mg/dL Creatinine (0.6-1.1) mg/dL GFR Calculation Glucose (70-105) mg/dL Calcium (8.6-10.4) mg/dL Magnesium 2.4 (1.6-2.5) mg/dL Total Bilirubin (0.1-1.0) mg/dL AST (<32) U/L ALT (<40) U/L Alkaline Phosphatase (39-117) U/L Total Protein (5.9-8.4) gm/dL Albumin (3.2-5.2) gm/dL Globulin (2.2-3.7) gm/dL Albumin/Globulin Ratio (1.0-2.3) TSH (0.27-5.01) uIU/mL Free T4 1.05 (0.93-1.70) ng/dL ED POC Tests ED POC Tests: ESVIN - SARS Antigen Negative Procedures Nerve Block Nerve Block 1: Consent Obtained: verbal consent Time Out Performed: Yes Local Anesthetic: bupivacaine 0.5% Amount of anesthesia used (mL): 30 Side: right Nerve Blocks: femoral Procedure Successful: Yes Patient Tolerated Procedure: well and no complications Complications: none Additional Comments: I explained R/B/A of the procedure to the patient. After obtaining informed consent I completed a manager environmental health and safety US to identify the femoral nerve and fascia iliaca. I then used pressure to dave the site. I prepped the site with alcohol skin prep and anesthetized the skin with 2% lidocaine w/o epi, using 3ml and aspirating prior to injection. I then prepped and draped the area in the usual sterile fashion using chloraprep and a surgical drape. While wearing a sterile gown and gloves I used ultrasound w/ a sterile cover to again identify the femoral nerve and fascia iliaca. Under constant US visualization I introduced a 20 guage spinal needle through the iliac fascia, confirming by feeling the pop and viewing the needle tip. I then aspirated to ensure that there was no intravascular placement. I then injected a wheal and saw fluid surround the femoral nerve. I then instilled 30 ml bupivicaine (a total of 150mg, which is below the max dose for her weight), aspirating around every 5ml to again ensure that there was no intra-vascular delivery. At completion, she had a good amount of medication instilled around the femoral nerve. She tolerated the procedure well w/ no complications and subsequently reported a marked improvement in her pain. Discharge Plan Patient/Caregiver Discharge Instructions Pt seen by [employer]ER/PA only: Yes Clinical Impression: Hypoglycemia associated with type 2 diabetes mellitus, Fracture of hip, right, closed Patient Disposition: Xfer As Inpt ([facility]) Follow up with: Soha Alfaro ARNP [Primary Care Provider] - Prescriptions: No Action lidocaine 5 % cream 1 applic TOPICAL .COMPLEX 0RF Rx Instructions: 1 applic topical UNKNOWN; tizanidine 4 mg capsule 4 mg PO .COMPLEX 0RF Rx Instructions: 4 mg PO UNKNOWN; aspirin 325 mg tablet 325 mg PO .COMPLEX 0RF Rx Instructions: 325 mg PO UNKNOWN; insulin lispro 100 unit/mL insulin pen 1 sliding scale dose subcut USEASDIRECTD 0RF albuterol sulfate 90 mcg/actuation HFA aerosol inhaler 2 puff inhalation Q6H PRN (Reason: shortness of breath or wheezing) Qty: 8.5 3RF potassium chloride 20 MEQ tablet 20 meq PO BIDCC Qty: 10 0RF atorvastatin 40 mg Tablet 20 mg PO DAILY Qty: 30 0RF metoprolol tartrate 25 mg Tablet 12.5 mg PO BID Qty: 30 0RF hydrocodone-acetaminophen 1 TAB tablet 1 - 2 tab PO Q6HP PRN (Reason: Pain) Qty: 20 0RF
[2021-07-30] MEDS ORDERED: SCOPOLAMINE 1 PATCH PATCH TOPICAL PRN (16:49)
[2021-07-30 17:10] LABS: Appearance,Urine CLEAR (Clear); Bacteria,Urine MANY /hpf (0); Bilirubin,Urine Negative (Negative); Color,Urine YELLOW; Culture Indicated,Urine Yes; Glucose,Urine (UA) Negative (Negative); Ketones,Urine Negative (Negative); Leukocyte Esterase,Urine Negative /uL (Negative); Mucus,Urine FEW /hpf; Nitrate,Urine Negative (Negative); Protein,Urine 30 mg/dL (Negative); Specific Gravity,Urine 1.018 (1.000-1.035); Urine Blood Negative (Negative); Urine Hyaline Cast 5 /lph (0-2); Urine RBC 1 /hpf (0-3); Urine Squamous Epithelial Cell 0 /hpf (0-4); Urine WBC 1 /hpf (0-4); Urobilinogen,Urine Negative
[2021-07-30] MEDS ORDERED: ceFAZolin 2 GM in DEXTROSE 5% IN WATER 50 ML IV SCH (17:30)
[2021-07-30 17:31] LABS: Hemoglobin A1C 6.7 % Hgb (4.0-6.0)
[2021-07-30] MEDS ORDERED: DEXAMETHASONE 10 MG/ML VIAL ONE (17:45)
[2021-07-30] MEDS ORDERED: ePHEDrine 50 MG/5 ML SYRINGE (ANEST) IV ONE (17:45)
[2021-07-30] MEDS ORDERED: LIDOCAINE HCL/PF 100 MG/5 ML SYRINGE IV ONE (17:45)
[2021-07-30] MEDS ORDERED: MAGNESIUM SULFATE 2 GM/50 ML BAG IV ONE (17:45)
[2021-07-30] MEDS ORDERED: PROPOFOL 200 MG/20 ML VIAL IV ONE (17:45)
[2021-07-30] MEDS ORDERED: TRANEXAMIC ACID 1,000 MG/10 ML VIAL ONE ×2 (17:45→19:49)
[2021-07-30] MEDS ORDERED: KETAMINE 50 MG/ML Syringe (ANEST) IV ONE (17:45)
[2021-07-30] MEDS ORDERED: diphenhydrAMINE 50 MG/ML VIAL IV PRN (18:35)
[2021-07-30] MEDS ORDERED: BENZOCAINE/MENTHOL 1 LOZENGE PO PRN (18:35)
[2021-07-30] MEDS ORDERED: PROMETHAZINE 25 MG/ML VIAL IV PRN (18:35)
[2021-07-30] MEDS ORDERED: LACTATED RINGERS 250 ML IV PRN (18:35)
[2021-07-30] MEDS ORDERED: NALOXONE HCL 0.4 MG/ML VIAL IV PRN (18:35)
[2021-07-30] MEDS ORDERED: MEPERIDINE 25 MG/ML VIAL IV PRN (18:35)
[2021-07-30] MEDS ORDERED: FLEETS ADULT ENEMA PR PRN (18:42)
[2021-07-30] MEDS ORDERED: MAGNESIUM HYDROXIDE 30 ML ORAL.SUSP PO PRN (18:42)
[2021-07-30] MEDS ORDERED: TRANEXAMIC ACID 1,000 MG/10 ML VIAL IV ONE (18:42)
[2021-07-30] MEDS ORDERED: HYDROmorphone 1 MG/ML SYRINGE IV PRN (18:42)
[2021-07-30] MEDS ORDERED: BISACODYL 10 MG SUPP.RECT PR PRN (18:42)
[2021-07-30] MEDS ORDERED: TEMAZEPAM 15 MG CAPSULE PO PRN (18:42)
[2021-07-30] MEDS ORDERED: LACTATED RINGERS 1,000 ML IV SCH (18:45)
--- NOTE | 2021-07-30 18:47 | Brief Operative Note ---
Brief Operative Note Date of procedure: 07/30/21 Pre-op diagnosis: right femoral neck fracture Post-op diagnosis: same Procedure: right hip josey arthroplasty Grafts/Implants: Yes Anesthesia: GETA Complications: none Surgeon: Kenji Dia Personnel Clerk: Kenneth Rodríguez Estimated blood loss (cc): 50 Specimens Removed/Pathology: none sent Condition: stable Disposition: PACU
[2021-07-30] MEDS ORDERED: PROMETHAZINE 25 MG/ML VIAL IV ONE (19:11)
[2021-07-30] MEDS ORDERED: PROMETHAZINE 25 MG/ML VIAL ONE (19:17)
[2021-07-30] MEDS ORDERED: METOCLOPRAMIDE 10 MG/2 ML VIAL IV ONE (19:34)
[2021-07-30] MEDS: SENNOSIDES 1 TABLET PO SCH (20:27)
[2021-07-30] MEDS: DOCUSATE SODIUM 100 MG CAPSULE PO SCH (20:27)
[2021-07-30] MEDS ORDERED: DOCUSATE SODIUM 100 MG CAPSULE PO SCH (21:00)
[2021-07-30] MEDS: MUPIROCIN OINT 2% 22GM NARES SCH (21:11)
[2021-07-30] MEDS: LACTATED RINGERS 1,000 ML IV SCH (21:11)
[2021-07-30] MEDS: 0.9 % SODIUM CHLORIDE 10 ML SYRINGE IV SCH ×2 (21:11→21:19)
[2021-07-30] MEDS: INSULIN LISPRO 1 UNIT/0.01 ML UNIT SQ SCH ×2 (21:14→21:17)
[2021-07-31] MEDS: ceFAZolin 1 GM VIAL IV SCH ×2 (01:40→09:50)
[2021-07-31] MEDS: HYDROcodone/APAP 10/325MG TABLET PO PRN ×4 (01:51→23:58)
[2021-07-31] MEDS: BENZOCAINE/MENTHOL 1 LOZENGE PO PRN ×2 (01:52→10:43)
--- NOTE | 2021-07-31 02:41 | XRay Report ---
CLINICAL INFORMATION: Right transcervical hip fracture. FINDINGS: The right hip prostheses is anatomically aligned. The left hip prostheses is anatomically aligned without loosening or infection.. There are no osseous abnormalities. Soft tissue swelling over the surgical site-as expected. IMPRESSION: Right hip prostheses in anatomic alignment. Interpreted and Authenticated by: Cam Quezada 07/31/21
[2021-07-31] MEDS: LACTATED RINGERS 1,000 ML IV SCH ×2 (03:58→14:38)
[2021-07-31] MEDS: 0.9 % SODIUM CHLORIDE 10 ML SYRINGE IV SCH ×6 (05:14→21:09)
[2021-07-31 05:49] LABS: Appearance,Urine HAZY (Clear); Bilirubin,Urine Negative (Negative); Color,Urine YELLOW; Culture Indicated,Urine yes; Glucose,Urine (UA) Negative (Negative); Ketones,Urine Negative (Negative); Leukocyte Esterase,Urine 250 /uL (Negative); Mucus,Urine FEW /hpf; Nitrate,Urine Negative (Negative); Protein,Urine 30 mg/dL (Negative); Specific Gravity,Urine 1.018 (1.000-1.035); Urine RBC 67 /hpf (0-3); Urine Squamous Epithelial Cell < 1 /hpf (0-4); Urine WBC 33 /hpf (0-4); Urobilinogen,Urine Negative
[2021-07-31 07:02] LABS: ALT/SGPT 38 U/L (<40); AST/SGOT 56 U/L (<32); Albumin 3.4 gm/dL (3.2-5.2); Alkaline Phosphatase 127 U/L (39-117); Bilirubin,Direct < 0.2 mg/dL (0-0.3); Bilirubin,Total < 0.2 mg/dL (0.1-1.0); Blood Urea Nitrogen 29 mg/dL (8-23); Carbon Dioxide 21 mmol/L (22-30); Chloride 97 mmol/L (96-108); Globulin 3.3 gm/dL (2.2-3.7); Glomerular Filtration Rate 48; Glucose 169 mg/dL (70-105); Lactate Dehydrogenase 262 U/L (135-225); Phosphorous 5.2 mg/dL (2.5-4.5); Triglycerides 52 mg/dL (<150)
--- NOTE | 2021-07-31 07:19 | EKG ---
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
--- NOTE | 2021-07-31 07:26 | Consultation ---
DATE OF CONSULTATION: 07/30/2021 HISTORY OF PRESENT ILLNESS: A 65-year-old with preop history and physical. This is a consultation from the emergency room. This patient sustained a same level fall, had immediate pain, swelling on the right side after a same level fall. She was unable to ambulate and was brought to the Emergency Room where she was appropriately diagnosed with a femoral neck fracture. She had a prior neck fracture on the left. She has been mobile, but difficult to climb stairs and independently living. PAST MEDICAL HISTORY: She is otherwise quite healthy. She does have diabetes for which she has been trying to keep her sugars down, but difficult to manage. MEDICATIONS: The patient's medications that she regularly takes is potassium, atorvastatin 40 mg, metoprolol 25 mg, hydrocodone, periodically albuterol. ALLERGIES: BEE VENOM, BUPROPION, CAPSAICIN, CODEINE, AND MINOCYCLINE. REVIEW OF SYSTEMS: Negative for chest pain or shortness of breath. OTHER MEDICAL PROBLEMS: Type 2 diabetes, prior MRSA, COPD, asthma, reflux, hyponatremia, T12 compression fracture, prior left hip fracture, multiple rib fractures, coronary artery disease, tobacco abuse, glaucoma, diabetic ulcers, orthostatic hypotension. She also includes anxiety, arthritis as other health issues. PHYSICAL EXAMINATION: GENERAL: The patient's physical exam confirms the patient is alert, cooperative. LUNGS: Clear to auscultation. CARDIOVASCULAR: Regular rate and rhythm. No murmurs, rubs or gallops. EXTREMITIES: Hip was shortened and externally rotated. Foot is pink and warm, but swollen. IMAGING: X-rays of the right hip demonstrate a femoral neck fracture, displaced. Treatment will be a cemented hemiarthroplasty. The patient understands the risks and benefits and agrees to proceed, understanding these risks and benefits. KAEH:brandon Job ID: [id number] Doc ID: [id number] Kenji Dia MD
--- NOTE | 2021-07-31 07:26 | Consultation ---
DATE OF CONSULTATION: 07/30/2021 This is a 65-year-old female with admitting diagnosis of right hip injury. HISTORY OF PRESENT ILLNESS: This pleasant 65-year-old was currently residing at the hotel [place] while her bathroom was remodeled at home. She ended up taking a fall, sustaining an impacted femoral neck fracture on the right side. She was taken by EMS to the hospital, evaluated and treated appropriately. Orthopedics were consulted at that time. REVIEW OF SYSTEMS: She denied any head trauma, vision changes, fevers, sweats, chills, headaches, abdominal pain, chest pain, shortness of breath, nausea, vomiting, diarrhea. She did have hip pain and difficulty with bearing any weight on this hip. PAST MEDICAL HISTORY: Includes a history of hypoglycemia, pleural plaquing. She has had prior hip surgery of the left hip, right shoulder pain, thoracic pain, COPD, GERD, type 2 diabetes, osteoarthritis, depression, heart disease, chronic low back pain. She has had dyspepsia, frequent UTIs, Charcot of the foot. She has been a chronic smoker, suffers from osteoarthritis, chronic diarrhea and orthostatic hypotension. The patient also has glaucoma, heart disease, history of stroke, history of MRSA, chronic low back pain. PAST SURGICAL HISTORY: She has had a prior hemiarthroplasty of the left hip. SOCIAL HISTORY: She is a daily smoker. Does not drink alcohol or use illicit drug use. PHYSICAL EXAMINATION: GENERAL: Exam reveals a pleasant, well-developed, well-nourished 65-year-old female, lying comfortably on the exam bed, awake, alert and oriented x3, appears to be in no apparent distress. She had previously a femoral nerve block in the Emergency Department. HEENT: Normocephalic. CHEST: Clear to auscultation. No wheezing, rhonchi, or rales. CARDIAC: Normal sinus rhythm with no gallops, rubs, or murmurs. GASTROINTESTINAL: Abdomen is soft, nontender. EXTREMITIES: The patient had externally rotated right lower extremity. No significant pain due to the femoral nerve block, but also no motor control at this point, nor any ability to assess for her neurologic status. SKIN: The patient did have pink warm skin, otherwise. IMAGING: Imaging review. X-rays reviewed by myself and Dr. Dia demonstrated a right impacted femoral neck fracture. TREATMENT PLAN: We have recommended a right cemented hemiarthroplasty. The benefits, risks, and alternatives of surgery have been discussed with the patient, which include but are not necessary limited to complications of anesthesia, heart attack, stroke and , blood loss that could require blood transfusion with secondary acquisition of HIV, hepatitis or AIDS, injury to adjacent blood vessels or nerves that could result in chronic pain or paresthesias, infection that could also result in future multiple surgeries and/or IV antibiotic therapy and a lengthy duration of rehabilitation is typically 6 to 12 months that could also include a period of rehabilitation in a nursing facility. While these risks have been discussed with the patient, she understands and consents to the procedure as it has been explained to her. BAP:brandon Job ID: [id number] Doc ID: [id number] Kenneth Rodríguez PA-C
[2021-07-31] MEDS: INSULIN LISPRO 1 UNIT/0.01 ML UNIT SQ SCH ×4 (07:33→21:08)
[2021-07-31] MEDS: DOCUSATE SODIUM 100 MG CAPSULE PO SCH ×2 (08:17→21:19)
[2021-07-31] MEDS ORDERED: traZODone HCL 50 MG TABLET PO PRN (08:17)
[2021-07-31] MEDS ORDERED: NITROGLYCERIN 0.4 MG TAB.SUBL SL PRN (08:17)
[2021-07-31] MEDS ORDERED: NITROGLYCERIN 0.1 MG/HR PATCH TOPICAL PRN (08:17)
--- NOTE | 2021-07-31 08:28 | Internal Med Progress Note ---
SUBJECTIVE Subjective Patient information: Note initiated : 07/31/21 at 8:15 am Service Date, if different from initiated Date: [] Patient: Gina Garber a 65 y/o F admitted on 07/30/21 for low BS and fall. Chief Complaint: [] Interval history: History of present illness: Ms. Garber is a 65 year old F Patient brought in by EMS after she was found unconscious in her hotel room at the [facility]. Has been at the [facility] staying while her apartment and lap weight is being repaired. Patient typically takes Levemir 25 units twice daily and then she takes short acting Humalog with meals anywhere from 5-15. Last night her blood glucose was 200 so she took a total of 30 of Levemir and she took 15 of Humalog prior to bed. When she woke up in the middle night's at the edge of the bed reaching for a walker and started to pass out as she fell to the floor onto her right side and she does not think she hit her head. She was found to have a blood glucose of 37 by EMS She does have lower extremity edema which she has had for few weeks to months a nd was started on Lasix by her primary care doctor and she says the swelling is improved significantly, even though still she has 2-3+ pitting. Patient denies chest pain. She has a chronic cough from smoking and she does have a history of COPD but is not on oxygen and does not check her oxygen sat uration at home. And here sats were in the 80s and she was put on oxygen. Denies any dyspnea above baseline. Dr. Valdez was contacted for surgical repair of the hip. 07/31 Status post ORIF yesterday. Home meds clarified and started morning. Blood glucose stable. Very weak on physical activity likely need SNF. Sodium mildly decreased close to baseline, potassium mildly elevated. Not restart home potassium for now. She states she needs her Lasix. Review of Systems: denies headache/fever/chills/nausea/vomiting/chest or abdominal pain/cough/dyspnea/diarrhea. Otherwise see above. Constitutional Vitals: Vital Signs Temp Pulse Resp BP Pulse Ox 98.3 F 83 16 142/68 97 07/31/21 08:00 07/31/21 08:00 07/31/21 08:00 07/31/21 08:00 07/31/21 08:00 Period Temp Pulse Resp BP Sys/Macias Pulse Ox Last 24 Hr 88.9 F-98.7 F 63-91 10-29 88-171/38-117 85-100 Intake and Output 07/30/21 07/31/21 07/31/21 21:59 05:59 13:59 Intake Total 1150 1800 400 Output Total 450 350 250 Balance 700 1450 150 Weight 77.111 kg Intake & Output: Intake & Output 07/30/21 07/31/21 07/31/21 21:59 05:59 13:59 Intake Total 1150 1800 400 Output Total 450 350 250 Balance 700 1450 150 Weight 77.111 kg Intake: IV 150 1000 Lactated Ringers 1,000 ml @ 100 1000 mls/hr IV .Q10H BRITTANIE Rx#: [id number] Ancef 2 gm In Dextrose 5% in 50 Water 50 ml @ 100 mls/hr IV PREOP BRITTANIE Rx#:[id number] Oral 800 400 IV - Manual Only 1000 Output: Urine Catheter Amount 450 350 250 Other: Urine Appearance Clear Clear Clear Dodson Clear Clear Clear Urine Color Bright Yellow Bright Yellow Bright Yellow Dodson Bright Yellow Bright Yellow Bright Yellow Exam: General: Alert, Awake, No acute Distress, obese Eyes/N/T: EOMI, Head/Neck: neck supple, CV: RRR, No murmurs, Pulm: Clear b/l, no wheezing/rhonchi/rales Abd: soft, nontender, +BS x4 Ext: no clubbing/cyanosis, b/l LE 2-3+ edema Neuro: Alert, no focal deficits, moves all extremities, Skin: warm/dry OBJ DATA Labs CBC & Chem 7: 07/31/21 05:17 07/31/21 05:17 Labs: Abnormal Lab Results 07/31/21 07/31/21 07/31/21 05:17 05:17 03:07 RBC Hgb Hct 24.1 L MCH MCHC RDW Seg Neutrophils % Lymphocytes % RBC Morphology Polychromasia Hypochromasia Poikilocytosis Anisocytosis Ovalocytes Sodium 129 L Potassium 5.6 H Carbon Dioxide 21 L BUN 29 H Creatinine 1.2 H Glucose 169 H Hemoglobin A1c Calcium 8.0 L Phosphorus 5.2 H Magnesium 2.6 H GGT 66 H AST 56 H ALT Alkaline Phosphatase 127 H Lactate Dehydrogenase 262 H Urine Appearance Hazy A Urine Protein 30 A Ur Leukocyte Esterase 250 A Urine RBC 67 H Urine WBC 33 H Urine Bacteria Hyaline Casts Urine Mucus Few A 07/30/21 07/30/21 07/30/21 16:43 16:29 12:27 RBC Hgb Hct MCH MCHC RDW Seg Neutrophils % Lymphocytes % RBC Morphology Polychromasia Hypochromasia Poikilocytosis Anisocytosis Ovalocytes Sodium 131 L Potassium Carbon Dioxide 21 L BUN 34 H Creatinine 1.2 H Glucose 107 H Hemoglobin A1c 6.7 H Calcium 8.1 L Phosphorus Magnesium GGT AST 58 H ALT 43 H Alkaline Phosphatase 134 H Lactate Dehydrogenase Urine Appearance Urine Protein 30 A Ur Leukocyte Esterase Urine RBC Urine WBC Urine Bacteria Many A Hyaline Casts 5 H Urine Mucus Few A 07/30/21 12:27 RBC 3.26 L Hgb 8.0 L Hct 26.4 L MCH 24.5 L MCHC 30.3 L RDW 16.8 H Seg Neutrophils % 91 H Lymphocytes % 4 L RBC Morphology Abnormal A Polychromasia Occ A Hypochromasia 1+ A Poikilocytosis Few A Anisocytosis 1+ A Ovalocytes Occ A Sodium Potassium Carbon Dioxide BUN Creatinine Glucose Hemoglobin A1c Calcium Phosphorus Magnesium GGT AST ALT Alkaline Phosphatase Lactate Dehydrogenase Urine Appearance Urine Protein Ur Leukocyte Esterase Urine RBC Urine WBC Urine Bacteria Hyaline Casts Urine Mucus Meds: Medications Acetaminophen (Acetaminophen 325 Mg Tablet) 650 mg PO Q6HP PRN; Protocol PRN Reason: Per Pain Protocol/Fever > 101 Hydrocodone Bitart/Acetaminophen (Hydrocodone/Apap 10/325mg Tablet) 1 - 2 tab PO Q4HP PRN; Protocol PRN Reason: Per Pain Protocol Last Admin: 07/31/21 01:51 Dose: 1 tab Documented by: Albuterol/Ipratropium (Ipratropium/Albuterol 3 Ml Ampul.Neb) 3 ml NEB Q4HP PRN PRN Reason: Shortness Of Breath Bisacodyl (Bisacodyl 10 Mg Supp.Rect) 10 mg AZ Q2-3DAYS PRN PRN Reason: Constipation Cefazolin Sodium (Cefazolin 1 Gm Vial) 2 gm IV Q8H BRITTANIE; Protocol Stop: 07/31/21 09:31 Last Admin: 07/31/21 01:40 Dose: 2 gm Documented by: Dextrose (Dextrose 50% 50 Ml Vial) 0 ml IV UD PRN PRN Reason: Per Sliding Scale Diagnostic Test (Pha) (Accu-Chek 1 Each Strip) 1 each FS Q4 [facility] Last Admin: 07/31/21 07:28 Dose: 1 each Documented by: Docusate Sodium (Docusate Sodium 100 Mg Capsule) 100 mg PO BID [facility] Last Admin: 07/30/21 20:27 Dose: Not Given Documented by: Glucose (Dextrose 31 Gm Oral.Susp) 15 gm PO PRN PRN PRN Reason: Hypoglycemia Hydromorphone HCl (Hydromorphone 1 Mg/Ml Syringe) 0.5 - 2 mg IV Q2HP PRN; Protocol PRN Reason: Per Pain Protocol Potassium Chloride 40 meq/ (Dextrose) 520 mls @ 130 mls/hr IV UD PRN PRN Reason: Potassium < 3 Magnesium Sulfate (Magnesium Sulfate) 2 gm in 50 mls @ 50 mls/hr IV UD PRN PRN Reason: Magnesium </= 1.6 Lactated Ringer's (Lactated Ringers) 1,000 mls @ 100 mls/hr IV .Q10H [facility] Last Admin: 07/31/21 03:58 Dose: Not Given Documented by: Insulin Human Lispro (Insulin Lispro 1 Unit/0.01 Ml Unit) 0 unit SQ ACHS [facility]; Protocol Last Admin: 07/31/21 07:33 Dose: 2 units Documented by: Magnesium Hydroxide (Magnesium Hydroxide 30 Ml Oral.Susp) 30 ml PO BIDP PRN PRN Reason: Constipation Metoclopramide HCl (Metoclopramide 10 Mg/2 Ml Vial) 10 mg IV Q6HP PRN PRN Reason: Nausea And Vomiting Morphine Sulfate (Morphine 4 Mg/Ml Vial) 0 mg IV Q3HP PRN PRN Reason: Pain Mupirocin (Mupirocin Oint 2% 22gm) 1 dose NARES BID [facility] Last Admin: 07/30/21 21:11 Dose: 1 dose Documented by: Nicotine (Nicotine 21 Mg Patch) 21 mg TOPICAL DAILY@1000 BRITTANIE Ondansetron HCl (Ondansetron 4 Mg/2 Ml Vial) 4 mg IV Q4HP PRN PRN Reason: Nausea And Vomiting Last Admin: 07/30/21 19:00 Dose: 4 mg Documented by: Polyethylene Glycol (Polyethylene Glycol 3350 17 Gm Packet) 17 gm PO DAILYP PRN PRN Reason: Constipation Potassium Chloride (Potassium Chloride 20 Meq Tablet) 40 meq PO UD PRN PRN Reason: Potssium is 3-3.5 Potassium Chloride (Potassium Chloride 20 Meq Tablet) 40 meq PO UD PRN PRN Reason: Potassium < 3 Senna (Sennosides 1 Tablet) 2 tab PO DAILYP PRN PRN Reason: Constipation Senna (Sennosides 1 Tablet) 2 tab PO HS [facility] Last Admin: 07/30/21 20:27 Dose: Not Given Documented by: Sodium Biphosphate/Sodium Phosphate (Fleets Adult Enema) 1 dose [place] Q3-4DAYS PRN PRN Reason: Constipation Sodium Chloride (0.9 % Sodium Chloride 10 Ml Syringe) 10 ml IV Q8 [facility] Last Admin: 07/31/21 05:14 Dose: 10 ml Documented by: Sodium Chloride (0.9 % Sodium Chloride 10 Ml Syringe) 10 ml IV Q8 [facility] Last Admin: 07/31/21 05:15 Dose: Not Given Documented by: Temazepam (Temazepam 15 Mg Capsule) 15 mg PO HSP PRN PRN Reason: Insomnia Throat Lozenges (Benzocaine/Menthol 1 Lozenge) 1 lozenge PO PRN PRN PRN Reason: Sore Throat Last Admin: 07/31/21 01:52 Dose: 1 lozenge Documented by: A/P Narrative A/P Narrative: A: *Right Hip Fx: s/p ORIF (07/30) *Hypoglycemia w/syncopal event: took extra insulin last night without snack -BG 37 *DM: A1c 6.7 *COPD w/hypoxia (typically does not where O2 but doesn't check O2@home) -Hypoxic on admit at 88% and started on O2, CXR no acute. No tachycardia or unilateral leg swelling *?LUIS DANIEL on likely III: *UTI: currently on perioperative abx *Anemia, chronic: *Hyponatremia, chronic: Patient says she takes pzrh-cuj-miegfau salt tabs *Hyperkalemia: *CAD w/cabg *h/o diastolic (II) CHF: *Peripheral edema: *Hypothyroidism: *Tobacco abuse: *GERD: P: -Dr. Valdez for Ortho, -monitor blood glucose closely, restarted home insulin at lower dose and titrate up as needed, SSI -f/u renal fxn, sodium/potassium, kayex -cont home lasix, IV dose today -monitor i/o's, weights. -cont norvasc/BB/Statin -f/u UC -PT/OT -wean o2, may need home o2 for copd, f/u cxr -Smoking cessation counseling -Compression stockings/elevate legs -ppx: ASA bid SCDs and postop per Ortho / home ppi full code Time Spent With Patient Time: Total time spent is greater than 50% in coordination of care (as documented) at patient's floor/unit and/or counseling patient: Total time spent with greater than 50% in coordination of care (as documented) at patient's floor/unit and/or counseling patient:: 35 - 50 minutes QUALITY VTE Deep Vein Thrombosis/Pulmonary Embolism Present on Admission: No
[2021-07-31] MEDS ORDERED: LIDOCAINE 5% TOPICAL SCH (08:30)
[2021-07-31] MEDS ORDERED: TIZANIDINE 4 MG PO SCH (08:30)
--- NOTE | 2021-07-31 08:40 | Operative Note ---
DATE OF OPERATION: 07/30/2021 PREOPERATIVE DIAGNOSIS: Right femoral neck fracture, displaced. POSTOPERATIVE DIAGNOSIS: Right femoral neck fracture, displaced. PROCEDURE: Right cemented hemiarthroplasty. SURGEON: Kenji Dia M.D. CABLE TELEVISION TECHNICIAN: Kenneth Rodríguez PA-C. This providers expertise and technical skill were required throughout the case. The [facility] assisted with preoperative coordination, intraoperative retraction, wound closure, and dressing and splint application, as well as postoperative documentation and care coordination. ANESTHESIA: General LMA anesthesia. COMPLICATIONS: None. ESTIMATED BLOOD LOSS: Less than 50 mL. IMPLANTS: Size 5 cemented stem, 10 mm distal centralizer, a +4 neck length with a 45 mm unipolar head. IMPLANTS: Rani implants DESCRIPTION OF PROCEDURE: The patient was brought to the operating room, put to sleep with general LMA anesthesia. Preoperative antibiotics confirmed given and tranexamic acid. A timeout was performed, confirming the right hip as the operative site by initials, consent form, and x-rays. A superior approach was performed through a 3 inch incision, the gluteus colten fibers with a Charnley retractor placed. I released the superior capsule, which included the piriformis and obturator internus. This was tagged and retracted. We then identified the fracture site and using a Tim retractor, we assisted with dislocating the ball and making a new neck cut to 15 mm proximal to the lesser trochanter. Once done, and the bony fragments were removed from the acetabulum and the femoral neck, we then used the lateralizing reamer and broached up to a size 5 stem. A size 5 stem in 15 degrees of anteversion with a +4 neck length was the most appropriate given the measurements compared to her other leg. This seemed to fit very well with full range of motion. We irrigated thoroughly and then cemented into place a size 5 stem with a canal restrictor, a distal centralizer 10 mm and a size 5 cemented stem. The stem was placed at 15 degrees of anteversion and once cement was hard, we then placed the final implant, which is a unipolar 45 mm ball with a +4 neck length. This was reduced. We retested the range of motion, which was excellent. We then closed the capsule with #1 Ethibond, closed the skin with Stratafix and adhesive closure. Sterile bandage was applied. . BOBO:vijay Job ID: [id number] Doc ID: [id number] Kenji Dia MD
[2021-07-31] MEDS: GABAPENTIN 300 MG CAPSULE PO SCH ×2 (08:41→21:08)
[2021-07-31] MEDS: LEVOTHYROXINE 25 MCG TABLET PO SCH (08:41)
[2021-07-31] MEDS: ATORVASTATIN 20 MG TABLET PO SCH (08:41)
[2021-07-31] MEDS: OMEPRAZOLE 20 MG CAPSULE PO SCH ×2 (08:41→16:33)
[2021-07-31] MEDS: METOPROLOL TARTRATE 25 MG TABLET PO SCH ×2 (08:42→21:08)
[2021-07-31] MEDS: amLODIPine 5 MG TABLET PO SCH (08:42)
[2021-07-31] MEDS: SERTRALINE 50 MG TABLET PO SCH (08:42)
[2021-07-31] MEDS: FUROSEMIDE 20 MG TABLET PO SCH ×2 (08:42→21:08)
[2021-07-31] MEDS: NICOTINE 21 MG PATCH TOPICAL SCH (09:55)
[2021-07-31] MEDS: MUPIROCIN OINT 2% 22GM NARES SCH ×2 (09:57→21:13)
[2021-07-31] MEDS: INSULIN DETEMIR 100 UNIT/ML SUB-Q SCH ×2 (10:01→21:08)
[2021-07-31] MEDS ORDERED: SODIUM POLYSTYRENE SULFONATE 15 GM/60 ML SUSPENSION PO ONE (10:09)
[2021-07-31] MEDS ORDERED: FUROSEMIDE 40 MG/4 ML VIAL IV ONE (10:09)
[2021-07-31] MEDS: ASPIRIN 81 MG TAB.CHEW CHEWED SCH ×2 (10:36→21:08)
--- NOTE | 2021-07-31 10:41 | XRay Report ---
CLINICAL INFORMATION: Hypoxia. Trauma COMPARISON: 07/30/2021 TECHNIQUE: Portable FINDINGS: Moderate cardiomegaly is unchanged. Mitral valve prosthesis in stable position. Sternotomy changes noted. Mediastinum and pulmonary vasculature are normal. Minimal patchy airspace disease in the left lateral midlung and base unchanged and may represent fibrosis. No new pulmonary abnormalities no effusions. IMPRESSION: Stable cardiomegaly and minor airspace disease lateral left midlung and base is unchanged. This is likely fibrosis. No acute posttraumatic change Interpreted and Authenticated by: Cam Quezada 07/31/21
[2021-07-31 12:06] LABS: Sodium, Urine Random 45 mmol/L
[2021-07-31 12:07] LABS: Osmolality,Urine 433 mOSM/kg (80-1000)
[2021-07-31] MEDS ORDERED: LOPERAMIDE 2 MG CAPSULE PO PRN (14:25)
[2021-07-31] MEDS: METHOCARBAMOL 750 MG TABLET PO PRN (15:30)
[2021-07-31] MEDS ORDERED: POTASSIUM CHLORIDE 20 MEQ TABLET PO SCH (17:30)
[2021-07-31] MEDS: LATANOPROST OPHTH DROPS 2.5ML BOTTLE OU SCH (21:07)
[2021-07-31] MEDS: SENNOSIDES 1 TABLET PO SCH (21:08)
[2021-07-31] MEDS ORDERED: FUROSEMIDE 20 MG/2 ML VIAL IV ONE ×2 (22:17→22:32)
[2021-08-01] MEDS: METHOCARBAMOL 750 MG TABLET PO PRN ×2 (01:59→16:01)
[2021-08-01] MEDS: 0.9 % SODIUM CHLORIDE 10 ML SYRINGE IV SCH ×5 (04:18→21:00)
[2021-08-01] MEDS: HYDROcodone/APAP 10/325MG TABLET PO PRN ×4 (04:18→21:00)
[2021-08-01 06:59] LABS: ALT/SGPT 14 U/L (<40); AST/SGOT 38 U/L (<32); Albumin 3.2 gm/dL (3.2-5.2); Alkaline Phosphatase 125 U/L (39-117); Bilirubin,Direct < 0.2 mg/dL (0-0.3); Bilirubin,Total 0.2 mg/dL (0.1-1.0); Blood Urea Nitrogen 34 mg/dL (8-23); Calcium 7.8 mg/dL (8.6-10.4); Carbon Dioxide 24 mmol/L (22-30); Chloride 97 mmol/L (96-108); Globulin 3.2 gm/dL (2.2-3.7); Glomerular Filtration Rate 43; Glucose 76 mg/dL (70-105); Lactate Dehydrogenase 244 U/L (135-225); Phosphorous 5.3 mg/dL (2.5-4.5); Triglycerides 47 mg/dL (<150); Uric Acid 7.9 mg/dL (2.5-8.0)
[2021-08-01] MEDS: INSULIN LISPRO 1 UNIT/0.01 ML UNIT SQ SCH ×4 (07:49→20:59)
[2021-08-01] MEDS: OMEPRAZOLE 20 MG CAPSULE PO SCH ×2 (07:49→16:01)
[2021-08-01] MEDS: LEVOTHYROXINE 25 MCG TABLET PO SCH (07:49)
[2021-08-01] MEDS: NICOTINE 21 MG PATCH TOPICAL SCH (09:22)
[2021-08-01] MEDS: ASPIRIN 81 MG TAB.CHEW CHEWED SCH ×2 (09:23→20:58)
[2021-08-01] MEDS: amLODIPine 5 MG TABLET PO SCH (09:24)
[2021-08-01] MEDS: GABAPENTIN 300 MG CAPSULE PO SCH ×2 (09:25→20:58)
[2021-08-01] MEDS: METOPROLOL TARTRATE 25 MG TABLET PO SCH ×2 (09:26→20:59)
[2021-08-01] MEDS: SERTRALINE 50 MG TABLET PO SCH (09:27)
[2021-08-01] MEDS: MUPIROCIN OINT 2% 22GM NARES SCH ×2 (09:27→20:58)
[2021-08-01] MEDS: ATORVASTATIN 20 MG TABLET PO SCH (09:27)
[2021-08-01] MEDS: DOCUSATE SODIUM 100 MG CAPSULE PO SCH ×2 (09:27→20:58)
[2021-08-01] MEDS: INSULIN DETEMIR 100 UNIT/ML SUB-Q SCH ×2 (09:38→20:59)
[2021-08-01] MEDS: FUROSEMIDE 20 MG TABLET PO SCH ×2 (09:39→20:59)
--- NOTE | 2021-08-01 10:47 | Orthopedic Progress Note ---
SUBJECTIVE Subjective Patient information: Note initiated : 08/01/21 at 10:41 am Service Date, if different from initiated Date: [] Patient: Gina Garber 65 y/o F admitted on 07/30/21 for low BS and fall. Chief Complaint: [minimal hip pain] Principal diagnosis: total hip Constitutional Vitals: Vital Signs Temp Pulse Resp BP Pulse Ox 96.9 F L 72 16 128/65 95 08/01/21 07:46 08/01/21 07:46 08/01/21 07:46 08/01/21 07:46 08/01/21 09:59 Period Temp Pulse Resp BP Sys/Macias Pulse Ox Last 24 Hr 96.8 F-97.9 F 66-81 15-20 113-139/51-90 89-100 Intake and Output 07/31/21 08/01/21 08/01/21 21:59 05:59 13:59 Intake Total 600 Output Total 1150 800 Balance -550 -800 Weight 184 lb 3.2 oz Intake & Output: Intake & Output 07/31/21 08/01/21 08/01/21 21:59 05:59 13:59 Intake Total 600 Output Total 1150 800 Balance -550 -800 Weight 184 lb 3.2 oz Intake: Oral 600 Output: Urine Catheter Amount 1150 800 Other: Meal Dinner Breakfast Percent of Meal Consumed 100% 75% Feeding Ability Independent Urine Appearance Clear Dodson Clear Urine Color Pale Dodson Pale Stool Size Large Stool Color Yellow Alen Colored Stool Consistency Soft Loose # Bowel Movements 2 General appearance: no acute distress and thin Expanded Lower Extremity Exam Hip exam: Present swelling Lower leg exam: Present swelling Gait: Present observed and limited by pain OBJ DATA Labs CBC & Chem 7: 08/03/21 05:35 08/03/21 05:35 Labs: Abnormal Lab Results 08/01/21 07/31/21 07/31/21 05:27 05:17 05:17 RBC Hgb Hct 24.1 L MCH MCHC RDW Seg Neutrophils % Lymphocytes % RBC Morphology Polychromasia Hypochromasia Poikilocytosis Anisocytosis Ovalocytes Sodium 129 L 129 L Potassium 5.4 H 5.6 H Carbon Dioxide 21 L BUN 34 H 29 H Creatinine 1.3 H 1.2 H Glucose 169 H Hemoglobin A1c Calcium 7.8 L 8.0 L Phosphorus 5.3 H 5.2 H Magnesium 2.6 H GGT 65 H 66 H AST 38 H 56 H ALT Alkaline Phosphatase 125 H 127 H Lactate Dehydrogenase 244 H 262 H Urine Appearance Urine Protein Ur Leukocyte Esterase Urine RBC Urine WBC Urine Bacteria Hyaline Casts Urine Mucus 07/31/21 07/30/21 07/30/21 03:07 16:43 16:29 RBC Hgb Hct MCH MCHC RDW Seg Neutrophils % Lymphocytes % RBC Morphology Polychromasia Hypochromasia Poikilocytosis Anisocytosis Ovalocytes Sodium Potassium Carbon Dioxide BUN Creatinine Glucose Hemoglobin A1c 6.7 H Calcium Phosphorus Magnesium GGT AST ALT Alkaline Phosphatase Lactate Dehydrogenase Urine Appearance Hazy A Urine Protein 30 A 30 A Ur Leukocyte Esterase 250 A Urine RBC 67 H Urine WBC 33 H Urine Bacteria Many A Hyaline Casts 5 H Urine Mucus Few A Few A 07/30/21 07/30/21 12:27 12:27 RBC 3.26 L Hgb 8.0 L Hct 26.4 L MCH 24.5 L MCHC 30.3 L RDW 16.8 H Seg Neutrophils % 91 H Lymphocytes % 4 L RBC Morphology Abnormal A Polychromasia Occ A Hypochromasia 1+ A Poikilocytosis Few A Anisocytosis 1+ A Ovalocytes Occ A Sodium 131 L Potassium Carbon Dioxide 21 L BUN 34 H Creatinine 1.2 H Glucose 107 H Hemoglobin A1c Calcium 8.1 L Phosphorus Magnesium GGT AST 58 H ALT 43 H Alkaline Phosphatase 134 H Lactate Dehydrogenase Urine Appearance Urine Protein Ur Leukocyte Esterase Urine RBC Urine WBC Urine Bacteria Hyaline Casts Urine Mucus Meds: Medications Acetaminophen (Acetaminophen 325 Mg Tablet) 650 mg PO Q6HP PRN; Protocol PRN Reason: Per Pain Protocol/Fever > 101 Hydrocodone Bitart/Acetaminophen (Hydrocodone/Apap 10/325mg Tablet) 1 - 2 tab PO Q4HP PRN; Protocol PRN Reason: Per Pain Protocol Last Admin: 08/01/21 09:24 Dose: 2 tab Documented by: Albuterol/Ipratropium (Ipratropium/Albuterol 3 Ml Ampul.Neb) 3 ml NEB Q4HP PRN PRN Reason: Shortness Of Breath Last Admin: 07/31/21 20:29 Dose: 3 ml Documented by: Amlodipine Besylate (Amlodipine 5 Mg Tablet) 5 mg PO QDAY BRITTANIE Last Admin: 08/01/21 09:24 Dose: 5 mg Documented by: Aspirin (Aspirin 81 Mg Tab.Chew) 81 mg CHEWED BID [facility] Last Admin: 08/01/21 09:23 Dose: 81 mg Documented by: Atorvastatin Calcium (Atorvastatin 20 Mg Tablet) 20 mg PO DAILY [facility] Last Admin: 08/01/21 09:27 Dose: 20 mg Documented by: Bisacodyl (Bisacodyl 10 Mg Supp.Rect) 10 mg [place] Q2-3DAYS PRN PRN Reason: Constipation Dextrose (Dextrose 50% 50 Ml Vial) 0 ml IV UD PRN PRN Reason: Per Sliding Scale Diagnostic Test (Pha) (Accu-Chek 1 Each Strip) 1 each FS QID [facility] Last Admin: 08/01/21 07:50 Dose: 1 each Documented by: Docusate Sodium (Docusate Sodium 100 Mg Capsule) 100 mg PO BID [facility] Last Admin: 08/01/21 09:27 Dose: Not Given Documented by: Furosemide (Furosemide 20 Mg Tablet) 20 mg PO BID [facility] Last Admin: 08/01/21 09:39 Dose: 20 mg Documented by: Gabapentin (Gabapentin 300 Mg Capsule) 300 mg PO BID [facility] Last Admin: 08/01/21 09:25 Dose: 300 mg Documented by: Glucose (Dextrose 31 Gm Oral.Susp) 15 gm PO PRN PRN PRN Reason: Hypoglycemia Hydromorphone HCl (Hydromorphone 1 Mg/Ml Syringe) 0.5 - 2 mg IV Q2HP PRN; Protocol PRN Reason: Per Pain Protocol Potassium Chloride 40 meq/ (Dextrose) 520 mls @ 130 mls/hr IV UD PRN PRN Reason: Potassium < 3 Magnesium Sulfate (Magnesium Sulfate) 2 gm in 50 mls @ 50 mls/hr IV UD PRN PRN Reason: Magnesium </= 1.6 Insulin Human Lispro (Insulin Lispro 1 Unit/0.01 Ml Unit) 0 unit SQ ACHS [facility]; Protocol Last Admin: 08/01/21 07:49 Dose: Not Given Documented by: Latanoprost (Latanoprost Ophth Drops 2.5ml Bottle) 1 gtt OU HS [facility] Last Admin: 07/31/21 21:07 Dose: 1 gtt Documented by: Levothyroxine Sodium (Levothyroxine 25 Mcg Tablet) 25 mcg PO QAMAC [facility] Last Admin: 08/01/21 07:49 Dose: 25 mcg Documented by: Loperamide HCl (Loperamide 2 Mg Capsule) 2 mg PO PRN PRN PRN Reason: Diarrhea Last Admin: 07/31/21 14:40 Dose: 2 mg Documented by: Magnesium Hydroxide (Magnesium Hydroxide 30 Ml Oral.Susp) 30 ml PO BIDP PRN PRN Reason: Constipation Methocarbamol (Methocarbamol 750 Mg Tablet) 750 - 1,500 mg PO HSP PRN PRN Reason: Muscle Spasm Last Admin: 08/01/21 01:59 Dose: 750 mg Documented by: Metoclopramide HCl (Metoclopramide 10 Mg/2 Ml Vial) 10 mg IV Q6HP PRN PRN Reason: Nausea And Vomiting Metoprolol Tartrate (Metoprolol Tartrate 25 Mg Tablet) 12.5 mg PO BID [facility] Last Admin: 08/01/21 09:26 Dose: 12.5 mg Documented by: Morphine Sulfate (Morphine 4 Mg/Ml Vial) 0 mg IV Q3HP PRN PRN Reason: Pain Mupirocin (Mupirocin Oint 2% 22gm) 1 dose NARES BID [facility] Last Admin: 08/01/21 09:27 Dose: 1 dose Documented by: Nicotine (Nicotine 21 Mg Patch) 21 mg TOPICAL DAILY@1000 [facility] Last Admin: 08/01/21 09:22 Dose: 21 mg Documented by: Nitroglycerin (Nitroglycerin 0.4 Mg Tab.Subl) 0.4 mg SL Q5M PRN PRN Reason: Chest Pain Omeprazole ([facility] Mg [facility]apsule) [facility] Last Admin: 08/01/21 07:49 Dose: 40 mg Documented by: Ondansetron HCl (Ondansetron 4 Mg/2 Ml Vial) 4 mg IV Q4HP PRN PRN Reason: Nausea And Vomiting Last Admin: 07/30/21 19:00 Dose: 4 mg Documented by: Insulin Detemir [ Levemir U-100 Insulin] 100 Unit/Ml Pen 15 dose SUB-Q BID [facility] Last Admin: 08/01/21 09:38 Dose: 15 dose Documented by: Polyethylene Glycol (Polyethylene Glycol 3350 17 Gm Packet) 17 gm PO DAILYP PRN PRN Reason: Constipation Potassium Chloride (Potassium Chloride 20 Meq Tablet) 40 meq PO UD PRN PRN Reason: Potssium is 3-3.5 Potassium Chloride (Potassium Chloride 20 Meq Tablet) 40 meq PO UD PRN PRN Reason: Potassium < 3 Senna (Sennosides 1 Tablet) 2 tab PO DAILYP PRN PRN Reason: Constipation Senna (Sennosides 1 Tablet) 2 tab PO HS [facility] Last Admin: 07/31/21 21:08 Dose: Not Given Documented by: Sertraline HCl (Sertraline 50 Mg Tablet) 50 mg PO QDAY [facility] Last Admin: 08/01/21 09:27 Dose: 50 mg Documented by: Sodium Biphosphate/Sodium Phosphate (Fleets Adult Enema) 1 dose [place] Q3-4DAYS PRN PRN Reason: Constipation Sodium Chloride (0.9 % Sodium Chloride 10 Ml Syringe) 10 ml IV Q8 [facility] Last Admin: 08/01/21 04:18 Dose: 10 ml Documented by: Sodium Chloride (0.9 % Sodium Chloride 10 Ml Syringe) 10 ml IV Q8 [facility] Last Admin: 08/01/21 05:13 Dose: Not Given Documented by: Temazepam (Temazepam 15 Mg Capsule) 15 mg PO HSP PRN PRN Reason: Insomnia Throat Lozenges (Benzocaine/Menthol 1 Lozenge) 1 lozenge PO PRN PRN PRN Reason: Sore Throat Last Admin: 07/31/21 10:43 Dose: 1 lozenge Documented by: Trazodone HCl (Trazodone Hcl 50 Mg Tablet) 50 - 150 mg PO HSP PRN PRN Reason: Insomnia ABG Interpretation Interpretation: normal A/P Assessment and plan (1) Fracture of hip, right, closed: Assessment and plan: fixed and wbat Status: Acute (2) Age-related osteoporosis with current pathological fracture, vertebra(e), initial encounter for fracture: Status: Chronic Comment: f/u [facility] (3) Type 2 diabetes mellitus: Status: Chronic Plan d/c home once eating well yes Narrative A/P Narrative: dc home doing well Plan of Treatment: home once eating Time Spent With Patient Time: Total time spent is greater than 50% in coordination of care (as documented) at patient's floor/unit and/or counseling patient: Total time spent with greater than 50% in coordination of care (as documented) at patient's floor/unit and/or counseling patient:: less than 15 minutes Critical Care Time: Yes Total Critical Care Time: 16 Attestation: yes
--- NOTE | 2021-08-01 11:32 | Internal Med Progress Note ---
SUBJECTIVE Subjective Patient information: Note initiated : 08/01/21 at 11:29 am Service Date, if different from initiated Date: [] Patient: Gina Garber a 65 y/o F admitted on 07/30/21 for low BS and fall. Chief Complaint: [] Principal diagnosis: total hip Interval history: Ms. Garber is a 65 year old F Patient brought in by EMS after she was found unconscious in her hotel room at the [facility]. Has been at the [facility] staying while her apartment and lap weight is being repaired. Patient typically takes Levemir 25 units twice daily and then she takes short acting Humalog with meals anywhere from 5-15. Last night her blood glucose was 200 so she took a total of 30 of Levemir and she took 15 of Humalog prior to bed. When she woke up in the middle night's at the edge of the bed reaching for a walker and started to pass out as she fell to the floor onto her right side and she does not think she hit her head. She was found to have a blood glucose of 37 by EMS She does have lower extremity edema which she has had for few weeks to months and was started on Lasix by her primary care doctor and she says the swelling is improved significantly, even though still she has 2-3+ pitting. Patient denies chest pain. She has a chronic cough from smoking and she does have a history of COPD but is not on oxygen and does not check her oxygen saturation at home. And here sats were in the 80s and she was put on oxygen. Denies any dyspnea above baseline. Dr. Valdez was contacted for surgical repair of the hip. 07/31 Status post ORIF yesterday. Home meds clarified and started morning. Blood glucose stable. Very weak on physical activity likely need SNF. Sodium mildly decreased close to baseline, potassium mildly elevated. Not restart home potassium for now. She states she needs her Lasix. 08/01: Fasting glucose 69 this morning. Serum sodium 129, potassium 5.4. Multiple episode of bowel movements, chronic according to patient. c/o 8/10 soreness of her right lateral hip. Had wheezing last night. Pending SNF placement on Tuesday08/03/21. Constitutional Vitals: Vital Signs Temp Pulse Resp BP Pulse Ox 36.0 C L 74 16 119/63 95 08/01/21 11:18 08/01/21 11:18 08/01/21 11:18 08/01/21 11:18 08/01/21 11:18 Period Temp Pulse Resp BP Sys/Macias Pulse Ox Last 24 Hr 36.0 C-36.6 C 66-81 15-20 113-139/51-90 89-100 Intake and Output 07/31/21 08/01/21 08/01/21 21:59 05:59 13:59 Intake Total 600 Output Total 1150 800 Balance -550 -800 Weight 83.552 kg Intake & Output: Intake & Output 07/31/21 08/01/21 08/01/21 21:59 05:59 13:59 Intake Total 600 Output Total 1150 800 Balance -550 -800 Weight 83.552 kg Intake: Oral 600 Output: Urine Catheter Amount 1150 800 Other: Meal Dinner Breakfast Percent of Meal Consumed 100% 75% Feeding Ability Independent Urine Appearance Clear Dodson Clear Urine Color Pale Dodson Pale Stool Size Large Stool Color Yellow Alen Colored Stool Consistency Soft Loose # Bowel Movements 2 Head Head exam: Present atraumatic and normal inspection Eye Eye exam: Present normal appearance ENT ENT exam: Present mucous membranes moist, normal exam and normal external ear exam Neck Neck exam: Present normal inspection Respiratory Respiratory exam: Present normal respiratory exam Cardiovascular Cardiovascular exam: Present normal rate and rhythm GI/Abdominal GI/Abdominal exam: Present normal bowel sounds Additional comments: Dodson catheter in place Extremities Exam Extremities exam: Present tenderness; Absent full ROM or normal inspection Additional comments: Right lateral hip covered by surgical dressing; tenderness to palpation; active and passive ROMs limited by pain. Back Exam Back exam: Present normal inspection Neurological Exam Neurological exam: Present alert and oriented X3 Skin Skin exam: Present intact and warm OBJ DATA Labs CBC & Chem 7: 07/31/21 05:17 08/01/21 05:27 Labs: Abnormal Lab Results 08/01/21 07/31/21 07/31/21 05:27 05:17 05:17 RBC Hgb Hct 24.1 L MCH MCHC RDW Seg Neutrophils % Lymphocytes % RBC Morphology Polychromasia Hypochromasia Poikilocytosis Anisocytosis Ovalocytes Sodium 129 L 129 L Potassium 5.4 H 5.6 H Carbon Dioxide 21 L BUN 34 H 29 H Creatinine 1.3 H 1.2 H Glucose 169 H Hemoglobin A1c Calcium 7.8 L 8.0 L Phosphorus 5.3 H 5.2 H Magnesium 2.6 H GGT 65 H 66 H AST 38 H 56 H ALT Alkaline Phosphatase 125 H 127 H Lactate Dehydrogenase 244 H 262 H Urine Appearance Urine Protein Ur Leukocyte Esterase Urine RBC Urine WBC Urine Bacteria Hyaline Casts Urine Mucus 07/31/21 07/30/21 07/30/21 03:07 16:43 16:29 RBC Hgb Hct MCH MCHC RDW Seg Neutrophils % Lymphocytes % RBC Morphology Polychromasia Hypochromasia Poikilocytosis Anisocytosis Ovalocytes Sodium Potassium Carbon Dioxide BUN Creatinine Glucose Hemoglobin A1c 6.7 H Calcium Phosphorus Magnesium GGT AST ALT Alkaline Phosphatase Lactate Dehydrogenase Urine Appearance Hazy A Urine Protein 30 A 30 A Ur Leukocyte Esterase 250 A Urine RBC 67 H Urine WBC 33 H Urine Bacteria Many A Hyaline Casts 5 H Urine Mucus Few A Few A 07/30/21 07/30/21 12:27 12:27 RBC 3.26 L Hgb 8.0 L Hct 26.4 L MCH 24.5 L MCHC 30.3 L RDW 16.8 H Seg Neutrophils % 91 H Lymphocytes % 4 L RBC Morphology Abnormal A Polychromasia Occ A Hypochromasia 1+ A Poikilocytosis Few A Anisocytosis 1+ A Ovalocytes Occ A Sodium 131 L Potassium Carbon Dioxide 21 L BUN 34 H Creatinine 1.2 H Glucose 107 H Hemoglobin A1c Calcium 8.1 L Phosphorus Magnesium GGT AST 58 H ALT 43 H Alkaline Phosphatase 134 H Lactate Dehydrogenase Urine Appearance Urine Protein Ur Leukocyte Esterase Urine RBC Urine WBC Urine Bacteria Hyaline Casts Urine Mucus Meds: Medications Acetaminophen (Acetaminophen 325 Mg Tablet) 650 mg PO Q6HP PRN; Protocol PRN Reason: Per Pain Protocol/Fever > 101 Hydrocodone Bitart/Acetaminophen (Hydrocodone/Apap 10/325mg Tablet) 1 - 2 tab PO Q4HP PRN; Protocol PRN Reason: Per Pain Protocol Last Admin: 08/01/21 09:24 Dose: 2 tab Documented by: Albuterol/Ipratropium (Ipratropium/Albuterol 3 Ml Ampul.Neb) 3 ml NEB Q4HP PRN PRN Reason: Shortness Of Breath Last Admin: 07/31/21 20:29 Dose: 3 ml Documented by: Amlodipine Besylate (Amlodipine 5 Mg Tablet) 5 mg PO QDAY BRITTANIE Last Admin: 08/01/21 09:24 Dose: 5 mg Documented by: Aspirin (Aspirin 81 Mg Tab.Chew) 81 mg CHEWED BID COUNTS INCLUDE 234 BEDS AT THE [facility] Last Admin: 08/01/21 09:23 Dose: 81 mg Documented by: Atorvastatin Calcium (Atorvastatin 20 Mg Tablet) 20 mg PO DAILY COUNTS INCLUDE 234 BEDS AT THE [facility] Last Admin: 08/01/21 09:27 Dose: 20 mg Documented by: Bisacodyl (Bisacodyl 10 Mg Supp.Rect) 10 mg [place] Q2-3DAYS PRN PRN Reason: Constipation Dextrose (Dextrose 50% 50 Ml Vial) 0 ml IV UD PRN PRN Reason: Per Sliding Scale Diagnostic Test (Pha) (Accu-Chek 1 Each Strip) 1 each FS QID COUNTS INCLUDE 234 BEDS AT THE [facility] Last Admin: 08/01/21 07:50 Dose: 1 each Documented by: Docusate Sodium (Docusate Sodium 100 Mg Capsule) 100 mg PO BID COUNTS INCLUDE 234 BEDS AT THE [facility] Last Admin: 08/01/21 09:27 Dose: Not Given Documented by: Furosemide (Furosemide 20 Mg Tablet) 20 mg PO BID COUNTS INCLUDE 234 BEDS AT THE [facility] Last Admin: 08/01/21 09:39 Dose: 20 mg Documented by: Gabapentin (Gabapentin 300 Mg Capsule) 300 mg PO BID COUNTS INCLUDE 234 BEDS AT THE [facility] Last Admin: 08/01/21 09:25 Dose: 300 mg Documented by: Glucose (Dextrose 31 Gm Oral.Susp) 15 gm PO PRN PRN PRN Reason: Hypoglycemia Hydromorphone HCl (Hydromorphone 1 Mg/Ml Syringe) 0.5 - 2 mg IV Q2HP PRN; Protocol PRN Reason: Per Pain Protocol Potassium Chloride 40 meq/ (Dextrose) 520 mls @ 130 mls/hr IV UD PRN PRN Reason: Potassium < 3 Magnesium Sulfate (Magnesium Sulfate) 2 gm in 50 mls @ 50 mls/hr IV UD PRN PRN Reason: Magnesium </= 1.6 Insulin Human Lispro (Insulin Lispro 1 Unit/0.01 Ml Unit) 0 unit SQ ACHS [facility]S [facility]CLUDE 234 BEDS AT THE [facility]; Protocol Last Admin: 08/01/21 07:49 Dose: Not Given Documented by: Latanoprost (Latanoprost Ophth Drops 2.5ml Bottle) 1 gtt OU HS COUNTS INCLUDE 234 BEDS AT THE [facility] Last Admin: 07/31/21 21:07 Dose: 1 gtt Documented by: Levothyroxine Sodium (Levothyroxine 25 Mcg Tablet) 25 mcg PO QAMAC COUNTS INCLUDE 234 BEDS AT THE [facility] Last Admin: 08/01/21 07:49 Dose: 25 mcg Documented by: Loperamide HCl (Loperamide 2 Mg Capsule) 2 mg PO PRN PRN PRN Reason: Diarrhea Last Admin: 07/31/21 14:40 Dose: 2 mg Documented by: Magnesium Hydroxide (Magnesium Hydroxide 30 Ml Oral.Susp) 30 ml PO BIDP PRN PRN Reason: Constipation Methocarbamol (Methocarbamol 750 Mg Tablet) 750 - 1,500 mg PO HSP PRN PRN Reason: Muscle Spasm Last Admin: 08/01/21 01:59 Dose: 750 mg Documented by: Metoclopramide HCl (Metoclopramide 10 Mg/2 Ml Vial) 10 mg IV Q6HP PRN PRN Reason: Nausea And Vomiting Metoprolol Tartrate (Metoprolol Tartrate 25 Mg Tablet) 12.5 mg PO BID COUNTS INCLUDE 234 BEDS AT THE [facility] Last Admin: 08/01/21 09:26 Dose: 12.5 mg Documented by: Morphine Sulfate (Morphine 4 Mg/Ml Vial) 0 mg IV Q3HP PRN PRN Reason: Pain Mupirocin (Mupirocin Oint 2% 22gm) 1 dose NARES BID COUNTS INCLUDE 234 BEDS AT THE [facility] Last Admin: 08/01/21 09:27 Dose: 1 dose Documented by: Nicotine (Nicotine 21 Mg Patch) 21 mg TOPICAL DAILY@1000 COUNTS INCLUDE 234 BEDS AT THE [facility] Last Admin: 08/01/21 09:22 Dose: 21 mg Documented by: Nitroglycerin (Nitroglycerin 0.4 Mg Tab.Subl) 0.4 mg SL Q5M PRN PRN Reason: Chest Pain Omeprazole (Omeprazole 20 Mg Capsule) [facility] Last Admin: 08/01/21 07:49 Dose: 40 mg Documented by: Ondansetron HCl (Ondansetron 4 Mg/2 Ml Vial) 4 mg IV Q4HP PRN PRN Reason: Nausea And Vomiting Last Admin: 07/30/21 19:00 Dose: 4 mg Documented by: Insulin Detemir [ Levemir U-100 Insulin] 100 Unit/Ml Pen 15 dose SUB-Q BID COUNTS INCLUDE 234 BEDS AT THE [facility] Last Admin: 08/01/21 09:38 Dose: 15 dose Documented by: Polyethylene Glycol (Polyethylene Glycol 3350 17 Gm Packet) 17 gm PO DAILYP PRN PRN Reason: Constipation Potassium Chloride (Potassium Chloride 20 Meq Tablet) 40 meq PO UD PRN PRN Reason: Potssium is 3-3.5 Potassium Chloride (Potassium Chloride 20 Meq Tablet) 40 meq PO UD PRN PRN Reason: Potassium < 3 Senna (Sennosides 1 Tablet) 2 tab PO DAILYP PRN PRN Reason: Constipation Senna (Sennosides 1 Tablet) 2 tab PO HS COUNTS INCLUDE 234 BEDS AT THE [facility] Last Admin: 07/31/21 21:08 Dose: Not Given Documented by: Sertraline HCl (Sertraline 50 Mg Tablet) 50 mg PO QDAY COUNTS INCLUDE 234 BEDS AT THE [facility] Last Admin: 08/01/21 09:27 Dose: 50 mg Documented by: Sodium Biphosphate/Sodium Phosphate (Fleets Adult Enema) 1 dose [place] Q3-4DAYS PRN PRN Reason: Constipation Sodium Chloride (0.9 % Sodium Chloride 10 Ml Syringe) 10 ml IV Q8 COUNTS INCLUDE 234 BEDS AT THE [facility] Last Admin: 08/01/21 04:18 Dose: 10 ml Documented by: Sodium Chloride (0.9 % Sodium Chloride 10 Ml Syringe) 10 ml IV Q8 COUNTS INCLUDE 234 BEDS AT THE [facility] Last Admin: 08/01/21 05:13 Dose: Not Given Documented by: Temazepam (Temazepam 15 Mg Capsule) 15 mg PO HSP PRN PRN Reason: Insomnia Throat Lozenges (Benzocaine/Menthol 1 Lozenge) 1 lozenge PO PRN PRN PRN Reason: Sore Throat Last Admin: 07/31/21 10:43 Dose: 1 lozenge Documented by: Trazodone HCl (Trazodone Hcl 50 Mg Tablet) 50 - 150 mg PO HSP PRN PRN Reason: Insomnia A/P Assessment and plan (1) Hypoglycemia associated with type 2 diabetes mellitus: Status: Acute (2) Diastolic CHF, chronic: Status: Acute (3) COPD (chronic obstructive pulmonary disease): Status: Chronic Qualifiers: COPD type: chronic bronchitis Chronic bronchitis type: simple Qualified Code(s): J41.0 - Simple chronic bronchitis (4) GERD (gastroesophageal reflux disease): Status: Chronic (5) Closed hip fracture: Status: Acute Comment: mobilize with PT discharge, likely to SNF, when stable and ready medically. Change to silver dressing today. (6) Hyponatremia: Status: Acute (7) Hyperkalemia: Status: Acute (8) Hypothyroidism: Status: Acute (9) Chronic diarrhea: Status: Chronic Narrative A/P Narrative: Assessment and Plans: 1. Right hip fracture: s/p right cemented hemiarthroplasty by Dr. Dia 07/30 Post operative care as per surgeon Physical therapy Occupational therapy Pain control Incentive spirometry SNF placement on 08/03/21 2. T2DM with hypoglycemia: HgA1c Insulin Detemir 15-->10 unit SQ BID to avoid hypoglycemia SSI AC HS Accu Chek AC HS Hypoglycemia protocol Diabetic diet 3. h/o diastolic CHF: Supplemental oxygen therapy as needed titrate to achieve spo2>=88% given COPD- er, currently on room air Lasix 20mg PO BID Metoprolol tartrate 4. h/o COPD: Supplemental oxygen therapy as needed titrate to achieve spo2>=88% given COPD- er, currently on room air DuoNEB NEB PRN wheezing 5. Chronic diarrhea: Imodium PRN loose stool 6. Hypothyroidism: Continue oral thyroid replacement therapy 7. Hyponatremia/Hypokalemia: s/p Kayexalate on 07/31 Continue Lasix 20mg PO BID CMP daily to trend serum sodium/potassium levels GI ppx: PO Omeprazole DVT ppx: Heparin Code status: Full Prognosis: stable Disposition: inpatient med surg; SNF placement on 08/03/21 Plan of Treatment: home once eating Time Spent With Patient Time: Total time spent is greater than 50% in coordination of care (as documented) at patient's floor/unit and/or counseling patient: Total time spent with greater than 50% in coordination of care (as documented) at patient's floor/unit and/or counseling patient:: 35 - 50 minutes QUALITY VTE Deep Vein Thrombosis/Pulmonary Embolism Present on Admission: No
[2021-08-01] MEDS: cefTRIAXone 1 GM VIAL IV SCH (19:34)
[2021-08-01] MEDS: HEPARIN 5,000 UNIT/ML VIAL SQ SCH (20:58)
[2021-08-01] MEDS: LATANOPROST OPHTH DROPS 2.5ML BOTTLE OU SCH (20:59)
[2021-08-01] MEDS: SENNOSIDES 1 TABLET PO SCH (20:59)
[2021-08-02] MEDS: HYDROcodone/APAP 10/325MG TABLET PO PRN ×3 (04:35→21:13)
[2021-08-02] MEDS: 0.9 % SODIUM CHLORIDE 10 ML SYRINGE IV SCH ×3 (05:59→21:14)
[2021-08-02 06:33] LABS: Basophils # (Auto) 0.01 K/mcL (0.00-0.30); Basophils % (Auto) 0.1 % (0.0-2.0); Eosinophils # (Auto) 0.07 K/mcL (0.00-0.70); Eosinophils % (Auto) 0.7 % (0.0-7.0); Hematocrit 22.8 % (34.1-44.9); Hemoglobin 6.8 g/dL (11.2-15.7); Lymphocytes # (Auto) 0.94 K/mcL (1.50-4.80); Mean Corpuscular HGB Conc 29.8 g/dL (31.0-36.0); Mean Platelet Volume 8.3 fL (7.4-10.4); Monocytes # (Auto) 0.64 K/mcL (0.10-0.90); Monocytes % (Auto) 6.8 % (1.0-12.0); Neutrophils % (Auto) 82.4 % (38.0-78.0); Platelet Count 202 K/mcL (140-440); RBC 2.85 M/mcL (3.59-5.38); Red Cell Distribution Width 17.1 % (11.5-14.5); WBC 9.4 K/mcL (4.5-11.0)
[2021-08-02 06:56] LABS: ALT/SGPT 11 U/L (<40); AST/SGOT 39 U/L (<32); Albumin 3.4 gm/dL (3.2-5.2); Albumin/Globulin Ratio 1.1 (1.0-2.3); Alkaline Phosphatase 147 U/L (39-117); Bilirubin,Total 0.2 mg/dL (0.1-1.0); Blood Urea Nitrogen 42 mg/dL (8-23); Calcium 7.7 mg/dL (8.6-10.4); Carbon Dioxide 23 mmol/L (22-30); Chloride 95 mmol/L (96-108); Globulin 3.1 gm/dL (2.2-3.7); Glomerular Filtration Rate 40; Glucose 89 mg/dL (70-105)
[2021-08-02 06:57] LABS: Phosphorous 5.8 mg/dL (2.5-4.5)
[2021-08-02] MEDS: GABAPENTIN 300 MG CAPSULE PO SCH ×2 (07:12→21:13)
[2021-08-02] MEDS: LEVOTHYROXINE 25 MCG TABLET PO SCH (07:12)
[2021-08-02] MEDS: OMEPRAZOLE 20 MG CAPSULE PO SCH ×2 (07:12→17:01)
[2021-08-02] MEDS: amLODIPine 5 MG TABLET PO SCH (07:13)
[2021-08-02] MEDS: METOPROLOL TARTRATE 25 MG TABLET PO SCH ×2 (07:13→21:12)
[2021-08-02] MEDS: FUROSEMIDE 20 MG TABLET PO SCH (07:13)
[2021-08-02] MEDS: ASPIRIN 81 MG TAB.CHEW CHEWED SCH ×2 (07:14→21:12)
[2021-08-02] MEDS: DOCUSATE SODIUM 100 MG CAPSULE PO SCH ×2 (07:15→21:14)
[2021-08-02] MEDS: ATORVASTATIN 20 MG TABLET PO SCH (07:15)
[2021-08-02] MEDS: HEPARIN 5,000 UNIT/ML VIAL SQ SCH ×2 (07:16→21:12)
[2021-08-02] MEDS: INSULIN LISPRO 1 UNIT/0.01 ML UNIT SQ SCH ×4 (07:17→21:11)
[2021-08-02] MEDS: INSULIN DETEMIR 100 UNIT/ML SUB-Q SCH ×2 (07:17→21:42)
[2021-08-02] MEDS: MUPIROCIN OINT 2% 22GM NARES SCH ×2 (07:17→21:12)
[2021-08-02] MEDS: cefTRIAXone 1 GM VIAL IV SCH (07:41)
[2021-08-02] MEDS: SERTRALINE 50 MG TABLET PO SCH (07:41)
[2021-08-02] MEDS: NICOTINE 21 MG PATCH TOPICAL SCH (08:04)
[2021-08-02] MEDS ORDERED: FUROSEMIDE 40 MG/4 ML VIAL IV ONE (08:30)
[2021-08-02] MEDS ORDERED: ACETAMINOPHEN 325 MG TABLET PO ONE (08:31)
[2021-08-02] MEDS ORDERED: diphenhydrAMINE 25 MG CAPSULE PO ONE (08:31)
[2021-08-02] MEDS ORDERED: 0.9 % SODIUM CHLORIDE 250 ML IV SCH (08:45)
--- NOTE | 2021-08-02 10:49 | Internal Med Progress Note ---
SUBJECTIVE Subjective Patient information: Note initiated : 08/02/21 at 10:48 am Service Date, if different from initiated Date: [] Patient: Gina Garber a 65 y/o F admitted on 07/30/21 for low BS and fall. Chief Complaint: [] Principal diagnosis: total hip Interval history: Ms. Garber is a 65 year old F Patient brought in by EMS after she was found unconscious in her hotel room at the [facility]. Has been at the [facility] staying while her apartment and lap weight is being repaired. Patient typically takes Levemir 25 units twice daily and then she takes short acting Humalog with meals anywhere from 5-15. Last night her blood glucose was 200 so she took a total of 30 of Levemir and she took 15 of Humalog prior to bed. When she woke up in the middle night's at the edge of the bed reaching for a walker and started to pass out as she fell to the floor onto her right side and she does not think she hit her head. She was found to have a blood glucose of 37 by EMS She does have lower extremity edema which she has had for few weeks to months and was started on Lasix by her primary care doctor and she says the swelling is improved significantly, even though still she has 2-3+ pitting. Patient denies chest pain. She has a chronic cough from smoking and she does have a history of COPD but is not on oxygen and does not check her oxygen saturation at home. And here sats were in the 80s and she was put on oxygen. Denies any dyspnea above baseline. Dr. Valdez was contacted for surgical repair of the hip. 07/31 Status post ORIF yesterday. Home meds clarified and started morning. Blood glucose stable. Very weak on physical activity likely need SNF. Sodium mildly decreased close to baseline, potassium mildly elevated. Not restart home potassium for now. She states she needs her Lasix. 08/01: Fasting glucose 69 this morning. Serum sodium 129, potassium 5.4. Multiple episode of bowel movements, chronic according to patient. c/o 8/10 soreness of her right lateral hip. Had wheezing last night. Pending SNF placement on Tuesday08/03/21. 08/02: Fasting glucose 69 this morning. Serum sodium 127, potassium 5.3. Denies right hip pain. c/o legs swelling. Transfuse 2 unit pRBC. Lasix 40mg IV once. Decrease long acting insulin dose. Pending SNF placement on Tuesday08/03/21. Constitutional Vitals: Vital Signs Temp Pulse Resp BP Pulse Ox 36.1 C L 69 18 133/60 99 08/02/21 07:02 08/02/21 07:02 08/02/21 07:02 08/02/21 07:02 08/02/21 09:24 Period Temp Pulse Resp BP Sys/Macias Pulse Ox Last 24 Hr 36.0 C-37.0 C 66-78 16-20 105-133/59-73 86-99 Intake and Output 08/01/21 08/02/21 08/02/21 21:59 05:59 13:59 Intake Total 960 200 Output Total 750 Balance 210 200 Weight 85.366 kg 85.23 kg Intake & Output: Intake & Output 08/01/21 08/02/21 08/02/21 21:59 05:59 13:59 Intake Total 960 200 Output Total 750 Balance 210 200 Weight 85.366 kg 85.23 kg Intake: Oral 960 200 Output: Urine Catheter Amount 750 Other: Meal Dinner Breakfast Percent of Meal Consumed 100% 100% Feeding Ability Assist with Tray Set Up Urine Appearance Cloudy Clear Sediment Dodson Cloudy Sediment Urine Color Dark Teena Dark Teena Dodson Dark Teena Stool Size Smear Large Stool Color Brown Brown Stool Consistency Dry and Hard Soft Head Head exam: Present atraumatic and normal inspection Eye Eye exam: Present normal appearance ENT ENT exam: Present mucous membranes moist, normal exam and normal external ear exam Additional comments: Nasal cannula in place Neck Neck exam: Present normal inspection Respiratory Respiratory exam: Present normal respiratory exam Cardiovascular Cardiovascular exam: Present normal rate and rhythm GI/Abdominal GI/Abdominal exam: Present normal bowel sounds Additional comments: Dodson catheter in place Extremities Exam Extremities exam: Present pedal edema Additional comments: Right lateral hip covered by surgical dressing Back Exam Back exam: Present normal inspection Neurological Exam Neurological exam: Present alert and oriented X3 Skin Skin exam: Present intact and warm OBJ DATA Labs CBC & Chem 7: 08/02/21 05:35 08/02/21 05:35 Labs: Abnormal Lab Results 08/02/21 08/02/21 08/01/21 05:35 05:35 05:27 RBC 2.85 L Hgb 6.8 L* Hct 22.8 L MCH 23.9 L MCHC 29.8 L RDW 17.1 H Neut % (Auto) 82.4 H Lymph % (Auto) 10.0 L Lymph # (Auto) 0.94 L Seg Neutrophils % Lymphocytes % RBC Morphology Polychromasia Hypochromasia Poikilocytosis Anisocytosis Ovalocytes Sodium 127 L 129 L Potassium 5.3 H 5.4 H Chloride 95 L Carbon Dioxide BUN 42 H 34 H Creatinine 1.4 H 1.3 H Glucose Hemoglobin A1c Calcium 7.7 L 7.8 L Phosphorus 5.8 H 5.3 H Magnesium GGT 65 H AST 39 H 38 H ALT Alkaline Phosphatase 147 H 125 H Lactate Dehydrogenase 244 H Urine Appearance Urine Protein Ur Leukocyte Esterase Urine RBC Urine WBC Urine Bacteria Hyaline Casts Urine Mucus 07/31/21 07/31/21 07/31/21 05:17 05:17 03:07 RBC Hgb Hct 24.1 L MCH MCHC RDW Neut % (Auto) Lymph % (Auto) Lymph # (Auto) Seg Neutrophils % Lymphocytes % RBC Morphology Polychromasia Hypochromasia Poikilocytosis Anisocytosis Ovalocytes Sodium 129 L Potassium 5.6 H Chloride Carbon Dioxide 21 L BUN 29 H Creatinine 1.2 H Glucose 169 H Hemoglobin A1c Calcium 8.0 L Phosphorus 5.2 H Magnesium 2.6 H GGT 66 H AST 56 H ALT Alkaline Phosphatase 127 H Lactate Dehydrogenase 262 H Urine Appearance Hazy A Urine Protein 30 A Ur Leukocyte Esterase 250 A Urine RBC 67 H Urine WBC 33 H Urine Bacteria Hyaline Casts Urine Mucus Few A 07/30/21 07/30/21 07/30/21 16:43 16:29 12:27 RBC Hgb Hct MCH MCHC RDW Neut % (Auto) Lymph % (Auto) Lymph # (Auto) Seg Neutrophils % Lymphocytes % RBC Morphology Polychromasia Hypochromasia Poikilocytosis Anisocytosis Ovalocytes Sodium 131 L Potassium Chloride Carbon Dioxide 21 L BUN 34 H Creatinine 1.2 H Glucose 107 H Hemoglobin A1c 6.7 H Calcium 8.1 L Phosphorus Magnesium GGT AST 58 H ALT 43 H Alkaline Phosphatase 134 H Lactate Dehydrogenase Urine Appearance Urine Protein 30 A Ur Leukocyte Esterase Urine RBC Urine WBC Urine Bacteria Many A Hyaline Casts 5 H Urine Mucus Few A 07/30/21 12:27 RBC 3.26 L Hgb 8.0 L Hct 26.4 L MCH 24.5 L MCHC 30.3 L RDW 16.8 H Neut % (Auto) Lymph % (Auto) Lymph # (Auto) Seg Neutrophils % 91 H Lymphocytes % 4 L RBC Morphology Abnormal A Polychromasia Occ A Hypochromasia 1+ A Poikilocytosis Few A Anisocytosis 1+ A Ovalocytes Occ A Sodium Potassium Chloride Carbon Dioxide BUN Creatinine Glucose Hemoglobin A1c Calcium Phosphorus Magnesium GGT AST ALT Alkaline Phosphatase Lactate Dehydrogenase Urine Appearance Urine Protein Ur Leukocyte Esterase Urine RBC Urine WBC Urine Bacteria Hyaline Casts Urine Mucus Meds: Medications Acetaminophen (Acetaminophen 325 Mg Tablet) 650 mg PO Q6HP PRN; Protocol PRN Reason: Per Pain Protocol/Fever > 101 Hydrocodone Bitart/Acetaminophen (Hydrocodone/Apap 10/325mg Tablet) 1 - 2 tab PO Q4HP PRN; Protocol PRN Reason: Per Pain Protocol Last Admin: 08/02/21 04:35 Dose: 2 tab Documented by: Albuterol/Ipratropium (Ipratropium/Albuterol 3 Ml Ampul.Neb) 3 ml NEB Q4HP PRN PRN Reason: Shortness Of Breath Last Admin: 07/31/21 20:29 Dose: 3 ml Documented by: Amlodipine Besylate (Amlodipine 5 Mg Tablet) 5 mg PO QDAY [facility] Last Admin: 08/02/21 07:13 Dose: 5 mg Documented by: Aspirin (Aspirin 81 Mg Tab.Chew) 81 mg CHEWED BID [facility] Last Admin: 08/02/21 07:14 Dose: 81 mg Documented by: Atorvastatin Calcium (Atorvastatin 20 Mg Tablet) 20 mg PO DAILY [facility] Last Admin: 08/02/21 07:15 Dose: 20 mg Documented by: Bisacodyl (Bisacodyl 10 Mg Supp.Rect) 10 mg WV Q2-3DAYS PRN PRN Reason: Constipation Ceftriaxone Sodium (Ceftriaxone 1 Gm Vial) 1 gm IV DAILY [facility]; Protocol Last Admin: 08/02/21 07:41 Dose: 1 gm Documented by: Dextrose (Dextrose 50% 50 Ml Vial) 0 ml IV UD PRN PRN Reason: Per Sliding Scale Diagnostic Test (Pha) (Accu-Chek 1 Each Strip) 1 each FS QID [facility] Last Admin: 08/02/21 07:14 Dose: 1 each Documented by: Docusate Sodium (Docusate Sodium 100 Mg Capsule) 100 mg PO BID [facility] Last Admin: 08/02/21 07:15 Dose: Not Given Documented by: Gabapentin (Gabapentin 300 Mg Capsule) 300 mg PO BID [facility] Last Admin: 08/02/21 07:12 Dose: 300 mg Documented by: Glucose (Dextrose 31 Gm Oral.Susp) 15 gm PO PRN PRN PRN Reason: Hypoglycemia Heparin Sodium (Porcine) (Heparin 5,000 Unit/Ml Vial) 5,000 unit SQ Q12 [facility] Last Admin: 08/02/21 07:16 Dose: 5,000 unit Documented by: Hydromorphone HCl (Hydromorphone 1 Mg/Ml Syringe) 0.5 - 2 mg IV Q2HP PRN; Protocol PRN Reason: Per Pain Protocol Potassium Chloride 40 meq/ (Dextrose) 520 mls @ 130 mls/hr IV UD PRN PRN Reason: Potassium < 3 Magnesium Sulfate (Magnesium Sulfate) 2 gm in 50 mls @ 50 mls/hr IV UD PRN PRN Reason: Magnesium </= 1.6 Sodium Chloride (Sodium Chloride 0.9%) 250 mls @ 20 mls/hr IV .[id number] [facility] Stop: 08/02/21 21:14 Last Admin: 08/02/21 09:14 Dose: 20 mls/hr Documented by: Insulin Human Lispro (Insulin Lispro 1 Unit/0.01 Ml Unit) 0 unit SQ ACHS [facility]; Protocol Last Admin: 08/02/21 07:17 Dose: Not Given Documented by: Latanoprost (Latanoprost Ophth Drops 2.5ml Bottle) 1 gtt OU HS [facility] Last Admin: 08/01/21 20:59 Dose: 1 gtt Documented by: Levothyroxine Sodium (Levothyroxine 25 Mcg Tablet) 25 mcg PO QAMAC [facility] Last Admin: 08/02/21 07:12 Dose: 25 mcg Documented by: Loperamide HCl (Loperamide 2 Mg Capsule) 2 mg PO PRN PRN PRN Reason: Diarrhea Last Admin: 07/31/21 14:40 Dose: 2 mg Documented by: Magnesium Hydroxide (Magnesium Hydroxide 30 Ml Oral.Susp) 30 ml PO BIDP PRN PRN Reason: Constipation Methocarbamol (Methocarbamol 750 Mg Tablet) 750 - 1,500 mg PO HSP PRN PRN Reason: Muscle Spasm Last Admin: 08/01/21 16:01 Dose: 750 mg Documented by: Metoclopramide HCl (Metoclopramide 10 Mg/2 Ml Vial) 10 mg IV Q6HP PRN PRN Reason: Nausea And Vomiting Metoprolol Tartrate (Metoprolol Tartrate 25 Mg Tablet) 12.5 mg PO BID [facility] Last Admin: 08/02/21 07:13 Dose: 12.5 mg Documented by: Morphine Sulfate (Morphine 4 Mg/Ml Vial) 0 mg IV Q3HP PRN PRN Reason: Pain Mupirocin (Mupirocin Oint 2% 22gm) 1 dose NARES BID [facility] Last Admin: 08/02/21 07:17 Dose: 1 dose Documented by: Nicotine (Nicotine 21 Mg Patch) 21 mg TOPICAL DAILY@1000 [facility] Last Admin: 08/02/21 08:04 Dose: 21 mg Documented by: Nitroglycerin (Nitroglycerin 0.4 Mg Tab.Subl) 0.4 mg SL Q5M PRN PRN Reason: Chest Pain [facility] ([facility]) [facility] Last Admin: 08/02/21 07:12 Dose: 40 mg Documented by: Ondansetron HCl (Ondansetron 4 Mg/2 Ml Vial) 4 mg IV Q4HP PRN PRN Reason: Nausea And Vomiting Last Admin: 07/30/21 19:00 Dose: 4 mg Documented by: Insulin Detemir [ Levemir U-100 Insulin] 100 Unit/Ml Pen 15 dose SUB-Q BID [facility] Last Admin: 08/02/21 07:17 Dose: Not Given Documented by: Polyethylene Glycol (Polyethylene Glycol 3350 17 Gm Packet) 17 gm PO DAILYP PRN PRN Reason: Constipation Potassium Chloride (Potassium Chloride 20 Meq Tablet) 40 meq PO UD PRN PRN Reason: Potssium is 3-3.5 Potassium Chloride (Potassium Chloride 20 Meq Tablet) 40 meq PO UD PRN PRN Reason: Potassium < 3 Senna (Sennosides 1 Tablet) 2 tab PO DAILYP PRN PRN Reason: Constipation Senna (Sennosides 1 Tablet) 2 tab PO HS [facility] Last Admin: 08/01/21 20:59 Dose: Not Given Documented by: Sertraline HCl (Sertraline 50 Mg Tablet) 50 mg PO QDAY [facility] Last Admin: 08/02/21 07:41 Dose: 50 mg Documented by: Sodium Biphosphate/Sodium Phosphate (Fleets Adult Enema) 1 dose WV Q3-4DAYS PRN PRN Reason: Constipation Sodium Chloride (0.9 % Sodium Chloride 10 Ml Syringe) 10 ml IV Q8 [facility] Last Admin: 08/02/21 05:59 Dose: 10 ml Documented by: Temazepam (Temazepam 15 Mg Capsule) 15 mg PO HSP PRN PRN Reason: Insomnia Throat Lozenges (Benzocaine/Menthol 1 Lozenge) 1 lozenge PO PRN PRN PRN Reason: Sore Throat Last Admin: 07/31/21 10:43 Dose: 1 lozenge Documented by: Trazodone HCl (Trazodone Hcl 50 Mg Tablet) 50 - 150 mg PO HSP PRN PRN Reason: Insomnia A/P Assessment and plan (1) Hypoglycemia associated with type 2 diabetes mellitus: Status: Acute (2) Diastolic CHF, chronic: Status: Acute (3) COPD (chronic obstructive pulmonary disease): Status: Chronic Qualifiers: COPD type: chronic bronchitis Chronic bronchitis type: simple Qualified Code(s): J41.0 - Simple chronic bronchitis (4) GERD (gastroesophageal reflux disease): Status: Chronic (5) Closed hip fracture: Status: Acute Comment: mobilize with PT discharge, likely to SNF, when stable and ready medically. Change to silver dressing today. (6) Hyponatremia: Status: Acute (7) Hyperkalemia: Status: Acute (8) Hypothyroidism: Status: Acute (9) Chronic diarrhea: Status: Chronic (10) UTI (urinary tract infection): Status: Acute (11) Hypochromic anemia: Status: Acute (12) Stage 1 acute kidney injury: Status: Acute Narrative A/P Narrative: Assessment and Plans: 1. Right hip fracture: s/p right cemented hemiarthroplasty by Dr. Dia 07/30 Post operative care as per surgeon Physical therapy Occupational therapy Pain control Incentive spirometry SNF placement on 08/03/21 2. T2DM with hypoglycemia: HgA1c Insulin Lantus 5 unit SQ BID to avoid hypoglycemia SSI AC HS Accu Chek AC HS Hypoglycemia protocol Diabetic diet 3. h/o diastolic CHF: Supplemental oxygen therapy as needed titrate to achieve spo2>=88% given COPD- er, currently on 2L/min Lasix 40mg IV once Metoprolol tartrate 4. h/o COPD: Supplemental oxygen therapy as needed titrate to achieve spo2>=88% given COPD- er, currently on 2L/min DuoNEB NEB PRN wheezing 5. Chronic diarrhea: Imodium PRN loose stool 6. Hypothyroidism: Continue oral thyroid replacement therapy 7. Hyponatremia/Hypokalemia: s/p Kayexalate on 07/31 Saline lock Lasix 40mg IV once CMP daily to trend serum sodium/potassium levels 8. Hypochromic anemia: 2 unit pRBC transfusion cbc w/ auto diff in the morning to trend H/H 9. K pneumoniae UTI: Urine culture: K pneumoniae Blood culture Rocephin Tylenol PRN fever cbc w/ auto diff in the morning to trend WBC 10. Stage 1 acute kidney injury: Avoid nephrotoxic agents Saline lock with Lasix 40mg IV once CMP in the morning to trend kidney functions GI ppx: PO Omeprazole DVT ppx: Heparin Code status: Full Prognosis: stable Disposition: inpatient med surg; SNF placement on 08/03/21 Plan of Treatment: home once eating Time Spent With Patient Time: Total time spent is greater than 50% in coordination of care (as documented) at patient's floor/unit and/or counseling patient: Total time spent with greater than 50% in coordination of care (as documented) at patient's floor/unit and/or counseling patient:: 35 - 50 minutes QUALITY VTE Deep Vein Thrombosis/Pulmonary Embolism Present on Admission: No
[2021-08-02] MEDS: INSULIN GLARGINE, HUMAN 1 UNIT/0.01 ML SQ SCH (21:11)
[2021-08-02] MEDS: LATANOPROST OPHTH DROPS 2.5ML BOTTLE OU SCH (21:12)
[2021-08-02] MEDS: METHOCARBAMOL 750 MG TABLET PO PRN (21:13)
[2021-08-02] MEDS: SENNOSIDES 1 TABLET PO SCH (21:14)
[2021-08-03] MEDS: HYDROcodone/APAP 10/325MG TABLET PO PRN ×3 (02:58→11:08)
[2021-08-03] MEDS: BENZOCAINE/MENTHOL 1 LOZENGE PO PRN (03:46)
[2021-08-03] MEDS: 0.9 % SODIUM CHLORIDE 10 ML SYRINGE IV SCH (05:37)
[2021-08-03] MEDS: OMEPRAZOLE 20 MG CAPSULE PO SCH (07:05)
[2021-08-03] MEDS: LEVOTHYROXINE 25 MCG TABLET PO SCH (07:07)
[2021-08-03] MEDS: INSULIN LISPRO 1 UNIT/0.01 ML UNIT SQ SCH (07:24)
[2021-08-03 07:35] LABS: Basophils # (Auto) 0.02 K/mcL (0.00-0.30); Basophils % (Auto) 0.2 % (0.0-2.0); Eosinophils # (Auto) 0.07 K/mcL (0.00-0.70); Eosinophils % (Auto) 0.8 % (0.0-7.0); Hematocrit 31.2 % (34.1-44.9); Hemoglobin 9.6 g/dL (11.2-15.7); Lymphocytes # (Auto) 0.75 K/mcL (1.50-4.80); Lymphocytes % (Auto) 8.5 % (15.5-49.0); Mean Cell Volume 83.6 fL (80.0-100.0); Mean Corpuscular HGB Conc 30.8 g/dL (31.0-36.0); Mean Platelet Volume 8.4 fL (7.4-10.4); Monocytes # (Auto) 0.56 K/mcL (0.10-0.90); Monocytes % (Auto) 6.4 % (1.0-12.0); Neutrophils % (Auto) 84.1 % (38.0-78.0); Platelet Count 189 K/mcL (140-440); RBC 3.73 M/mcL (3.59-5.38); Red Cell Distribution Width 17.4 % (11.5-14.5); WBC 8.8 K/mcL (4.5-11.0)
[2021-08-03 08:03] LABS: ALT/SGPT 15 U/L (<40); AST/SGOT 43 U/L (<32); Albumin 3.2 gm/dL (3.2-5.2); Albumin/Globulin Ratio 0.9 (1.0-2.3); Alkaline Phosphatase 183 U/L (39-117); Bilirubin,Total 0.2 mg/dL (0.1-1.0); Blood Urea Nitrogen 38 mg/dL (8-23); Calcium 8.1 mg/dL (8.6-10.4); Carbon Dioxide 25 mmol/L (22-30); Chloride 93 mmol/L (96-108); Globulin 3.5 gm/dL (2.2-3.7); Glomerular Filtration Rate 53; Glucose 73 mg/dL (70-105); Phosphorous 4.7 mg/dL (2.5-4.5)
[2021-08-03] MEDS: ATORVASTATIN 20 MG TABLET PO SCH (08:49)
[2021-08-03] MEDS: ASPIRIN 81 MG TAB.CHEW CHEWED SCH (08:49)
[2021-08-03] MEDS: DOCUSATE SODIUM 100 MG CAPSULE PO SCH ×2 (08:49→09:02)
[2021-08-03] MEDS: amLODIPine 5 MG TABLET PO SCH (08:50)
[2021-08-03] MEDS: SERTRALINE 50 MG TABLET PO SCH (08:50)
[2021-08-03] MEDS: GABAPENTIN 300 MG CAPSULE PO SCH (08:50)
[2021-08-03] MEDS: METOPROLOL TARTRATE 25 MG TABLET PO SCH (08:50)
[2021-08-03] MEDS: INSULIN GLARGINE, HUMAN 1 UNIT/0.01 ML SQ SCH (08:51)
[2021-08-03] MEDS: HEPARIN 5,000 UNIT/ML VIAL SQ SCH (08:51)
[2021-08-03] MEDS: MUPIROCIN OINT 2% 22GM NARES SCH (08:55)
[2021-08-03] MEDS: cefTRIAXone 1 GM VIAL IV SCH (09:06)
[2021-08-03] MEDS: NICOTINE 21 MG PATCH TOPICAL SCH (09:15)
--- NOTE | 2021-08-03 10:44 | Discharge Summary ---
Discharge Provider Provider Patient information: Note initiated : 08/03/21 at 10:39 am Service Date, if different from initiated Date: [] Patient: Gina Garber 65 y/o F admitted on 07/30/21 for low BS and fall. Chief Complaint: [] Date of admission: 07/30/21 16:41 Discharge date: 08/03/21 Primary care physician: NORMA Alfaro Attending physician on admission: Jameel Kirk Consults: 07/30/21 Consult to Physician [CONS] Stat Comment: Consulting Provider: Kenji Dia Reason For Exam: Physician to Consult Consult to Physician [CONS] Stat Comment: Consulting Provider: Elliott Owen Reason For Exam: Physician to Consult Attending physician on discharge: Jameel Kirk Discharge Meds Discharge Medications Home Medications potassium chloride 20 mEq tablet,extended release(part/cryst) 20 meq PO BIDCC #10 tab 12/16/17 [Rx Confirmed 07/30/21 Last Taken 07/29/21] aspirin 325 mg tablet 325 mg PO .COMPLEX 08/20/19 [History Confirmed 07/30/21 Last Taken 07/24/21] lidocaine 5 % topical cream 1 applic TOPICAL .COMPLEX 08/20/19 [History Confirmed 07/30/21 Last Taken Unknown] atorvastatin 40 mg tablet 20 mg PO DAILY #30 tab 11/17/20 [Rx Confirmed 07/30/21 Last Taken Unknown] metoprolol tartrate 25 mg tablet 12.5 mg PO BID #30 tab 11/17/20 [Rx Confirmed 07/30/21 Last Taken Unknown] hydrocodone 5 mg-acetaminophen 325 mg tablet 1 - 2 tab PO Q6HP PRN #20 tab 11/18/20 [Rx Confirmed 07/30/21 Last Taken Unknown] albuterol sulfate 90 mcg/actuation aerosol inhaler 2 puff INHALATION Q6H PRN #8.5 g 04/21/21 [Rx Confirmed 07/30/21 Last Taken 07/28/21] insulin lispro 100 unit/mL subcutaneous pen 1 sliding scale dose SUBCUT USEASDIRECTD 04/21/21 [History Confirmed 07/30/21 Last Taken 07/29/21 15] Tylenol Extra Strength 1,000 mg PO PRN PRN 07/30/21 [History Confirmed 07/30/21 Last Taken 07/28/21] amlodipine 5 mg tablet 1 tab PO QDAY 07/30/21 [History Confirmed 07/30/21 Last Taken 07/29/21] amoxicillin 500 mg capsule 2 cap PO BID 07/30/21 [History Confirmed 07/30/21 Last Taken 07/08/21] calcium citrate 200 mg PO TID 07/30/21 [History Confirmed 07/30/21 Last Taken 07/29/21] furosemide 20 mg tablet 1 tab PO BID 07/30/21 [History Confirmed 07/30/21 Last Taken 07/29/21] gabapentin 300 mg capsule 2 cap PO BID 07/30/21 [History Confirmed 07/30/21 Last Taken 07/29/21] insulin detemir U-100 100 unit/mL subcutaneous solution (Levemir U-100 Insulin) 20 unit SUBCUT BID 07/30/21 [History Confirmed 07/30/21 Last Taken 07/29/21] latanoprost 0.005 % eye drops 1 drp OPHTHALMIC (EYE) HS 07/30/21 [History Confirmed 07/30/21 Last Taken 07/29/21] levothyroxine 25 mcg tablet 1 tab PO QDAY 07/30/21 [History Confirmed 07/30/21 Last Taken 07/29/21] methocarbamol 750 mg tablet 750 - 1,500 mg PO HSP PRN #0 07/30/21 [History Confirmed 07/31/21 Last Taken 07/29/21] nitroglycerin 0.1 mg/hr transdermal 24 hour patch 1 patch TOPICAL PRN PRN 07/30/21 [History Confirmed 07/30/21 Last Taken Unknown] nitroglycerin 0.4 mg sublingual tablet 0.4 mg SUBLINGUAL PRN PRN 07/30/21 [History Confirmed 07/30/21 Last Taken Unknown] omeprazole 40 mg capsule,delayed release 1 cap PO BID 07/30/21 [History Confirmed 07/30/21 Last Taken 07/29/21] sertraline 50 mg tablet 1 tab PO QDAY 07/30/21 [History Confirmed 07/30/21 Last Taken 07/29/21] sodium chloride 1 - 2 tab PO BID 07/30/21 [History Confirmed 07/30/21 Last Taken 07/28/21] trazodone 50 mg tablet 1 - 3 tab PO HSP PRN 07/30/21 [History Confirmed 03/17/22 Last Taken 07/29/21] aspirin 81 mg chewable tablet 81 mg PO BID 30 Days #60 tab 07/31/21 [Rx Last Taken Unknown] hydrocodone 10 mg-acetaminophen 325 mg tablet 1 - 2 tab PO Q4HP PRN #60 tab 07/31/21 [Rx Last Taken Unknown] nicotine 21 mg/24 hr daily transdermal patch 21 mg TOPICAL DAILY@1000 #21 ea 08/03/21 [Rx Last Taken Unknown] sulfamethoxazole 800 mg-trimethoprim 160 mg tablet (Bactrim DS) 1 tab PO BID #6 tab 08/03/21 [Rx Last Taken Unknown] COURSE Hospital Course Hospital course: Ms. Garber is a 65 year old F Patient brought in by EMS after she was found unconscious in [facility]. [facility] staying while her apartment and lap weight is being repaired. Patient typically takes Levemir 25 units twice daily and then she takes short acting Humalog with meals anywhere from 5-15. Last night her blood glucose was 200 so she took a total of 30 of Levemir and she took 15 of Humalog prior to bed. When she woke up in the middle night's at the edge of the bed reaching for a walker and started to pass out as she fell to the floor onto her right side and she does not think she hit her head. She was found to have a blood glucose of 37 by EMS She does have lower extremity edema which she has had for few weeks to months and was started on Lasix by her primary care doctor and she says the swelling is improved significantly, even though still she has 2-3+ pitting. Patient denies chest pain. She has a chronic cough from smoking and she does have a history of COPD but is not on oxygen and does not check her oxygen saturation at home. And here sats were in the 80s and she was put on oxygen. Denies any dyspnea above baseline. Dr. Valdez was contacted for surgical repair of the hip. 07/31 Status post ORIF yesterday. Home meds clarified and started morning. Blood glucose stable. Very weak on physical activity likely need SNF. Sodium mildly decreased close to baseline, potassium mildly elevated. Not restart home potassium for now. She states she needs her Lasix. 08/01: Fasting glucose 69 this morning. Serum sodium 129, potassium 5.4. Multiple episode of bowel movements, chronic according to patient. jimbo/[id number] 12/23 soreness of her right lateral hip. Had wheezing last night. Pending SNF placement on Tuesday08/03/21. 08/02: Fasting glucose 69 this morning. Serum sodium 127, potassium 5.3. Denies right hip pain. c/o legs swelling. Transfuse 2 unit pRBC. Lasix 40mg IV once. Decrease long acting insulin dose. Pending SNF placement on Tuesday08/03/21. 08/03: Reached clinical stability. Will discharge to SNF with follow up appointments with PCP and orthopedic surgeon made for her. Rx including antibiotics given. All questions were answered prior to patient being physically discharged. Discharge diagnosis: Right hip fracture, urinary tract infection Time Spent with Patient Time attestation: Total time spent providing and/or coordinating discharge services: Time spent: Less than 30 minutes EXAM Constitutional Vitals: Temp Pulse Resp BP Pulse Ox 35.9 C L 67 14 135/78 99 08/03/21 07:21 08/03/21 07:08/03/21 07:08/03/21 07:08/03/21 08:00 General appearance: cooperative and no acute distress Head Head exam: Present atraumatic and normocephalic Eye Eye exam: Present EOMI and PERRL ENT ENT exam: Present mucous membranes moist, normal exam and normal external ear exam Additional comments: Nasal cannula in place Neck Neck exam: Present normal inspection; Absent lymphadenopathy, tenderness or thyromegaly Respiratory Respiratory exam: Absent accessory muscle use, respiratory distress or wheezes Cardiovascular Cardiovascular exam: Present normal rate and rhythm; Absent JVD GI/Abdominal GI/Abdominal exam: Present normal bowel sounds and soft; Absent organomegaly or tenderness Extremities Exam Extremities exam: Present normal capillary refill; Absent full ROM, normal inspection or tenderness Additional comments: Right lateral hip covered by surgical dressing Neurological Exam Neurological exam: Present alert, CN II-XII intact and oriented X3; Absent motor sensory deficit Psychiatric Psychiatric exam: Present normal affect and normal mood; Absent anxious or depressed Skin Skin exam: Present dry and intact Discharge Data Data Completed and Pending Labs on day of discharge: Labs from last 24 hours 08/03/21 08/03/21 05:35 05:35 WBC 8.8 RBC 3.73 Hgb 9.6 L Hct 31.2 L MCV 83.6 MCH 25.7 L MCHC 30.8 L RDW 17.4 H Plt Count 189 MPV 8.4 Neut % (Auto) 84.1 H Lymph % (Auto) 8.5 L Carson % (Auto) 6.4 Eos % (Auto) 0.8 Baso % (Auto) 0.2 Lymph # (Auto) 0.75 L Carson # (Auto) 0.56 Eos # (Auto) 0.07 Baso # (Auto) 0.02 Absolute Neutrophils 7.40 Sodium 127 L Potassium 5.2 H Chloride 93 L Carbon Dioxide 25 Anion Gap 9.0 BUN 38 H Creatinine 1.1 GFR Calculation 53 Glucose 73 Calcium 8.1 L Phosphorus 4.7 H Magnesium 2.4 Total Bilirubin 0.2 AST 43 H ALT 15 Alkaline Phosphatase 183 H Total Protein 6.7 Albumin 3.2 Globulin 3.5 Albumin/Globulin Ratio 0.9 L Discharge Plan Patient/Caregiver Discharge Instructions Activity: increase activity as tolerated Diet: Consistent Carbohydrate Instructions: Hydrocodone/Acetaminophen (By mouth), Asthma (DC), Diabetes Insipidus (DC), Reactive Airways Disease (GEN), ORIF of Hip Fracture (DC) Activity Restrictions/Additional Instructions: Discharge Instructions: Do the exercises at home that physical therapy gave you. Weight bearing as tolerated. Wear comfortable clothing for physical therapy. Take your prescription, photo ID, insurance cards, and current medication list with you to your first physical therapy appointment. Take your prescription to cloth picker any medication or equipment (such as walker, crutches, toilet riser or C.P.M.) You have the silver dressing, leave in place for 7 days then remove. If dressing becomes soiled (turns black), remove and use gauze 4x4 dressing and antimicrobial silver ointment ([id number]) and change daily. You may shower with dressing on, pat dry after shower. You may start showering on post op day #2, Sat August 01. To avoid constipation while taking any narcotic pain medication, take an over the counter stool softener/laxative. Use your ice packs as directed. Ice and elevation will help with pain and swelling. If you have any questions or concerns call your orthopedic surgeon before going to the emergency room. [facility] has a window/distribution clerk physician 24 hours per day/7 days per week and can be reached at [phone]. Call for fevers above 100.5 or pain not controlled by medication. Your prescriptions are with your discharge information. Some medications were electronically transmitted to your pharmacy of choice. Take Aspirin as prescribed to prevent blood clots (see medication list). This discharge packet is provided to you to help keep you informed about your care. We want to ensure you get everything you need when you go home. You will also be receiving a call from us in a few days to follow up with you and see how you are doing since your discharge. This gives us a chance to listen to any concerns you maybe experiencing since you were discharged or any additional needs you may have, as well as providing us feedback on your care experience. We strive to always provide excellent care and thank you for your feedback and for choosing [facility]. Prescriptions: New hydrocodone-acetaminophen 10-325 mg Tablet 1 - 2 tab PO Q4HP PRN (Reason: Per Pain Protocol) Qty: 60 0RF aspirin 81 mg Tablet,Chewable 81 mg PO BID 30 Days Qty: 60 0RF nicotine 21 mg/24 hr Patch 24 Hour 21 mg topical DAILY@1000 Qty: 21 0RF sulfamethoxazole-trimethoprim [Bactrim DS] 800-160 mg tablet 1 tab PO BID Qty: 6 0RF Continued lidocaine 5 % cream 1 applic TOPICAL .COMPLEX 0RF Rx Instructions: 1 applic topical UNKNOWN; aspirin 325 mg tablet 325 mg PO .COMPLEX 0RF Rx Instructions: 325 mg PO UNKNOWN; insulin lispro 100 unit/mL insulin pen 1 sliding scale dose subcut USEASDIRECTD 0RF albuterol sulfate 90 mcg/actuation HFA aerosol inhaler 2 puff inhalation Q6H PRN (Reason: shortness of breath or wheezing) Qty: 8.5 3RF potassium chloride 20 MEQ tablet 20 meq PO BIDCC Qty: 10 0RF atorvastatin 40 mg Tablet 20 mg PO DAILY Qty: 30 0RF metoprolol tartrate 25 mg Tablet 12.5 mg PO BID Qty: 30 0RF hydrocodone-acetaminophen 1 TAB tablet 1 - 2 tab PO Q6HP PRN (Reason: Pain) Qty: 20 0RF methocarbamol 750 mg Tablet 750 - 1,500 mg PO HSP PRN (Reason: Pain) Qty: 0 0RF gabapentin 300 mg capsule 2 cap PO BID 0RF Tylenol Extra Strength 500 mg 1,000 mg PO PRN PRN (Reason: Pain) 0RF trazodone 50 mg tablet 1 - 3 tab PO HSP PRN (Reason: Insomnia) 0RF Rx Instructions: Take 3 tablets by mouth every day at bedtime calcium citrate 200 mg tablet 200 mg PO TID 0RF sodium chloride 1,000 mg tablet 1 - 2 tab PO BID 0RF amoxicillin 500 mg capsule 2 cap PO BID 0RF latanoprost 0.005 % drops 1 drp OPHTHALMIC (EYE) HS 0RF Label Comments: [NO ORIGINAL SIG] furosemide 20 mg tablet 1 tab PO BID 0RF amlodipine 5 mg tablet 1 tab PO QDAY 0RF levothyroxine 25 mcg tablet 1 tab PO QDAY 0RF Levemir U-100 Insulin 100 unit/mL solution 20 unit subcut BID 0RF nitroglycerin 0.1 mg/hr patch 24 hour 1 patch topical PRN PRN (Reason: Chest Pain) 0RF nitroglycerin 0.4 mg tablet, sublingual 0.4 mg sublingual PRN PRN (Reason: Chest Pain) 0RF omeprazole 40 mg capsule,delayed release(DR/EC) 1 cap PO BID 0RF sertraline 50 mg tablet 1 tab PO QDAY 0RF Follow Up Plan Follow up with: PCP,PCP [Other] Soha Alfaro ARNP [Primary Care Provider] - Kenneth Rodríguez PA-C [Physician [employer] Secretary] - 08/11/21 3:00 pm Patient Disposition: Xfer SNF Plan of Treatment: home once eating Rehab Potential: Good I certify that the patient requires SNF services: Yes Overall status at discharge: patient is progressing back to baseline Discharge Orders: Discharge Order (Routine); Ordered 08/03/21 Ordered By: Kenji MAYER VTE Deep Vein Thrombosis/Pulmonary Embolism Present on Admission: No
== END 2021-08-03 11:10 | DRG 522 ==
LOC: ED 11:17 → MEDSUR 16:41
PROVIDERS: ADMIT Internal Medicine; ATTEND Internal Medicine